=== PATIENT | female | born 1955 | race Caucasian/White ===

== ENCOUNTER → 2017-03-13 | Outpatient (CLI) | payer MEDICARE ==
[2017-03-13 12:06] LABS: ALT 47 U/L (9-52); AST 37 U/L (14-36); Alkaline Phosphatase 69 U/L (38-126); Anion Gap 12 mmol/L; Blood Urea Nitrogen 12 mg/dL (7-17); Calcium 9.8 mg/dL (8.4-10.2); Carbon Dioxide 25 mmol/L (22-30); Chloride 100 mmol/L (98-107); Cholesterol 243 mg/dL (<200); Glucose 223 mg/dL (74-99); HDL Cholesterol 49 mg/dL (40-60); Non-African American GFR(MDRD) >60 (>60 ml/min/1.73 sqM); Potassium 4.8 mmol/L (3.5-5.1); Sodium 137 mmol/L (137-145); Total Bilirubin 0.7 mg/dL (0.2-1.3); Total Protein 7.5 g/dL (6.3-8.2); Triglycerides 460 mg/dL (<150)
== END ==
LOC: LABWHC1 11:27
PROVIDERS: ATTEND Internal Medicine Interventional Cardiology
DX: E78.2 Mixed hyperlipidemia (principal)
CPT/HCPCS: 36415; 80053; 80061

== ENCOUNTER 2022-10-20 05:01 | Emergency (ER) | payer MEDICARE ==
[2022-10-20 05:06] VITALS: RESP 16
[2022-10-20] MEDS ORDERED: ASPIRIN 81 MG PO STA (05:21)
--- NOTE | 2022-10-20 05:25 | ED ---
Chest Pain HPI - General Chief Complaint: Chest Pain Stated Complaint: Chest Pain Time Seen by Provider: 10/20/22 05:11 Source: patient, family Mode of arrival: wheelchair - History of Present Illness Initial Comments: This patient is a 67-year-old woman who presents evaluation for chest pressure that developed a little over 2 hours ago while she was in bed trying to sleep. Patient has been states she has been stressed about her cat that is denying. She noticed she was having pressure in the chest that radiated to her neck and to her right upper extremity. No associated symptoms. The pain did not resolve she came here to have further evaluation. MD Complaint: chest pain -: hour(s) Onset: during rest Pain Location: substernal Pain Radiation: RUE, jaw/teeth Severity: mild Quality: heaviness Consistency: constant Improves With: nothing Worsens With: nothing Treatments Prior to Arrival: none - Related Data Home Medications Medication Instructions Recorded Confirmed Aspirin EC [Ecotrin] 325 mg PO DAILY 09/19/17 09/19/17 Atorvastatin [Lipitor] 40 mg PO HS 09/19/17 09/19/17 Citalopram Hydrobromide [CeleXA] 40 mg PO DAILY 09/19/17 09/19/17 Clopidogrel Bisulfate [Plavix] 75 mg PO DAILY 09/19/17 09/19/17 Dulaglutide [Trulicity] 1.5 mg SQ FR 09/19/17 09/19/17 Empagliflozin [Jardiance] 10 mg PO DAILY 09/19/17 09/19/17 Insulin Detemir [Levemir Flextouch 30 unit SQ QAM 09/19/17 09/19/17 Pen] Insulin Detemir [Levemir Flextouch 40 units SQ HS 09/19/17 09/19/17 Pen] Meclizine HCl 25 mg PO Q8H PRN 09/19/17 09/19/17 Metoprolol Tartrate [Lopressor] 12.5 mg PO BID 09/19/17 09/19/17 Omeprazole 20 mg PO DAILY PRN 09/19/17 09/19/17 guaiFENesin [Mucinex] 600 mg PO DAILY PRN 09/19/17 09/19/17 metFORMIN HCL [Glucophage] 1,000 mg PO BID 09/19/17 09/19/17 Previous Rx's Medication Instructions Recorded Isosorbide Mononitrate ER [Imdur] 30 mg PO DAILY #30 tab.er.24h 09/20/17 Nitroglycerin Sl Tabs [Nitrostat] 0.4 mg SUBLINGUAL Q5M PRN #25 tab 09/20/17 Allergies Allergy/AdvReac Type Severity Reaction Status Date / Time No Known Allergies Allergy Verified 10/20/22 05:06 Review of Systems ROS Statement: Those systems with pertinent positive or pertinent negative responses have been documented in the HPI. ROS Other: All systems not noted in ROS Statement are negative. Constitutional: Denies: fever, chills, weakness Respiratory: Denies: cough, dyspnea Cardiovascular: Reports: chest pain. Denies: palpitations, orthopnea, edema, syncope Gastrointestinal: Denies: abdominal pain, nausea, vomiting Genitourinary: Denies: dysuria, hematuria Musculoskeletal: Denies: back pain Skin: Denies: rash Neurological: Denies: headache, weakness, numbness EKG Findings - EKG Results: EKG: interpreted by GINA MEDINA, sinus rhythm (Rate 68 bpm), normal axis, normal QRS, normal ST/T, no acute changes Past Medical History Past Medical History: Chest Pain / Angina, CVA/TIA, Diabetes Mellitus, Hyperlipidemia, Hypertension, Myocardial Infarction ([place]), Sleep Apnea/CPAP/BIPAP Last Myocardial Infarction Date:: 2006 History of Any Multi-Drug Resistant Organisms: None Reported Past Surgical History: Section, Cholecystectomy, Heart Catheterization With Stent Additional Past Surgical History / Comment(s): 2012 dr wilson repaired/replace a stent Past Anesthesia/Blood Transfusion Reactions: No Reported Reaction Date of Last Stent Placement:: 2012 Past Psychological History: No Psychological Hx Reported Past Alcohol Use History: None Reported Past Drug Use History: None Reported - Past Family History Mother Additional Family Medical History / Comment(s): passed from liver failure. No history of coronary artery disease. Father Additional Family Medical History / Comment(s): passed from kidney failure. No history of coronary artery disease. Sister(s) Family Medical History: No Reported History Brother(s) Family Medical History: No Reported History Daughter(s) Family Medical History: No Reported History Son(s) Additional Family Medical History / Comment(s): both sons have addiction problems, depression and anxiety General Exam General appearance: alert, in no apparent distress Head exam: Present: atraumatic, normocephalic Eye exam: Present: normal appearance. Absent: scleral icterus, conjunctival injection Neck exam: Present: normal inspection Respiratory exam: Present: normal lung sounds bilaterally. Absent: respiratory distress, wheezes, rales, rhonchi, stridor Cardiovascular Exam: Present: regular rate, normal rhythm, normal heart sounds. Absent: systolic murmur, diastolic murmur, rubs, gallop GI/Abdominal exam: Present: soft. Absent: distended, tenderness, guarding, rebound, rigid, mass Extremities exam: Present: normal inspection, normal capillary refill. Absent: pedal edema, calf tenderness Back exam: Present: normal inspection. Absent: CVA tenderness (R), CVA tenderness (L) Neurological exam: Present: alert Skin exam: Present: warm, dry, intact, normal color. Absent: rash Course Vital Signs 10/20/22 10/20/22 10/20/22 05:04 05:06 06:06 Temperature 97.6 F Pulse Rate 74 68 Respiratory 16 16 16 Rate Blood Pressure 157/74 135/74 O2 Sat by Pulse 99 98 Oximetry 10/20/22 06:24 Temperature 98.8 F Pulse Rate 70 Respiratory 16 Rate Blood Pressure 130/74 O2 Sat by Pulse 98 Oximetry Disposition Clinical Impression: Chest pain Disposition: HOME SELF-CARE Condition: Good Instructions (If sedation given, give patient instructions): Chest Pain (ED) Is patient prescribed a controlled substance at d/c from ED?: No Referrals: Varun Hartley MD [Primary Care Provider] - 1-2 days
[2022-10-20 05:36] LABS: Basophils # (A) 0.1 k/uL (0-0.2); Basophils % (A) 1 %; Eosinophils # (A) 0.2 k/uL (0-0.7); Eosinophils % (A) 4 %; HCT 34.8 % (34.0-46.0); HGB 12.3 gm/dL (11.4-16.0); Hypochromasia Slight; Lymphocytes # (A) 2.4 k/uL (1.0-4.8); Lymphocytes % (A) 36 %; MCH 30.7 pg (25.0-35.0); MCHC 35.2 g/dL (31.0-37.0); MCV 87.3 fL (80.0-100.0); Mean Platelet Volume 7.7; Monocytes # (A) 0.3 k/uL (0-1.0); Monocytes % (A) 5 %; Neutrophils # (A) 3.4 k/uL (1.3-7.7); Neutrophils % (A) 51 %; Platelet Count 286 k/uL (150-450); RBC 3.99 m/uL (3.80-5.40); WBC 6.7 k/uL (3.8-10.6)
--- NOTE | 2022-10-20 05:36 | XR ---
EXAMINATION TYPE: XR chest 2V DATE OF EXAM: 10/20/2022 COMPARISON: 09/19/2017 HISTORY: Chest pain TECHNIQUE: 2 views FINDINGS: Heart is normal. Lungs are clear. Diaphragm is normal. Bony thorax is intact. IMPRESSION: No active cardiopulmonary disease. Inspiration decreased compared to the old exam.
[2022-10-20 05:58] LABS: INR 0.9 (<1.2); Partial Thromboplastin Time 22.6 sec (22.0-30.0); Prothrombin Time 9.8 sec (9.0-12.0)
[2022-10-20 06:04] LABS: ALT 16 U/L (4-34); AST 20 U/L (14-36); African American GFR (CKD) >90 (>60 ml/min/1.73 sqM); Alkaline Phosphatase 67 U/L (38-126); Anion Gap 8 mmol/L; Blood Urea Nitrogen 14 mg/dL (7-17); Calcium 8.8 mg/dL (8.4-10.2); Carbon Dioxide 27 mmol/L (22-30); Chloride 99 mmol/L (98-107); Glucose 297 mg/dL (74-99); Magnesium 1.7 mg/dL (1.6-2.3); Non-African American GFR(CKD) >90 (>60 ml/min/1.73 sqM); Sodium 134 mmol/L (137-145); Total Bilirubin 0.4 mg/dL (0.2-1.3); Total Protein 6.5 g/dL (6.3-8.2)
[2022-10-20 06:25] VITALS: BP 130/74; PULSE 70; TEMP 98.8
== END 2022-10-20 06:26 | disposition home or self-care (01) ==
LOC: EC 05:01
DX: R07.89 Other chest pain (principal); E11.9 Type 2 diabetes mellitus without complications; I10 Essential (primary) hypertension; E78.5 Hyperlipidemia, unspecified; I25.2 Old myocardial infarction; G47.30 Sleep apnea, unspecified; Z79.82 Long term (current) use of aspirin; Z79.84 Long term (current) use of oral hypoglycemic drugs; Z79.899 Other long term (current) drug therapy; I63.9 Cerebral infarction, unspecified
CPT/HCPCS: 36415; 71046; 80053; 83735; 84484; 85025; 85610; 85730; 93005; 99285

== ENCOUNTER 2022-11-06 12:52 | Inpatient (IN) | payer MEDICARE ==
[2022-11-06 13:08] LABS: Glucose,Whole Blood 82 mg/dL (70-110)
--- NOTE | 2022-11-06 13:22 | ED ---
Neuro HPI - General Chief Complaint: Neuro Symptoms/Deficit Stated Complaint: unable to speak, SOB Time Seen by Provider: 11/06/22 13:11 Source: patient, family Mode of arrival: wheelchair - History of Present Illness Is the patient presenting with stroke symptoms?: Yes Initial Comments: This 59-year-old female presents with complaint of possible stroke. The patient apparently developed some expressive aphasia and slurred speech 45 minutes prior to arrival. Her last known well then would be approximately 12:15 PM today. She states that she has dyspnea as well. Her presents with her and states that he was present when this occurred. She seemed to have difficulty in her speech, both slurred, and not getting the correct words out. He also states that she had problems with her vision with difficulties in seeing him almost like, vision or double vision. He also relates that she had a similar episode 3 weeks ago where she had a facial droop anything she might of had a TIA at that time. She does have a significant cardiac history with history of previous cardiopulmonary arrest and cardiac stenting. She apparently is scheduled for cardiac stent this next week by Dr. Wilson. She denies any other complaints or modifying factors. There is no chest pain, abdominal pain, or leg swelling. She denies any weakness of upper or lower extremities. She denies any current visual deficits. There is no problems with coordination. She states that she feels slightly confused. The patient is on Plavix as well as aspirin but denies being on any other blood thinners. On recheck, she does complain of a headache diffusely. - Related Data Home Medications: Home Medications Medication Instructions Recorded Confirmed Atorvastatin [Lipitor] 40 mg PO DAILY 09/19/17 11/06/22 Citalopram Hydrobromide [CeleXA] 40 mg PO HS 09/19/17 11/06/22 Clopidogrel Bisulfate [Plavix] 75 mg PO HS 09/19/17 11/06/22 Meclizine HCl 25 mg PO DAILY 09/19/17 11/06/22 Metoprolol Tartrate [Lopressor] 25 mg PO HS 09/19/17 11/06/22 metFORMIN HCL [Glucophage] 1,000 mg PO BID 09/19/17 11/06/22 Aspirin EC [Ecotrin Low Dose] 81 mg PO DAILY 11/06/22 11/06/22 Dulaglutide [Trulicity] 3 mg SQ BARNARD 11/06/22 11/06/22 Insulin Degludec [Tresiba 30 units SQ HS 11/06/22 11/06/22 Flextouch U-200 Pen] Pantoprazole [Protonix] 40 mg PO DAILY 11/06/22 11/06/22 Pioglitazone [Actos] 30 mg PO HS 11/06/22 11/06/22 Allergies/Adverse Reactions: Allergies Allergy/AdvReac Type Severity Reaction Status Date / Time No Known Allergies Allergy Verified 11/06/22 14:01 Review of Systems ROS Statement: Those systems with pertinent positive or pertinent negative responses have been documented in the HPI. ROS Other: All systems not noted in ROS Statement are negative. General Exam - General Exam Comments Initial Comments: GENERAL: The patient is well nourished and well hydrated. VITAL SIGNS: Heart rate, blood pressure, respiratory rate reviewed as recorded in nurse's notes. EYES: Pupils are round and reactive. Extraocular movements are intact. No conjunctival / lid redness or swelling. ENT: No external evidence of injury, swelling, or ecchymosis. Airway is patent. Throat is clear. NECK: Nontender. No swelling or evidence of injury. No subcutaneous emphysema. Trachea is midline. No thyroid mass. HEART: Regular rate and rhythm. Good peripheral pulses. LUNGS/CHEST: Breath sounds clear and equal bilaterally. No rales, rhonchi, or wheezes. No ecchymosis, subcutaneous emphysema, or tenderness. ABDOMEN: Abdomen soft without tenderness. No palpable masses or organomegaly. No peritoneal signs. No abdominal wall swelling or ecchymosis. EXTREMITIES: No extremity tenderness. Normal muscle tone and function. No thoracolumbar tenderness. NEUROLOGIC: Sensation is grossly intact. Cranial nerve exam reveals face is symmetrical, tongue is midline, speech may be slightly slurred. There may be some minimal expressive aphasia. SKIN: No abrasions or ecchymosis is noted. No induration or masses noted. PSYCHIATRIC: Alert and oriented. Appropriate behavior and judgment. Stroke MDM - Lab Data Result diagrams: 11/06/22 13:00 11/06/22 13:00 Lab Results 11/06/22 11/06/22 11/06/22 Range/Units 13:00 13:00 13:00 WBC 7.9 (3.8-10.6) k/uL RBC 4.39 (3.80-5.40) m/uL Hgb 12.0 (11.4-16.0) gm/dL Hct 36.8 (34.0-46.0) % MCV 83.9 (80.0-100.0) fL MCH 27.3 (25.0-35.0) pg MCHC 32.6 (31.0-37.0) g/dL RDW 13.7 (11.5-15.5) % Plt Count 319 (150-450) k/uL MPV 7.1 Neutrophils % 52 % Lymphocytes % 38 % Monocytes % 4 % Eosinophils % 2 % Basophils % 1 % Neutrophils # 4.1 (1.3-7.7) k/uL Lymphocytes # 3.0 (1.0-4.8) k/uL Monocytes # 0.3 (0-1.0) k/uL Eosinophils # 0.1 (0-0.7) k/uL Basophils # 0.1 (0-0.2) k/uL Poikilocytosis Slight PT 10.3 (9.0-12.0) sec INR 1.0 (<1.2) APTT 21.8 L (22.0-30.0) sec Sodium 133 L (137-145) mmol/L Potassium 5.2 H (3.5-5.1) mmol/L Chloride 98 (98-107) mmol/L Carbon Dioxide 24 (22-30) mmol/L Anion Gap 11 mmol/L BUN 14 (7-17) mg/dL Creatinine 0.58 (0.52-1.04) mg/dL Est GFR (CKD-EPI)AfAm >90 (>60 ml/min/1.73 sqM) Est GFR (CKD-EPI)NonAf >90 (>60 ml/min/1.73 sqM) Glucose 73 L (74-99) mg/dL POC Glucose (mg/dL) (70-110) mg/dL POC Glu Molasses And Caramel Operator ID Calcium 9.5 (8.4-10.2) mg/dL Total Bilirubin 0.6 (0.2-1.3) mg/dL AST 32 (14-36) U/L ALT 20 (4-34) U/L Alkaline Phosphatase 48 (38-126) U/L Troponin I (0.000-0.034) ng/mL Total Protein 7.2 (6.3-8.2) g/dL Albumin 4.5 (3.5-5.0) g/dL Urine Color Urine Appearance (Clear) Urine pH (5.0-8.0) Ur Specific [place] (1.001-1.035) Urine Protein (Negative) Urine Glucose (UA) (Negative) Urine Ketones (Negative) Urine Blood (Negative) Urine Nitrite (Negative) Urine Bilirubin (Negative) Urine Urobilinogen (<2.0) mg/dL Ur Leukocyte Esterase (Negative) Urine RBC (0-5) /hpf Urine WBC (0-5) /hpf Ur Squamous Epith Cells (0-4) /hpf Urine Mucus (None) /hpf 11/06/22 11/06/22 11/06/22 Range/Units 13:00 13:06 15:12 WBC (3.8-10.6) k/uL RBC (3.80-5.40) m/uL Hgb (11.4-16.0) gm/dL Hct (34.0-46.0) % MCV (80.0-100.0) fL MCH (25.0-35.0) pg MCHC (31.0-37.0) g/dL RDW (11.5-15.5) % Plt Count (150-450) k/uL MPV Neutrophils % % Lymphocytes % % Monocytes % % Eosinophils % % Basophils % % Neutrophils # (1.3-7.7) k/uL Lymphocytes # (1.0-4.8) k/uL Monocytes # (0-1.0) k/uL Eosinophils # (0-0.7) k/uL Basophils # (0-0.2) k/uL Poikilocytosis PT (9.0-12.0) sec INR (<1.2) APTT (22.0-30.0) sec Sodium (137-145) mmol/L Potassium (3.5-5.1) mmol/L Chloride (98-107) mmol/L Carbon Dioxide (22-30) mmol/L Anion Gap mmol/L BUN (7-17) mg/dL Creatinine (0.52-1.04) mg/dL Est GFR (CKD-EPI)AfAm (>60 ml/min/1.73 sqM) Est GFR (CKD-EPI)NonAf (>60 ml/min/1.73 sqM) Glucose (74-99) mg/dL POC Glucose (mg/dL) 82 (70-110) mg/dL POC Glu Molasses And Caramel Operator [place] Calcium (8.4-10.2) mg/dL Total Bilirubin (0.2-1.3) mg/dL AST (14-36) U/L ALT (4-34) U/L Alkaline Phosphatase (38-126) U/L Troponin I <0.012 (0.000-0.034) ng/mL Total Protein (6.3-8.2) g/dL Albumin (3.5-5.0) g/dL Urine Color Light Yellow Urine Appearance Clear (Clear) Urine pH 5.5 (5.0-8.0) Ur Specific [place] 1.042 H (1.001-1.035) Urine Protein Negative (Negative) Urine Glucose (UA) Negative (Negative) Urine Ketones Negative (Negative) Urine Blood Negative (Negative) Urine Nitrite Negative (Negative) Urine Bilirubin Negative (Negative) Urine Urobilinogen <2.0 (<2.0) mg/dL Ur Leukocyte Esterase Moderate H (Negative) Urine RBC <1 (0-5) /hpf Urine WBC 7 H (0-5) /hpf Ur Squamous Epith Cells <1 (0-4) /hpf Urine Mucus Rare H (None) /hpf - NIH Stroke Scale 1a. Level of Consciousness: (0) alert 1b. LOC Questions: (0) answers correctly 1c. LOC Commands: (0) performs tasks correctly 2. Best Gaze: (0) normal 3. Visual: (0) no visual loss 4. Facial Palsy: (0) normal symmetrical movement 5a. Motor Arm Left: (0) no drift 5b. Motor Arm Right: (0) no drift 6a. Motor Leg Left: (0) no drift 6b. Motor Leg Right: (0) no drift 7. Limb Ataxia: (0) absent 8. Sensory: (0) normal 9. Best Language: (1) mild/moderate aphasia 10. Dysarthria: (1) mild/moderate dysarthria 11. Extinction/Inattention: (0) no abnormality - Medical Decision Making The patient was seen immediately upon arrival. The patient was brought to trauma bay 1 his code stroke. Code alteplase is called overhead. She is placed on a writer technical publications no ectopy is identified. IV is established. The patient also had a EKG done which shows a normal sinus rhythm at a rate of 67. There is no acute ST-T wave changes identified. The HI interval is 160, QRS duration is 93, and the QTc interval is 415. The patient had a computed tomography scan of the brain without contrast and this does not show any acute process. Upon reevaluation, the patient's blood pressure is elevated and she receives labetal ol 20 mg IV. She also was complaining of a headache and receives 2 mg of morphine. The accurate medication list is obtained and she is on aspirin as well as Plavix among other medications but no other blood thinners. The patient states that her speech including aphasia answered speech has improved since being in the emergency department. It is not felt as though she will would be a candidate for TPA due to improvement of her symptomatology and mild symptomatology. Her NIH stroke scale is rated at 2. A call is placed to interventional neurology at 1:40 PM. The case is discussed with Dr. Sifuentes, our neurologist, and 1:50 PM. He is informed of the cases well and also does not feel as though patient likely will be a TPA candidate as her NIH stroke scale now is 0. He, however, will defer to the interventional neurologist for their recommendations. The interventional neurologist was finally contacted on fourth attempt case is discussed with Dr. Heller. He recommends continuing the aspirin, changing the Plavix to Brelenta, obtaining an MRI of the brain. He'll be happy to follow-up with patient on an outpatient basis. He does not recommend TPA at this time. Case is discussed with Dr. Dubois and he is agreeable with admission. Approximately 40 minutes critical care time was utilized and the treatment of the patient. The cardiac profile labs are all essentially within normal limits. Patient and were updated on multiple occasions. Of note, the CT angiogram of the head and neck doesn't show severe right carotid stenosis. Was pt. sent in by a medical professional or institution (, PA, MINING CONSULTANT, urgent care, hospital, or usp...) When possible be specific @ -[No] Did you speak to anyone other than the patient for history (EMS, parent, family, police, friend...)? What history was obtained from this source @ -I did speak with the gives additional history in regards to acute event. Did you review nursing and triage notes (agree or disagree)? Why? @ -[I reviewed and agree with nursing and triage notes] Were old charts reviewed (outside hosp., previous admission, EMS record, old EKG, old radiological studies, urgent care reports/EKG's, usp records)? Report findings @ -All available records were reviewed. Differential Diagnosis (chest pain, altered mental status, abdominal pain women, abdominal pain men, vaginal bleeding, weakness, fever, dyspnea, syncope, headache, dizziness, GI bleed, back pain, seizure, CVA, palpatations, mental health)? @ -Acute CVA, carotid stenosis, expressive aphasia, dysarthria, hypertension EKG interpreted by me (3pts min.). @ -As above X-rays interpreted by me (1pt min.). @ -[None done] CT interpreted by me (1pt min.). @ -CT is interpreted by radiologist as above U/S interpreted by me (1pt. min.). @ -[None done] What testing was considered but not performed or refused? (CT, X-rays, U/S, labs)? Why? @ -[None] What meds were considered but not given or refused? Why? @ -TPA was considered but not given as patient's symptoms significantly improved and it was not recommended by interventional neurologist. Did you discuss the management of the patient with other professionals (professionals i.e. , PA, MINING CONSULTANT, lab, RT, psych nurse, social work associate, marketing clerk, teacher, first aid officer, welfare case worker)? Give summary @ -I did discuss the case with the interventional neurologist, in-house neurologist, and internal medicine physician. Was smoking cessation discussed for >3mins.? @ -[No] Was critical care preformed (if so, how long)? @ -40 minutes of critical care time was utilized and the treatment of the patient. Were there social determinants of health that impacted care today? How? (Homelessness, low income, unemployed, alcoholism, drug addiction, transportation, low edu. Level, literacy, decrease access to med. care, longterm, rehab)? @ -[No] Was there de-escalation of care discussed even if they declined (Discuss DNR or withdrawal of care, Hospice)? DNR status @ -[No] What co-morbidities impacted this encounter? (DM, HTN, Smoking, COPD, CAD, Cancer, CVA, ARF, Chemo, Hep., AIDS, mental health diagnosis, sleep apnea, morbid obesity)? @ -[None] Was patient admitted / discharged? Hospital course, mention meds given and route, prescriptions, significant lab abnormalities, going to OR and other pertinent info. @ -The patient was seen and examined immediately after arrival. Code alteplase was called and the patient had immediate computed tomography scan as above. The patient does relate that her symptoms improved throughout her hospital ER course. TPA is not administered. Case was discussed with multiple consultants. The CT of the neck does show some carotid stenosis. Internal medicine does recommend evaluation by vascular surgery for the carotid stenosis. She is agreeable with admission and is doing well on recheck. Her blood pressure was elevated and did come down nicely with labetalol. Aspirin is given. Undiagnosed new problem with uncertain prognosis? @ -Yes, undiagnosed problem Drug Therapy requiring intensive monitoring for toxicity (Heparin, Nitro, Insulin, Cardizem)? @ -[No] Were any procedures done? @ -[No] Diagnosis/symptom? @ -Acute CVA, carotid stenosis, hypertension Acute, or Chronic, or Acute on Chronic? @ -Acute Uncomplicated (without systemic symptoms) or Complicated (systemic symptoms)? @ -Uncomplicated Side effects of treatment? @ -[No] Exacerbation, Progression, or Severe Exacerbation? @ -Severe exacerbation Poses a threat to life or bodily function? How? (Chest pain, [place], OR, pneumonia, PE, COPD, DKA, ARF, appy, cholecystitis, CVA, Diverticulitis, Homicidal, Suicidal, threat to staff... and all critical care pts) @ -Yes Past Medical History Past Medical History: Chest Pain / Angina, CVA/TIA, Diabetes Mellitus, Hyperlipidemia, Hypertension, Myocardial Infarction ([place]), Sleep Apnea/CPAP/BIPAP Last Myocardial Infarction Date:: 2006 History of Any Multi-Drug Resistant Organisms: None Reported Past Surgical History: Section, Cholecystectomy, Heart Catheterization With Stent Additional Past Surgical History / Comment(s): 2012 dr wilson repaired/replace a stent Past Anesthesia/Blood Transfusion Reactions: No Reported Reaction Date of Last Stent Placement:: 2012 Past Psychological History: No Psychological Hx Reported Smoking Status: Never smoker Past Alcohol Use History: None Reported Past Drug Use History: None Reported - Past Family History Mother Additional Family Medical History / Comment(s): passed from liver failure. No history of coronary artery disease. Father Additional Family Medical History / Comment(s): passed from kidney failure. No history of coronary artery disease. Sister(s) Family Medical History: No Reported History Brother(s) Family Medical History: No Reported History Daughter(s) Family Medical History: No Reported History Son(s) Additional Family Medical History / Comment(s): both sons have addiction problems, depression and anxiety Course Vital Signs 11/06/22 11/06/22 11/06/22 12:56 13:30 14:00 Temperature 97 F L Pulse Rate 62 70 Respiratory 18 19 18 Rate Blood Pressure 187/103 207/108 192/93 O2 Sat by Pulse 100 98 Oximetry 11/06/22 11/06/22 11/06/22 14:30 15:16 16:36 Temperature Pulse Rate 70 67 82 Respiratory 17 17 18 Rate Blood Pressure 158/77 161/71 153/61 O2 Sat by Pulse 96 97 97 Oximetry 11/06/22 11/06/22 11/06/22 17:02 17:40 18:04 Temperature 98.0 F 98.1 F Pulse Rate 69 68 75 Respiratory 18 17 17 Rate Blood Pressure 124/74 149/74 161/78 O2 Sat by Pulse 99 98 98 Oximetry Disposition Clinical Impression: Cerebrovascular accident (CVA), Dyspnea, Hypertension, Carotid stenosis Disposition: ADMITTED IP TO THIS [facility] Condition: Fair Is patient prescribed a controlled substance at d/c from ED?: No Time of Disposition: 14:59 Decision Date: 11/06/22 Decision Time: 14:59
--- NOTE | 2022-11-06 13:36 | CT ---
EXAMINATION TYPE: CT brain wo con for TPA DATE OF EXAM: 11/06/2022 COMPARISON: 09/25/2013 INDICATION: aphasia and right side weakness DLP: 1118.6 mGycm, Automated exposure control for dose reduction was used. CONTRAST: None CT of the brain is performed utilizing 3 mm thick sections through the posterior fossa and 3 mm thick sections through the remaining calvarium. Study is performed within 24 hours of arrival to the hosp ital. No abnormal hyperdensity is present to suggest an acute intracranial hemorrhage. No mass lesion is evident. No acute infarcts are evident. Some mild periventricular white matter hypodensity is present, likely on the basis of chronic white matter ischemic changes. Some mild hypodensity may be within the mid br ainstem on one image. Series 201 image 11. Correlate with the patient's symptoms. This could be artif act Ventricles and sulci are mildly prominent for the patient age. Paranasal sinuses and mastoid air cells within the [id number] are clear. IMPRESSIONS: 1. White matter changes which is nonspecific. Follow-up MRI can be performed as clinically indicate d.
[2022-11-06] MEDS ORDERED: LABETALOL 5 MG/ML VIAL MDV IVP STA (13:41)
[2022-11-06] MEDS ORDERED: MORPHINE SULFATE 2 MG/ML SYRINGE IVP STA (13:43)
[2022-11-06 14:06] LABS: Basophils # (A) 0.1 k/uL (0-0.2); Basophils % (A) 1 %; Eosinophils # (A) 0.1 k/uL (0-0.7); Eosinophils % (A) 2 %; HCT 36.8 % (34.0-46.0); Lymphocytes % (A) 38 %; MCH 27.3 pg (25.0-35.0); MCHC 32.6 g/dL (31.0-37.0); MCV 83.9 fL (80.0-100.0); Mean Platelet Volume 7.1; Monocytes # (A) 0.3 k/uL (0-1.0); Monocytes % (A) 4 %; Neutrophils # (A) 4.1 k/uL (1.3-7.7); Neutrophils % (A) 52 %; Platelet Count 319 k/uL (150-450); Poikilocytosis Slight; RBC 4.39 m/uL (3.80-5.40); RDW 13.7 % (11.5-15.5); WBC 7.9 k/uL (3.8-10.6)
[2022-11-06 14:19] LABS: Partial Thromboplastin Time 21.8 sec (22.0-30.0); Prothrombin Time 10.3 sec (9.0-12.0)
[2022-11-06 14:25] LABS: ALT 20 U/L (4-34); AST 32 U/L (14-36); African American GFR (CKD) >90 (>60 ml/min/1.73 sqM); Albumin 4.5 g/dL (3.5-5.0); Alkaline Phosphatase 48 U/L (38-126); Anion Gap 11 mmol/L; Blood Urea Nitrogen 14 mg/dL (7-17); Calcium 9.5 mg/dL (8.4-10.2); Carbon Dioxide 24 mmol/L (22-30); Chloride 98 mmol/L (98-107); Glucose 73 mg/dL (74-99); Non-African American GFR(CKD) >90 (>60 ml/min/1.73 sqM); Sodium 133 mmol/L (137-145); Total Bilirubin 0.6 mg/dL (0.2-1.3); Total Protein 7.2 g/dL (6.3-8.2)
--- NOTE | 2022-11-06 14:27 | XR ---
EXAMINATION TYPE: XR chest 2V DATE OF EXAM: 11/06/2022 COMPARISON: NONE TECHNIQUE: PA and lateral views submitted. HISTORY: Shortness of breath FINDINGS: The lungs are clear and there is no pneumothorax, pleural effusion, or focal pneumonia. Heart size, and no overt failure. Osseous structures demonstrate hypertrophic and degenerative changes of the sp ine. Previous coronary stenting noted. Appropriate alignment. IMPRESSION: 1. No acute process.
--- NOTE | 2022-11-06 14:31 | CT ---
EXAMINATION TYPE: CT angio head neck DATE OF EXAM: 11/06/2022 HISTORY: COMPARISON: None CT DLP: 550 mGycm. Automated Exposure Control for Dose Reduction was Utilized. TECHNIQUE: CTA scan of the neck is performed with IV Contrast, patient injected with 65 mL of Isovue 370, axial images are obtained, coronal and sagittal reformatted images are reviewed. Three-D recons tructed images are created on an independent workstation and reviewed. Source images are reviewed. FINDINGS: Carotid/Vascular Structures: There may be common origin of the innominate and left common carotid art [place]. Plaquing is present at the left carotid bifurcation. This is estimated at 72% narrowing based on NASCET criteria. Significant flow-limiting stenosis within the right carotid bifurcation is not evid ent. Vertebral arteries are codominant. Cervical of [place]: Vertebral basilar system appears normal. Some air in the distal right vertebral a rtery may be present. Posterior cerebral vasculature is unremarkable. Internal carotid arteries bifur pravin normally into A1 and M1 segments. A2 segments are normal. The anterior communicating artery is p atent. Communicating arteries are absent. IMPRESSION: 1. Severe stenosis greater than 72% within the right internal carotid artery origin. 2. No acute abnormality [place] of [place]. NASCET criteria was used in interpretation of this exam?
[2022-11-06 14:43] LABS: Potassium 5.2 mmol/L (3.5-5.1)
[2022-11-06 15:27] LABS: Appearance,Urine Clear (Clear); Bilirubin,Urine Negative (Negative); Blood,Urine Negative (Negative); Color,Urine Light Yellow; Glucose,Urine (UA) Negative (Negative); Ketones,Urine Negative (Negative); Leukocyte Esterase,Urine Moderate (Negative); Mucus,Urine Rare /hpf; Nitrite,Urine Negative (Negative); PH, Urine 5.5 (5.0-8.0); Protein,Urine Negative (Negative); RBC,Urine <1 /hpf (0-5); Specific Gravity,Urine 1.042 (1.001-1.035); Squamous Epithelial Cell,Urine <1 /hpf (0-4); Urobilinogen,Urine <2.0 mg/dL (<2.0); WBC,Urine 7 /hpf (0-5)
[2022-11-06] MEDS ORDERED: TICAGRELOR 90 MG TAB PO STA (15:38)
[2022-11-06] MEDS: ASPIRIN 81 MG PO STA ×2 (15:44→15:47)
[2022-11-06] MEDS: ENOXAPARIN 40 MG/0.4 ML SYRINGE SQ SCH (15:51)
--- NOTE | 2022-11-06 16:10 | P.HPIM ---
History of Present Illness Patient is an 67-year-old female came in with the complaints of progressive aphasia and speech abnormality 5 minutes before arriving via. symptoms resolved shortly after that. Patient had a recent as such event which the weak ness in the right side of the face and patient was started on aspirin and Plavix. Patient had a CT angios the head and neck which showed around 75-80% stenosis on the right internal carotid. Patient denied any other weakness. CT of the head showed some nonspecific white matter changes. Neurology was consulted light panel is being obtained. REVIEW OF SYSTEMS: CONSTITUTIONAL: No fever, no malaise, no fatigue. HEENT: No recent visual problems or hearing problems. Denied any sore throat. CARDIOVASCULAR: No chest pain, orthopnea, PND, no palpitations, no syncope. PULMONARY: No shortness of breath, no cough, no hemoptysis. GASTROINTESTINAL: No diarrhea, no nausea, no vomiting, no abdominal pain. NEUROLOGICAL: No headaches, no weakness, no numbness. HEMATOLOGICAL: Denies any bleeding or petechiae. GENITOURINARY: Denies any burning micturition, frequency, or urgency. MUSCULOSKELETAL/RHEUMATOLOGICAL: Denies any joint pain, swelling, or any muscle pain. ENDOCRINE: Denies any polyuria or polydipsia. The rest of the 14-point review of systems is negative. PHYSICAL EXAMINATION: GENERAL: The patient is alert and oriented x3, not in any acute distress. Well developed, well nourished. HEENT: Pupils are round and equally reacting to light. EOMI. No scleral icterus. No conjunctival pallor. Normocephalic, atraumatic. No pharyngeal erythema. No thyromegaly. CARDIOVASCULAR: S1 and S2 present. No murmurs, rubs, or gallops. PULMONARY: Chest is clear to auscultation, no wheezing or crackles. ABDOMEN: Soft, nontender, nondistended, normoactive bowel sounds. No palpable o rganomegaly. MUSCULOSKELETAL: No joint swelling or deformity. EXTREMITIES: No cyanosis, clubbing, or pedal edema. NEUROLOGICAL: Gross neurological examination did not reveal any focal deficits. SKIN: No rashes. Assessment and plan -Possible TIA: Neurology evaluation possible MRI, patient was started on Brillinta and aspirin. Vascular surgery will be canceled it because of carotid occlusion and TIA. -Coronary artery disease patient is scheduled to undergo cardiac catheterization, patient had a stent in the past -Diabetes mellitus -Hyperlipidemia -Hypertension -Sleep apnea -Mild hypovolemic hyponatremia DVT prophylaxis: Early ambulation Past Medical History Past Medical History: Chest Pain / Angina, CVA/TIA, Diabetes Mellitus, Hyperlipidemia, Hypertension, Myocardial Infarction ([place]), Sleep Apnea/CPAP/BIPAP Last Myocardial Infarction Date:: 2006 History of Any Multi-Drug Resistant Organisms: None Reported Past Surgical History: Section, Cholecystectomy, Heart Catheterization With Stent Additional Past Surgical History / Comment(s): 2012 dr wilson repaired/replace a stent Past Anesthesia/Blood Transfusion Reactions: No Reported Reaction Date of Last Stent Placement:: 2012 Past Psychological History: No Psychological Hx Reported Smoking Status: Never smoker Past Alcohol Use History: None Reported Past Drug Use History: None Reported - Past Family History Mother Additional Family Medical History / Comment(s): passed from liver failure. No history of coronary artery disease. Father Additional Family Medical History / Comment(s): passed from kidney failure. No history of coronary artery disease. Sister(s) Family Medical History: No Reported History Brother(s) Family Medical History: No Reported History Daughter(s) Family Medical History: No Reported History Son(s) Additional Family Medical History / Comment(s): both sons have addiction problems, depression and anxiety Medications and Allergies Home Medications Medication Instructions Recorded Confirmed Type Atorvastatin [Lipitor] 40 mg PO DAILY 09/19/17 11/06/22 History Citalopram Hydrobromide [CeleXA] 40 mg PO HS 09/19/17 11/06/22 History Clopidogrel Bisulfate [Plavix] 75 mg PO HS 09/19/17 11/06/22 History Meclizine HCl 25 mg PO DAILY 09/19/17 11/06/22 History Metoprolol Tartrate [Lopressor] 25 mg PO HS 09/19/17 11/06/22 History metFORMIN HCL [Glucophage] 1,000 mg PO BID 09/19/17 11/06/22 History Aspirin EC [Ecotrin Low Dose] 81 mg PO DAILY 11/06/22 11/06/22 History Dulaglutide [Trulicity] 3 mg SQ BARNARD 11/06/22 11/06/22 History Insulin Degludec [Tresiba 30 units SQ HS 11/06/22 11/06/22 History Flextouch U-200 Pen] Pantoprazole [Protonix] 40 mg PO DAILY 11/06/22 11/06/22 History Pioglitazone [Actos] 30 mg PO HS 11/06/22 11/06/22 History Allergies Allergy/AdvReac Type Severity Reaction Status Date / Time No Known Allergies Allergy Verified 11/06/22 14:01 Physical Exam Vitals: Vital Signs Temp Pulse Resp BP Pulse Ox 11/06/22 15:16 67 17 161/71 97 11/06/22 14:30 70 17 158/77 96 11/06/22 14:00 70 18 192/93 98 11/06/22 13:30 19 207/108 11/06/22 12:56 97 F L 62 18 187/103 100 Intake and Output 11/06/22 11/06/22 11/06/22 06:59 14:59 22:59 Other: Weight 80.467 kg Results CBC & Chem 7: 11/06/22 13:00 11/06/22 13:00 Labs: Abnormal Lab Results - Last 24 Hours (Table) 11/06/22 11/06/22 11/06/22 Range/Units 13:00 13:00 15:12 APTT 21.8 L (22.0-30.0) sec Sodium 133 L (137-145) mmol/L Potassium 5.2 H (3.5-5.1) mmol/L Glucose 73 L (74-99) mg/dL Ur Specific [place] 1.042 H (1.001-1.035) Ur Leukocyte Esterase Moderate H (Negative) Urine WBC 7 H (0-5) /hpf Urine Mucus Rare H (None) /hpf
[2022-11-06] MEDS: metFORMIN 500 MG TAB PO SCH (16:34)
[2022-11-06] MEDS ORDERED: ACETAMINOPHEN TAB 325 MG TAB PO PRN (16:41)
[2022-11-06 16:55] LABS: Magnesium 1.4 mg/dL (1.6-2.3); Phosphorus 5.1 mg/dL (2.5-4.5)
[2022-11-06 19:46] LABS: Glucose,Whole Blood 72 mg/dL (70-110)
[2022-11-06] MEDS: INSULIN DETEMIR (LEVEMIR) 100 UNIT/ML SYR SQ SCH (20:30)
[2022-11-06] MEDS: PIOGLITAZONE 30 MG TAB PO SCH (20:30)
[2022-11-06] MEDS: ATORVASTATIN 80 MG TAB PO SCH (20:34)
[2022-11-06] MEDS: CITALOPRAM HYDROBROMIDE 20 MG TAB PO SCH (20:34)
[2022-11-06] MEDS ORDERED: METOPROLOL TARTRATE 25 MG TAB PO SCH (21:00)
[2022-11-07 06:07] LABS: Glucose,Whole Blood 95 mg/dL (70-110)
[2022-11-07] MEDS: metFORMIN 500 MG TAB PO SCH ×2 (06:27→17:00)
[2022-11-07] MEDS: PANTOPRAZOLE 40 MG TABLET PO SCH (06:27)
--- NOTE | 2022-11-07 08:11 | US ---
EXAMINATION TYPE: US carotid duplex BILAT DATE OF EXAM: 11/07/2022 COMPARISON: CTA head and neck 11/06/2022 CLINICAL HISTORY: possible TIA, right ICA stenosis. Pt states slurred speech, H/O TIA TECHNIQUE: Carotid duplex ultrasound examination. Indirect Doppler criteria was utilized. 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 No significant velocity elevations IMPRESSION: Mild right and moderate left atherosclerotic calcification of the carotid bulbs with less than 50% st enosis of the bilateral internal carotid arteries. Criteria for Assigning % of Stenosis / Diameter reduction (Estimation based on the indirect measurements of the internal carotid artery velocities (ICA PSV). 1. Normal (no stenosis)=ICA PSV < 125 cm/s: ratio < 2.0: ICA EDV<40 cm/s. 2. Less than 50% stenosis=ICA PSV < 125 cm/s: ratio < 2.0: ICA EDV<40 cm/s. 3. 50 to 69% stenosis=ICA PSV of 125 to 230 cm/s: ration 2.0 ? 4.0: ICA EDV 40-100 cm/s. 4. Greater than 70% stenosis to near occlusion= ICA PSV > 230 cm/s: ratio > 4.0: ICA EDV > 100 cm/s. 5. Near occlusion= ICA PSV velocities may be low or undetectable: variable ratio and ICA EDV. 6. Total occlusion=unable to detect flow.
[2022-11-07 08:42] LABS: African American GFR (CKD) >90 (>60 ml/min/1.73 sqM); Anion Gap 5 mmol/L; Blood Urea Nitrogen 12 mg/dL (7-17); Calcium 9.1 mg/dL (8.4-10.2); Carbon Dioxide 31 mmol/L (22-30); Chloride 99 mmol/L (98-107); Glucose 82 mg/dL (74-99); Magnesium 1.6 mg/dL (1.6-2.3); Non-African American GFR(CKD) >90 (>60 ml/min/1.73 sqM); Phosphorus 4.7 mg/dL (2.5-4.5); Potassium 3.9 mmol/L (3.5-5.1); Sodium 135 mmol/L (137-145)
[2022-11-07] MEDS: ASPIRIN 81 MG PO SCH (09:17)
[2022-11-07] MEDS: ENOXAPARIN 40 MG/0.4 ML SYRINGE SQ SCH (09:17)
[2022-11-07] MEDS: TICAGRELOR 90 MG TAB PO SCH (09:18)
[2022-11-07] MEDS: MECLIZINE 25 MG TAB PO SCH (09:18)
--- NOTE | 2022-11-07 10:27 | P.GSCN ---
History of Present Illness Consult date: 11/07/22 Reason for Consult: Carotid stenosis Requesting physician: Joao Evangelista History of present illness: This is a pleasant 67-year-old female with a past medical history including diabetes mellitus, coronary artery disease, with cardiac stents, and previous cardiac arrest, TIA approximately 3 years ago was currently on Plavix and aspirin and came in for concerns for difficulty with her words and visual changes. States yesterday she was trying to talk to her and she could not get words out right, had slight slurring of the words as well as states that she had double vision. She states both eyes were affected. She states her whole body felt weird but no weakness in her upper or lower extremities. She states the symptoms lasted 15-30 minutes. She denies any chest pain, shortness of breath, abdominal pain, nausea or vomiting. She denies any focal deficits at this time. She sitting up and eating her breakfast. She did have a CT angiogram of the head and neck that reported a greater than 70% stenosis in the right ICA. No acute abnormalities [place] of [place]. Brain CT reported white matter changes that are nonspecific. Patient scheduled for MRI and echocardiogram today. Patient does follow with Dr. Wilson cardiology. She states she is scheduled to undergo angioplasty 11/16/2022. Review of Systems A 14 point review systems was completed all pertinent positives and negatives as stated in the HPI. Past Medical History Past Medical History: Chest Pain / Angina, CVA/TIA, Diabetes Mellitus, Hyperlipidemia, Hypertension, Myocardial Infarction ([place]), Sleep Apnea/CPAP/BIPAP Last Myocardial Infarction Date:: 2006 History of Any Multi-Drug Resistant Organisms: None Reported Past Surgical History: Section, Cholecystectomy, Heart Catheterization With Stent Additional Past Surgical History / Comment(s): 2012 dr wilson repaired/replace a stent Past Anesthesia/Blood Transfusion Reactions: No Reported Reaction Date of Last Stent Placement:: 2012 Past Psychological History: No Psychological Hx Reported Smoking Status: Never smoker Past Alcohol Use History: None Reported Past Drug Use History: None Reported - Past Family History Mother Additional Family Medical History / Comment(s): passed from liver failure. No history of coronary artery disease. Father Additional Family Medical History / Comment(s): passed from kidney failure. No history of coronary artery disease. Sister(s) Family Medical History: No Reported History Brother(s) Family Medical History: No Reported History Daughter(s) Family Medical History: No Reported History Son(s) Additional Family Medical History / Comment(s): both sons have addiction p roblems, depression and anxiety Medications and Allergies Home Medications Medication Instructions Recorded Confirmed Type Citalopram Hydrobromide [CeleXA] 40 mg PO HS 09/19/17 11/06/22 History Meclizine HCl 25 mg PO DAILY 09/19/17 11/06/22 History Metoprolol Tartrate [Lopressor] 25 mg PO HS 09/19/17 11/06/22 History metFORMIN HCL [Glucophage] 1,000 mg PO BID 09/19/17 11/06/22 History Aspirin EC [Ecotrin Low Dose] 81 mg PO DAILY 11/06/22 11/06/22 History Dulaglutide [Trulicity] 3 mg SQ BARNARD 11/06/22 11/06/22 History Insulin Degludec [Tresiba 30 units SQ HS 11/06/22 11/06/22 History Flextouch U-200 Pen] Pantoprazole [Protonix] 40 mg PO DAILY 11/06/22 11/06/22 History Pioglitazone [Actos] 30 mg PO HS 11/06/22 11/06/22 History Acetaminophen Tab [Tylenol] 650 mg PO Q6HR PRN tab 11/07/22 Rx Atorvastatin [Lipitor] 80 mg PO HS 30 Days #30 tab 11/07/22 Rx Ticagrelor [Brilinta] 90 mg PO DAILY 30 Days #30 tab 11/07/22 Rx amLODIPine [Norvasc] 5 mg PO DAILY 30 Days #30 tab 11/07/22 Rx Allergies Allergy/AdvReac Type Severity Reaction Status Date / Time No Known Allergies Allergy Verified 11/06/22 14:01 Surgical - Exam Vital Signs Temp Pulse Resp BP Pulse Ox 97 F L 62 18 187/103 100 11/06/22 12:56 11/06/22 12:56 11/06/22 12:56 11/06/22 12:56 11/06/22 12:56 General appearance: The patient is alert, oriented, appears in no acute distress. HET: Head is normocephalic and atraumatic. Pupils are equal and reactive. Neck: Supple without lymphadenopathy. Trachea midline. No audible carotid bruit. Heart: Regular. Lungs: Equal expansion, normal respiratory effort. Abdomen: Soft, nontender, nondistended. Extremities: Normal skin color and turgor. No cyanosis, rash, ulceration, clubbing, or edema. Radial pulses 2+ bilaterally. Neurological: No focal deficits. Speech is fluent, she is able to follow c ommands appropriately. Strength and sensation are grossly intact. Results - Labs 11/06/22 13:00 11/07/22 06:51 Abnormal Lab Results - Last 24 Hours (Table) 11/06/22 11/06/22 11/06/22 Range/Units 13:00 13:00 15:12 APTT 21.8 L (22.0-30.0) sec Sodium 133 L (137-145) mmol/L Potassium 5.2 H (3.5-5.1) mmol/L Carbon Dioxide (22-30) mmol/L Glucose 73 L (74-99) mg/dL Phosphorus (2.5-4.5) mg/dL Magnesium (1.6-2.3) mg/dL Ur Specific [place] 1.042 H (1.001-1.035) Ur Leukocyte Esterase Moderate H (Negative) Urine WBC 7 H (0-5) /hpf Urine Mucus Rare H (None) /hpf 11/06/22 11/07/22 Range/Units 15:48 06:51 APTT (22.0-30.0) sec Sodium 135 L (137-145) mmol/L Potassium (3.5-5.1) mmol/L Carbon Dioxide 31 H (22-30) mmol/L Glucose (74-99) mg/dL Phosphorus 5.1 H 4.7 H (2.5-4.5) mg/dL Magnesium 1.4 L (1.6-2.3) mg/dL Ur Specific [place] (1.001-1.035) Ur Leukocyte Esterase (Negative) Urine WBC (0-5) /hpf Urine Mucus (None) /hpf Diabetes panel 11/06/22 11/07/22 Range/Units 13:00 06:51 Sodium 133 L 135 L (137-145) mmol/L Potassium 5.2 H 3.9 (3.5-5.1) mmol/L Chloride 98 99 (98-107) mmol/L Carbon Dioxide 24 31 H (22-30) mmol/L BUN 14 12 (7-17) mg/dL Creatinine 0.58 0.59 (0.52-1.04) mg/dL Glucose 73 L 82 (74-99) mg/dL Calcium 9.5 9.1 (8.4-10.2) mg/dL AST 32 (14-36) U/L ALT 20 (4-34) U/L Alkaline Phosphatase 48 (38-126) U/L Total Protein 7.2 (6.3-8.2) g/dL Albumin 4.5 (3.5-5.0) g/dL Thyroid panel 11/06/22 Range/Units 15:48 TSH 2.540 (0.465-4.680) mIU/L Calcium panel 11/06/22 11/06/22 11/07/22 Range/Units 13:00 15:48 06:51 Calcium 9.5 9.1 (8.4-10.2) mg/dL Phosphorus 5.1 H 4.7 H (2.5-4.5) mg/dL Albumin 4.5 (3.5-5.0) g/dL Pituitary panel 11/06/22 11/06/22 11/07/22 Range/Units 13:00 15:48 06:51 Sodium 133 L 135 L (137-145) mmol/L Potassium 5.2 H 3.9 (3.5-5.1) mmol/L Chloride 98 99 (98-107) mmol/L Carbon Dioxide 24 31 H (22-30) mmol/L BUN 14 12 (7-17) mg/dL Creatinine 0.58 0.59 (0.52-1.04) mg/dL Glucose 73 L 82 (74-99) mg/dL Calcium 9.5 9.1 (8.4-10.2) mg/dL TSH 2.540 (0.465-4.680) mIU/L Adrenal panel 11/06/22 11/07/22 Range/Units 13:00 06:51 Sodium 133 L 135 L (137-145) mmol/L Potassium 5.2 H 3.9 (3.5-5.1) mmol/L Chloride 98 99 (98-107) mmol/L Carbon Dioxide 24 31 H (22-30) mmol/L BUN 14 12 (7-17) mg/dL Creatinine 0.58 0.59 (0.52-1.04) mg/dL Glucose 73 L 82 (74-99) mg/dL Calcium 9.5 9.1 (8.4-10.2) mg/dL Total Bilirubin 0.6 (0.2-1.3) mg/dL AST 32 (14-36) U/L ALT 20 (4-34) U/L Alkaline Phosphatase 48 (38-126) U/L Total Protein 7.2 (6.3-8.2) g/dL Albumin 4.5 (3.5-5.0) g/dL - Imaging Comments: Carotid duplex reports mild right and moderate left arthrosclerotic calcification the carotid bulbs with less than 50% stenosis of bilateral internal carotid arteries. Right ICA PSV 85.3, ICA/CCA ratio 1.7. Left ICA PSV 114.5, ICA/CCA ratio 1.9. Assessment and Plan Assessment: 1. Dysarthria, vision changes possible TIA 2. Discordant findings on carotid studies. CT angiogram head and neck reviewed by Dr. Gan, report states right, however it is left ICA stenosis approximately 70%, carotid duplex reporting less than 50% stenosis bilateral ICAs 3. Diabetes mellitus 4. History of coronary artery disease status post cardiac stents on aspirin and Plavix 5. History TIA Plan: 1. Continue symptomatic supportive care 2. Carotid duplex ordered, discordant findings from CT angiogram 3. Recommend PT/OT 4. Continue atorvastatin 80 mg at bedtime, aspirin, agree with changing patient from Plavix to Brilinta 5. Continue with recommendations from neurology 6. Recommend outpatient left ICA intervention. Will need cardiac clearance 7. Cardiology consulted Thank you for this consultation. The impression and plan of care has been dictated as directed. Dr. Gan I performed a history and examination of this patient, discussed the same with the dictator. I agree with the dictator's note ,documented as a scribe. Any additional findings or plans will be noted. Patient scheduled for cardiac cath in next couple of weeks. Would recommend carotid angiogram at that time to determine severity of stenosis on the left. CT scan does demonstrate focal calcific disease and stenosis and therefore I would recommend carotid endarterectomy within the next two weeks after cardiac clearance
[2022-11-07 11:30] LABS: Glucose,Whole Blood 120 mg/dL (70-110)
--- NOTE | 2022-11-07 11:58 | P.CNNES ---
History of Present Illness Consult date: 11/07/22 Requesting physician: Joao Evangelista Reason for Consult: cva History of Present Illness: This is an 67-year-old woman with history of TIA, diabetes mellitus, hypertension, coronary artery disease status post stent, sleep apnea who presented emergency department on 11/06/2022 because of slurred speech and some expressive aphasia 45 Mets prior to arrival to the hospital. It seems her last normal state was at 12:15 PM yesterday. Also is complaining of some vision difficulties and feels like she is having double vision. It seems that the patient had a similar episode about close to a week ago which she had facial droop at that time which resolved. Patient is on home medication of aspirin 81, Plavix 75 and Lipitor 40 mg daily. Patient denies tobacco use. Currently patients symptoms has resolved. Some of the workup during his hospital visit assisted of: Initial serum glucose 73 then the patient had a pCO2 glucose of 82. TSH is 2.540 CT of the head is reported as white matter changes which is nonspecific. Follow-up MRI can be performed as clinically indicated. CT angiography of the head and neck is reported as severe stenosis greater than 72% was within the right internal carotid artery origin. No acute abnormality of [place]. Carotid duplex is reported as mild right and moderate left of his carotid calcification of the carotid bulb with less than 50% stenosis of bilateral internal carotid arteries. EKG is reported as sinus rhythm. Normal EKG. Her initial NIH stroke scale by the ED team is a 2 and 32.4 language as well as dysarthria. Her NIH stroke scale repeated was a 0. Stroke code was activated by the ED team and no IV TPA since symptoms has resolved and the risk outweighed the benefit. ED team spoke with the stroke attending (Dr. Whitaker). He recommended switching Plavix to Brilinta and obtaining MRI Brain. Review of Systems Review of system: The 12 point system was reviewed and apparent positive and negative per HPI. Past Medical History Past Medical History: Chest Pain / Angina, CVA/TIA, Diabetes Mellitus, Hyperlipidemia, Hypertension, Myocardial Infarction (PR), Sleep Apnea/CPAP/BIPAP Last Myocardial Infarction Date:: 2006 History of Any Multi-Drug Resistant Organisms: None Reported Past Surgical History: Section, Cholecystectomy, Heart Catheterization With Stent Additional Past Surgical History / Comment(s): 2012 dr wilson repaired/replace a stent Past Anesthesia/Blood Transfusion Reactions: No Reported Reaction Date of Last Stent Placement:: 2012 Past Psychological History: No Psychological Hx Reported Smoking Status: Never smoker Past Alcohol Use History: None Reported Past Drug Use History: None Reported - Past Family History Mother Additional Family Medical History / Comment(s): passed from liver failure. No history of coronary artery disease. Father Additional Family Medical History / Comment(s): passed from kidney failure. No history of coronary artery disease. Sister(s) Family Medical History: No Reported History Brother(s) Family Medical History: No Reported History Daughter(s) Family Medical History: No Reported History Son(s) Additional Family Medical History / Comment(s): both sons have addiction problems, depression and anxiety Medications and Allergies Home Medications Medication Instructions Recorded Confirmed Type Atorvastatin [Lipitor] 40 mg PO DAILY 09/19/17 11/06/22 History Citalopram Hydrobromide [CeleXA] 40 mg PO HS 09/19/17 11/06/22 History Clopidogrel Bisulfate [Plavix] 75 mg PO HS 09/19/17 11/06/22 History Meclizine HCl 25 mg PO DAILY 09/19/17 11/06/22 History Metoprolol Tartrate [Lopressor] 25 mg PO HS 09/19/17 11/06/22 History metFORMIN HCL [Glucophage] 1,000 mg PO BID 09/19/17 11/06/22 History Aspirin EC [Ecotrin Low Dose] 81 mg PO DAILY 11/06/22 11/06/22 History Dulaglutide [Trulicity] 3 mg SQ [place] 11/06/22 11/06/22 History Insulin Degludec [Tresiba 30 units SQ HS 11/06/22 11/06/22 History Flextouch U-200 Pen] Pantoprazole [Protonix] 40 mg PO DAILY 11/06/22 11/06/22 History Pioglitazone [Actos] 30 mg PO HS 11/06/22 11/06/22 History Allergies Allergy/AdvReac Type Severity Reaction Status Date / Time No Known Allergies Allergy Verified 11/06/22 14:01 Physical Examination - Vital Signs Vital Signs: Vital Signs Temp Pulse Pulse Resp BP BP Pulse Ox 11/07/22 08:00 98.0 F 70 16 147/69 96 11/07/22 04:00 98.5 F 71 18 137/71 96 11/07/22 02:00 73 16 11/07/22 00:00 98.7 F 73 16 128/56 96 11/06/22 20:00 99.4 F 73 16 155/73 100 11/06/22 18:04 98.1 F 75 17 161/78 98 11/06/22 17:40 98.0 F 68 17 149/74 98 11/06/22 17:02 69 18 124/74 99 11/06/22 16:36 82 18 153/61 97 11/06/22 15:16 67 17 161/71 97 11/06/22 14:30 70 17 158/77 96 11/06/22 14:00 70 18 192/93 98 11/06/22 13:30 19 207/108 11/06/22 12:56 97 F L 62 18 187/103 100 Intake and Output 11/06/22 11/07/22 11/07/22 22:59 06:59 14:59 Intake Total 118 Balance 118 Intake: Oral 118 Other: Voiding Method Toilet Toilet # Voids 1 Weight 80.467 kg GENERAL: The patient is lying in bed and is not in acute distress. CHEST: The heart rate is regular rate rhythm. No murmurs to auscultation. LUNG: Clear to auscultation bilaterally no wheezing noted throughout. Not la bored breathing. ABDOMEN/GI: Bowel sounds present in all 4 quadrants. No tenderness to palpation throughout. NEUROLOGICAL: Higher mental function: The patient is awake, alert, oriented to self, place and time. Patient is following commands. No aphasia and no neglect. Cranial nerves: The pupils are round, equal and reactive to light and accommodation. Visual dooley are full to confrontation throughout. Extraocular movement is intact no nystagmus is noted. Facial sensation is normal to touch throughout. The facial strength is normal throughout. Hearing is normal bilaterally to hand rub. Tongue is midline and moved [id number] without any difficulty. No dysarthria is noted. Shoulder shrug is normal bilaterally. Motor: The strength is 5 over 5 throughout. Normal tone and bulk. Cerebellum: Normal finger to nose bilaterally. Sensation: Sensation is normal to touch throughout. Reflexes (right/left): 2+ throughout.. Plantars are mute bilaterally. Results - Laboratory Findings CBC and BMP: 11/06/22 13:00 11/07/22 06:51 Abnormal Lab Findings: Abnormal Labs 11/06/22 11/06/22 11/06/22 13:00 13:00 15:12 APTT 21.8 L Sodium 133 L Potassium 5.2 H Carbon Dioxide Glucose 73 L Phosphorus Magnesium Ur Specific [place] 1.042 H Ur Leukocyte Esterase Moderate H Urine WBC 7 H Urine Mucus Rare H 11/06/22 11/07/22 15:48 06:51 APTT Sodium 135 L Potassium Carbon Dioxide 31 H Glucose Phosphorus 5.1 H 4.7 H Magnesium 1.4 L Ur Specific [place] Ur Leukocyte Esterase Urine WBC Urine Mucus Assessment and Plan Assessment: Transient ischemic attack and patient presented with a dysarthria as well as expressive aphasia. Right ICA stenosis greater than 70% on CTA but a carotid duplex it is reported as less than 50% bilateral ICA History of TIA and had possible TIA symptoms close to a week ago Diabetes mellitus Hypertension History of coronary artery disease status post stent Sleep apnea Plan: Continue aspirin 81 mg daily. Her Plavix was stopped per stroke attending recommendation since failed medication and was started on Brilinta 90mg 1 tab bid. Continue Lipitor 80mg daily at bedtime for secondary stroke prophylaxis MRI the brain, 2-D echo, lipid panel is ordered and pending Vascular surgery team is consulted Continue neuro checks On cardiac monitoring CONSTRUCTION SCHEDULER are consulted. PT and OT is not consulted since patient does not have any focal deficits and is not needed at this time Recommend consideration of event monitor for 30 days and if not done upon discharge, can be considered as outpatient. We'll defer the rest of the medical medical the primary team Patient is on enoxaparin for DVT prophylaxis Upon discharge, recommend patient to follow-up with neurologist as outpatient within 1-2 weeks. The plan is discussed with patient and her who is at bedside. Thank you for the consultation Time with Patient: Greater than 30
--- NOTE | 2022-11-07 15:50 | CA ---
Transthoracic Echo Report Name: Roz Hameed Age: 67 Gender: F : 1955 Exam Date: 11/07/2022 10:18 Exam Location: [facility] Ht (in): 65 Wt (lb): 177 Ordering Physician: Joao Evangelista DO Attending/Referring Phys: MKBeverley, Jean Carlos [employer] Floor Manager Tyra Silva, CHERY Procedure CPT: Indications: Thrombus Cardiac Hx: Technical Quality: Contrast 1: Total Dose (mL): Contrast 2: Total Dose (mL): MEASUREMENTS (Male / Female) Normal Values 2D ECHO LV Diastolic Diameter PLAX 4.4 cm 4.2 - 5.9 / 3.9 - 5.3 cm LV Systolic Diameter PLAX 3.5 cm IVS Diastolic Thickness 1.3 cm 0.6 - 1.0 / 0.6 - 0.9 cm LVPW Diastolic Thickness 1.6 cm 0.6 - 1.0 / 0.6 - 0.9 cm LV Relative Wall Thickness 0.6 RV Internal Dim ED PLAX 3.5 cm LA Systolic Diameter LX 4.0 cm 3.0 - 4.0 / 2.7 - 3.8 cm LA Volume 76.5 cm??? 18 - 58 / 22 - 52 cm??? M-MODE Aortic Root Diameter MM 3.4 cm LA Systolic Diameter MM 3.9 cm LA Ao Ratio MM 1.2 MV E Point Septal Separation 0.2 cm AV Cusp Separation MM 1.6 cm DOPPLER MV Area PHT 3.5 cm??? Mitral E Point Velocity 54.6 cm/s Mitral A Point Velocity 63.5 cm/s Mitral E to A Ratio 0.9 MV Deceleration Time 218.5 ms MV E' Velocity 5.4 cm/s Mitral E to MV E' Ratio 10.1 FINDINGS Left Ventricle Mildly increased septal wall thickness. Left ventricular ejection fraction is estimated at 55%. Left ventricular cavity size normal. Right Ventricle Normal right ventricular size and function. Right ventricular systolic pressure within normal limits. Right Atrium Normal right atrial size. Left Atrium Mildly increased left atrial diameter. Severely increased left atrial volume. Mitral Valve Structurally normal mitral valve. Mild mitral regurgitation. Aortic Valve Trileaflet aortic valve. Tricuspid Valve Structurally normal tricuspid valve. Mild tricuspid regurgitation. Pulmonic Valve Structurally normal pulmonic valve. Pericardium Normal pericardium. Aorta Normal size aortic root and proximal ascending aorta. CONCLUSIONS Normal LV systolic function Previewed by: Dr. Wali Gonzales MD (Electronically Signed) Final Date: 07 November 2022 15:49
--- NOTE | 2022-11-07 16:09 | MR ---
EXAMINATION TYPE: MR brain wo con DATE OF EXAM: 11/07/2022 4:02 PM COMPARISON: CT brain 11/06/2022, CTA head and neck 11/06/2022. CLINICAL INDICATION:Female, 67 years old with history of Neuro deficit, acute, stroke suspected; PHH, TECHNIQUE: Multi planar, multi sequence imaging was performed through the brain without the administr ation of gadolinium. FINDINGS: The gutiérrez-white junctions, ventricular system, and cisterns appear unremarkable. Patchy areas of high T2 signal intensity are seen within the periventricular white matter. Midline structures show no abn ormality. Diffusion-weighted imaging shows no evidence of restricted diffusion. The susceptibility we ighted images do not reveal any evidence for micro-hemorrhage. Mild cerebral volume loss. The bone marrow signal is within normal limits. The paranasal sinuses are unremarkable. The ocular le nses are surgically absent.. Empty sella morphology. IMPRESSION: 1. No evidence of intracranial mass or acute/subacute infarct. 2. Nonspecific white matter changes, likely secondary to small vessel ischemic disease.
[2022-11-07 16:38] LABS: Glucose,Whole Blood 104 mg/dL (70-110)
[2022-11-07] MEDS: MAGNESIUM SULFATE-D5W PMX 1 GM in DEXTROSE/WATER 1 100ML.BAG IVPB SCH ×2 (17:00→17:59)
[2022-11-07] MEDS ORDERED: hydrALAZINE HCL 20 MG/ML 1 ML VIAL IM STA (18:17)
[2022-11-07] MEDS ORDERED: hydrALAZINE HCL 20 MG/ML 1 ML VIAL IVP STA (18:18)
[2022-11-07 18:19] LABS: Chol/HDL Ratio 2.66 Ratio
[2022-11-07 20:11] LABS: Glucose,Whole Blood 165 mg/dL (70-110)
[2022-11-07] MEDS: ATORVASTATIN 80 MG TAB PO SCH (20:48)
[2022-11-07] MEDS: INSULIN DETEMIR (LEVEMIR) 100 UNIT/ML SYR SQ SCH (20:48)
[2022-11-07] MEDS: CITALOPRAM HYDROBROMIDE 20 MG TAB PO SCH (20:48)
[2022-11-07] MEDS: PIOGLITAZONE 30 MG TAB PO SCH (20:48)
[2022-11-07] MEDS ORDERED: METOPROLOL SUCCINATE (ER) 25 MG TAB.ER.24H PO SCH (21:00)
--- NOTE | 2022-11-08 04:11 | P.PN ---
Subjective Progress Note Date: 11/07/22 Patient is an 67-year-old female came in with the complaints of progressive aphasia and speech abnormality 5 minutes before arriving via. symptoms resolved shortly after that. Patient had a recent as such event which the weakness in the right side of the face and patient was started on aspirin and Plavix. Patient had a CT angios the head and neck which showed around 75-80% stenosis on the right internal carotid. Patient denied any other weakness. CT of the head showed some nonspecific white matter changes. Neurology was consulted light panel is being obtained. 11/07/2022 Patient is seen and evaluated in follow-up with neurology following. Patient did have progressive aphasia with speech difficulties that has resolved. Patient was initially on aspirin and Plavix and recommending transitioning to Brilinta. Patient is scheduled for MRI today which is currently pending an unknown of when will be performed. She denies chest pain, shortness of breath, or palpitations. Patient is afebrile. Patient denies any nausea or vomiting and tolerating diet. Patient reports she feels back to baseline with no residual speech difficulties noted. Patient also evaluated by vascular surgery for ICA requiring possible intervention which will be done outpatient. Cardiology was consulted although for cardiac clearance for this outpatient intervention. Patient does follow with Dr. Hsu and this can all be done outpatient as well. Will follow-up with MRI report once available. Blood pressures are elevated and will monitor closely and treat. Review of systems: Constitutional: No reports of fatigue, fever, or chills Cardiovascular: No reports of chest pain or palpitations Respiratory: No reports of shortness of breath or cough GI: No reports of nausea, vomiting, or diarrhea : No reports of dysuria or retention Neurovascular: No reports of weakness or numbness of the reports her speech disturbance and right-sided facial droop has resolved All medications have been reviewed Active Medications Acetaminophen (Acetaminophen Tab 325 Mg Tab) 650 mg PO Q6HR PRN PRN Reason: Fever and/ or Pain Last Admin: 11/06/22 17:16 Dose: 650 mg Amlodipine Besylate (Amlodipine 5 Mg Tab) 5 mg PO DAILY [facility] Aspirin (Aspirin 81 Mg) 81 mg PO DAILY [facility] Last Admin: 11/07/22 09:17 Dose: 81 mg Atorvastatin Calcium (Atorvastatin 80 Mg Tab) [address] [facility] Last Admin: 11/07/22 20:48 Dose: 80 mg Citalopram Hydrobromide (Citalopram Hydrobromide 20 Mg Tab) [address] [facility] Last Admin: 11/07/22 20:48 Dose: 40 mg Enoxaparin Sodium (Enoxaparin 40 Mg/0.4 Ml Syringe) 40 mg SQ DAILY [facility] Last Admin: 11/07/22 09:17 Dose: 40 mg Insulin Detemir (Insulin Detemir (Levemir) 100 Unit/Ml Syr) [address] [facility] Last Admin: 11/07/22 20:48 Dose: 30 unit Meclizine HCl (Meclizine 25 Mg Tab) 25 mg PO DAILY [facility] Last Admin: 11/07/22 09:18 Dose: 25 mg Metformin HCl (Metformin 500 Mg Tab) 1,000 mg PO BID-W/MEALS [facility] Last Admin: 11/07/22 17:00 Dose: 1,000 mg Metoprolol Succinate (Metoprolol Succinate (Er) 25 Mg Tab.Er.24h) [address] [facility] Last Admin: 11/07/22 20:48 Dose: 25 mg Non-Formulary Medication (Dulaglutide [Trulicity]) 3 mg SQ [facility] Pantoprazole Sodium (Pantoprazole 40 Mg Tablet) 40 mg PO AC-BRKFST [facility] Last Admin: 11/07/22 06:27 Dose: Not Given Pioglitazone HCl (Pioglitazone 30 Mg Tab) [address] [facility] Last Admin: 11/07/22 20:48 Dose: Not Given Ticagrelor (Ticagrelor 90 Mg Tab) 90 mg PO DAILY [facility] Last Admin: 11/07/22 09:18 Dose: 90 mg PHYSICAL EXAMINATION: GENERAL: The patient is alert and oriented x3, not in any acute distress. Well developed, well nourished. HEENT: Pupils are round and equally reacting to light. EOMI. No scleral icterus. No conjunctival pallor. Normocephalic, atraumatic. No pharyngeal erythema. No thyromegaly. CARDIOVASCULAR: S1 and S2 present. No murmurs, rubs, or gallops. PULMONARY: Chest is clear to auscultation, no wheezing or crackles. ABDOMEN: Soft, nontender, nondistended, normoactive bowel sounds. No palpable organomegaly. MUSCULOSKELETAL: No joint swelling or deformity. EXTREMITIES: No cyanosis, clubbing, or pedal edema. NEUROLOGICAL: Gross neurological examination did not reveal any focal deficits. Equal strength bilaterally with 5/5 SKIN: No rashes. Assessment: -Possible TIA: Neurology evaluation possible MRI, patient was started on Brillinta and aspirin. Vascular surgery will be canceled it because of carotid occlusion and TIA. -Coronary artery disease patient is scheduled to undergo cardiac catheterization, patient had a stent in the past -Left ICA stenosis, approximately 70% noted on carotid Doppler -Diabetes mellitus -Hyperlipidemia -Hypertension -Sleep apnea -Mild hypovolemic hyponatremia -DVT prophylaxis: Early ambulation Plan: Recommend continue with current medications and management with neurology following. MRI of the brain is scheduled for sometime today and pending, will await report Patient is continued on Brilinta and aspirin along with statin and will continue Blood pressure elevated will give a dose of hydralazine and add Norvasc Recommend close outpatient follow-up with neurology, vascular surgery, and [facility] provider Patient follows with Dr. Hsu and cardiology consulted for clearance for outpatient left ICA stenosis intervention although this can be done outpatient and will be arranged and nursing staff will make appointments for the patient. Awaiting MRI report and recommend monitoring closely overnight with discharge in 24 hours The impression and plan of care has been dictated by Sarah Miramontes, Nurse Practitioner as directed. Dr. Silvino MD I have performed a history and examination and MDM of this patient, discussed the same with the dictator, and agree with the dictator's assessment and plan as written ,documented as a scribe. Based on total visit time, I have performed more than 50% of the visit. Objective - Vital Signs Vital signs: Vital Signs Temp 97.9 F 11/07/22 12:00 Pulse 64 11/07/22 14:00 Resp 16 11/07/22 12:00 BP 147/76 11/07/22 12:00 Pulse Ox 99 11/07/22 12:00 FiO2 Intake & Output 11/06/22 11/07/22 11/07/22 18:59 06:59 18:59 Intake Total 236 Balance 236 Weight 80.467 kg 80.467 kg Intake: Oral 236 Other: Voiding Method Toilet Toilet # Voids 1 - Labs CBC & Chem 7: 11/06/22 13:00 11/07/22 06:51 Labs: Abnormal Lab Results - Last 24 Hours (Table) 11/06/22 11/07/22 11/07/22 Range/Units 15:48 06:51 11:29 Sodium 135 L (137-145) mmol/L Carbon Dioxide 31 H (22-30) mmol/L POC Glucose (mg/dL) 120 H (70-110) mg/dL Phosphorus 5.1 H 4.7 H (2.5-4.5) mg/dL Magnesium 1.4 L (1.6-2.3) mg/dL
[2022-11-08 06:08] LABS: Glucose,Whole Blood 141 mg/dL (70-110)
[2022-11-08] MEDS: PANTOPRAZOLE 40 MG TABLET PO SCH (06:47)
[2022-11-08] MEDS: metFORMIN 500 MG TAB PO SCH (06:47)
[2022-11-08 08:17] VITALS: BP 128/69; PULSE 64; RESP 16; TEMP 98.5
[2022-11-08] MEDS: ASPIRIN 81 MG PO SCH (08:33)
[2022-11-08] MEDS: TICAGRELOR 90 MG TAB PO SCH (08:33)
[2022-11-08] MEDS: MECLIZINE 25 MG TAB PO SCH (08:33)
[2022-11-08] MEDS: ENOXAPARIN 40 MG/0.4 ML SYRINGE SQ SCH (08:33)
[2022-11-08] MEDS ORDERED: amLODIPine 5 MG TAB PO SCH (09:00)
[2022-11-08 09:09] LABS: Magnesium 1.8 mg/dL (1.6-2.3); Phosphorus 3.7 mg/dL (2.5-4.5); Potassium 4.7 mmol/L (3.5-5.1)
--- NOTE | 2022-11-08 10:37 | P.PN ---
Subjective Progress Note Date: 11/08/22 Principal diagnosis: Carotid stenosis Patient is seen and examined today as a follow-up for carotid stenosis. Suspected TIA. She underwent MRI of the brain yesterday evening that showed no evidence of intracranial mass or acute/subacute infarct. Nonspecific white matter changes likely secondary to small vessel ischemic disease. Patient denies any new focal deficits. Objective - Vital Signs Vital signs: Vital Signs Temp 98.5 F 11/08/22 08:00 Pulse 64 11/08/22 08:00 Resp 16 11/08/22 08:00 BP 128/69 11/08/22 08:00 Pulse Ox 99 11/08/22 08:00 FiO2 Intake & Output 11/07/22 11/08/22 11/08/22 18:59 06:59 18:59 Intake Total 236 180 Balance 236 180 Intake: Oral 236 180 Other: Voiding Method Toilet Toilet Toilet # Voids 2 # Bowel Movements 1 - Exam General appearance: The patient is alert, oriented, appears in no acute distress. HET: Head is normocephalic and atraumatic. Pupils are equal and reactive. Neck: Supple without lymphadenopathy. Trachea midline. No audible carotid bruit. Heart: Regular. Lungs: Equal expansion, normal respiratory effort. Abdomen: Soft, nontender, nondistended. Extremities: Normal skin color and turgor. No cyanosis, rash, ulceration, clubbing, or edema. Radial pulses 2+ bilaterally. Neurological: No focal deficits. Speech is fluent, she is able to follow commands appropriately. Strength and sensation are grossly intact. - Labs CBC & Chem 7: 11/06/22 13:00 11/08/22 08:34 Labs: Abnormal Lab Results - Last 24 Hours (Table) 11/07/22 11/07/22 11/08/22 Range/Units 11:29 20:09 06:05 POC Glucose (mg/dL) 120 H 165 H 141 H (70-110) mg/dL Assessment and Plan Assessment: 1. Dysarthria, vision changes possible TIA 2. Left ICA stenosis, approximately 70%. 3. Diabetes mellitus 4. History of coronary artery disease status post cardiac stents on aspirin and Plavix 5. History TIA Plan: 1. Continue symptomatic supportive care 2. Continue atorvastatin 80 mg at bedtime, aspirin, agree with changing patient from Plavix to Brilinta 3. Continue with recommendations from neurology 4. Recommend outpatient left ICA intervention. Will need cardiac clearance 5. Cardiology consulted, await recommendations Thank you for this consultation. Patient is cleared from vascular surgery for discharge. Follow-up with Dr. Gan next week. The impression and plan of care has been dictated as directed. I performed a history and examination of this patient, discussed the same with the dictator. I agree with the dictator's note ,documented as a scribe. Any additional findings or plans will be noted.
--- NOTE | 2022-11-08 13:22 | P.PN ---
Subjective Progress Note Date: 11/08/22 I am following-up seeing the patient and she stated she is doing well and no new neurological deficit and feels at baseline. Objective - Vital Signs Vital signs: Vital Signs Temp 98.5 F 11/08/22 08:00 Pulse 64 11/08/22 08:00 Resp 16 11/08/22 08:00 BP 128/69 11/08/22 08:00 Pulse Ox 99 11/08/22 08:00 FiO2 Intake & Output 11/07/22 11/08/22 11/08/22 18:59 06:59 18:59 Intake Total 236 180 Balance 236 180 Intake: Oral 236 180 Other: Voiding Method Toilet Toilet Toilet # Voids 2 # Bowel Movements 1 - Exam GENERAL: The patient is lying in bed and is not in acute distress. NEUROLOGICAL: Higher mental function: The patient is awake, alert, oriented to self, place and time. Patient is following commands. No aphasia and no neglect. Cranial nerves: The pupils are round, equal and reactive to light and accommodation. Visual dooley are full to confrontation throughout. Extraocular movement is intact no nystagmus is noted. Facial sensation is normal to touch throughout. The facial strength is normal throughout. Hearing is normal bilaterally to hand rub. Tongue is midline and moved [id number] without any difficulty. No dysarthria is noted. Shoulder shrug is normal bilaterally. Motor: The strength is 5 over 5 throughout. Normal tone and bulk. Cerebellum: Normal finger to nose bilaterally. Sensation: Sensation is normal to touch throughout. Reflexes (right/left): 2+ throughout.. Plantars are mute bilaterally. Some of the workup during his hospital visit assisted of: TSH is 2.540 Lipid panel is trying to start 131, cholesterol is 127, LDL is [address] of the head is reported as white matter changes which is nonspecific. Follow-up MRI can be performed as clinically indicated. CT angiography of the head and neck is reported as severe stenosis greater than 72% was within the right internal carotid artery origin. No acute abnormality of [place]. Carotid duplex is reported as mild right and moderate left of his carotid calcification of the carotid bulb with less than 50% stenosis of bilateral internal carotid arteries. EKG is reported as sinus rhythm. Normal EKG. 2-D echo was reported as normal left ventricle systolic function. Left atrium is reported as mildly increased left atrial diameter. Severely increased left atrial volume. MRI of the brain is reported as no evidence of intracranial mass or acute/subacute infarct. Nonspecific white matter changes, likely secondary due to small vessel ischemic disease. I personally reviewed the MRI and agree with report. - Labs CBC & Chem 7: 11/06/22 13:00 11/08/22 08:34 Labs: Abnormal Lab Results - Last 24 Hours (Table) 11/07/22 11/08/22 Range/Units 20:09 06:05 POC Glucose (mg/dL) 165 H 141 H (70-110) mg/dL Assessment and Plan Assessment: Transient ischemic attack and patient presented with a dysarthria as well as expressive aphasia. Right ICA stenosis greater than 70% on CTA but a carotid duplex it is reported as less than 50% bilateral ICA but according to vascular surgery they felt was an anterior and a felt was mostly left ICA stenosis of approximately 70% History of TIA and had possible TIA symptoms close to a week ago Diabetes mellitus Hypertension History of coronary artery disease status post stent Sleep apnea Plan: Continue aspirin 81 mg daily. Her Plavix was stopped per stroke attending recommendation since failed medication and was started on Brilinta 90mg 1 tab bid. Continue Lipitor 80mg daily at bedtime for secondary stroke prophylaxis and helps stabilize carotid plaque. MRI of the brain is reported as no acute or subacute ischemic stroke or mass. I personally reviewed the MRI and I agree with report. Vascular surgery team is consulted. They will have patient follow-up for left ICA stenosis about 70% as outpatient for consideration of intervention as outpatient. Continue neuro checks On cardiac monitoring [facility] are consulted. PT and OT is not consulted since patient does not have any focal deficits and is not needed at this time Recommend consideration of event monitor for 30 days and if not done upon galo dickerson, can be considered as outpatient. We'll defer the rest of the medical medical the primary team Patient is on enoxaparin for DVT prophylaxis Upon discharge, recommend patient to follow-up with neurologist as outpatient within 1-2 weeks. The plan is discussed with patient and her nurse. No additional neurological work-up. Patient is clear for discharge from neurological perspective. Time with Patient: Less than 30
--- NOTE | 2022-11-08 14:48 | P.CRDCN ---
History of Present Illness Consult date: 11/08/22 Reason for Consult (text): CAD, cardiac clearance for left ICA endarterectomy/stent History of present illness: History of present illness: This is a 67-year-old female with past medical history significant for CAD with stenting to proximal OMx2 and most recently in [address] Wilson. She also has diabetes mellitus, hyperlipidemia, hypertension and sleep apnea. We have been asked to see in consultation for preop clearance for possible carotid endarterectomy due to left-sided stenosis and multiple TIAs. Patient states she presented to the hospital due to dizziness confusion and couldn't talk. She states she recently saw Dr. Wilson in the office for Status post abnormal Lexiscan stress test with plan for cardiac catheterization on November 16. Vascular surgery is planning for carotid surgery including possible carotid endarterectomy and would like further evaluation prior to 11/16. Patient is scheduled for discharge home today. EKG reveals sinus mechanism and no acute ST or T-wave abnormalities. Chest x- ray negative for acute cardiopulmonary process. Cardiac enzymes negative 3. BUN and 17 creatinine 0.8. LDL 11, HDL 36, triglycerides 311, total cholesterol 109. Cardiac catheterization 08/2017 revealed stable coronary artery disease with 40% proximal LAD lesion. Both stents in the LAD and circumflex are patent. Moderate disease in the mid LAD that involves the small diagonal branch. Diffuse plaque in the RCA Lexiscan Cardiolite stress test 10/09/2022 revealed stress-induced ischemia in the LAD territory Echocardiogram 11/13/2019 revealed normal EFCurrent cardiac medications includeLopressor 12.5 mg twice a day, Plavix 75 mg daily, Lipitor 40 mg daily and aspirin 325 mg daily. She states she is compliant with her medications. Review Of Systems: At the time of my evaluation: Constitutional: No fever, no chills. No weakness, fatigue or lethargy. EENT: No headache. No dizziness. Lungs: No shortness of breath, cough, no sputum production. No wheezing. Cardiovascular: No chest pain, no lower extremity edema. No palpitations. No paroxysmal nocturnal dyspnea. No orthopnea. No lightheadedness or dizziness. No syncopal episodes. Abdominal: No abdominal pain. No nausea, vomiting. No diarrhea. No constipation. No bloody or tarry stools. Genitourinary: No dysuria.. No urinary retention. Musculoskeletal: No myalgias. No muscle weakness, no frequent falls. No back pain. No neck pain. Integumentary: No wounds. No rash. No unusual bruising. Neurologic: No aphasia. No facial droop. No change in mentation. No head injury. No headache. Psychiatric: No depression. No anxiety. Endocrine: No abnormal blood sugars. Physical examination: Gen: This is a 67-year-old female. She is resting in bed appears to be comfortable and in no acute distress VS: reviewed HEENT: Head is atraumatic, normocephalic. Pupils equal, round. Sclerae is anicteric. NECK: Supple. No JVD. LUNGS: Clear to auscultation. No wheezes or rhonchi. No intercostal retractions. HEART: Regular rate and rhythm. No murmur. ABDOMEN: Soft. No tenderness. EXTREMITIES: No pedal edema. NEUROLOGICAL: Patient is awake, alert and oriented x3. Assessment: Multiple TIAs Coronary artery disease Recent abnormal stress test with plan for cardiac catheterization 11/16 Hyperlipidemia Hypertension Diabetes mellitus Plan: Patient has been discharged home with plan to follow up with Dr. Wilson in the office Thank you kindly for this consultation. Nurse practitioner note has been reviewed, I agree with documented findings and plan of care. Patient was seen and examined. Past Medical History Past Medical History: Chest Pain / Angina, CVA/TIA, Diabetes Mellitus, Hyperlipidemia, Hypertension, Myocardial Infarction (AR), Sleep Apnea/CPAP/BIPAP Last Myocardial Infarction Date:: 2006 History of Any Multi-Drug Resistant Organisms: None Reported Past Surgical History: Section, Cholecystectomy, Heart Catheterization With Stent Additional Past Surgical History / Comment(s): 2012 dr wilson repaired/replace a stent Past Anesthesia/Blood Transfusion Reactions: No Reported Reaction Date of Last Stent Placement:: 2012 Past Psychological History: No Psychological Hx Reported Smoking Status: Never smoker Past Alcohol Use History: None Reported Past Drug Use History: None Reported - Past Family History Mother Additional Family Medical History / Comment(s): passed from liver failure. No history of coronary artery disease. Father Additional Family Medical History / Comment(s): passed from kidney failure. No history of coronary artery disease. Sister(s) Family Medical History: No Reported History Brother(s) Family Medical History: No Reported History Daughter(s) Family Medical History: No Reported History Son(s) Additional Family Medical History / Comment(s): both sons have addiction problems, depression and anxiety Medications and Allergies Home Medications Medication Instructions Recorded Confirmed Type Citalopram Hydrobromide [CeleXA] 40 mg PO HS 09/19/17 11/06/22 History Meclizine HCl 25 mg PO DAILY 09/19/17 11/06/22 History Metoprolol Tartrate [Lopressor] 25 mg PO HS 09/19/17 11/06/22 History metFORMIN HCL [Glucophage] 1,000 mg PO BID 09/19/17 11/06/22 History Aspirin EC [Ecotrin Low Dose] 81 mg PO DAILY 11/06/22 11/06/22 History Dulaglutide [Trulicity] 3 mg SQ BARNARD 11/06/22 11/06/22 History Insulin Degludec [Tresiba 30 units SQ HS 11/06/22 11/06/22 History Flextouch U-200 Pen] Pantoprazole [Protonix] 40 mg PO DAILY 11/06/22 11/06/22 History Pioglitazone [Actos] 30 mg PO HS 11/06/22 11/06/22 History Acetaminophen Tab [Tylenol] 650 mg PO Q6HR PRN tab 11/07/22 Rx Atorvastatin [Lipitor] 80 mg PO HS 30 Days #30 tab 11/07/22 Rx Ticagrelor [Brilinta] 90 mg PO DAILY 30 Days #30 tab 11/07/22 Rx amLODIPine [Norvasc] 5 mg PO DAILY 30 Days #30 tab 11/07/22 Rx Allergies Allergy/AdvReac Type Severity Reaction Status Date / Time No Known Allergies Allergy Verified 11/06/22 14:01 Physical Exam Vitals: Vital Signs Temp Pulse Resp BP Pulse Ox 11/08/22 04:00 98.2 F 67 18 151/70 96 11/08/22 01:54 72 16 11/08/22 00:00 97.8 F 72 16 149/66 98 11/07/22 20:00 97.6 F 69 18 161/73 100 11/07/22 18:03 177/82 11/07/22 17:36 185/79 11/07/22 16:00 97.5 F L 68 16 99 11/07/22 14:00 64 11/07/22 12:00 97.9 F 64 16 147/76 99 11/07/22 08:00 98.0 F 70 16 147/69 96 Intake and Output 11/07/22 11/08/22 11/08/22 22:59 06:59 14:59 Other: Voiding Method Toilet Toilet # Voids 2 # Bowel Movements 1 Results 11/06/22 13:00 11/08/22 08:34 Lipids 11/07/22 Range/Units 06:51 Triglycerides 131.00 (0.00-149.00) mg/dL Cholesterol 127.00 (0.00-200.00) mg/dL HDL Cholesterol 47.80 (40.00-60.00) mg/dL Cholesterol/HDL Ratio 2.66 Ratio Comprehensive Metabolic Panel 11/07/22 Range/Units 06:51 Sodium 135 L (137-145) mmol/L Potassium 3.9 (3.5-5.1) mmol/L Chloride 99 (98-107) mmol/L Carbon Dioxide 31 H (22-30) mmol/L BUN 12 (7-17) mg/dL Creatinine 0.59 (0.52-1.04) mg/dL Glucose 82 (74-99) mg/dL Calcium 9.1 (8.4-10.2) mg/dL Current Medications Generic Name Dose Route Start Last Admin Trade Name Freq PRN Reason Stop Dose Admin Acetaminophen 650 mg 11/06/22 16:41 11/06/22 17:16 Acetaminophen Tab 325 Mg Tab PO 650 mg Q6HR PRN Administration Fever and/ or Pain Amlodipine Besylate 5 mg 11/08/22 09:00 Amlodipine 5 Mg Tab PO DAILY [facility] Aspirin 81 mg 11/07/22 09:00 11/07/22 09:17 Aspirin 81 Mg PO 81 mg DAILY AISLINN Administration Atorvastatin Calcium 80 mg 11/06/22 21:00 11/07/22 20:48 Atorvastatin 80 Mg Tab PO 80 mg HS AISLINN Administration Citalopram Hydrobromide 40 mg 11/06/22 21:00 11/07/22 20:48 Citalopram Hydrobromide 20 Mg Tab PO 40 mg HS AISLINN Administration Enoxaparin Sodium 40 mg 11/06/22 15:45 11/07/22 09:17 Enoxaparin 40 Mg/0.4 Ml Syringe SQ 40 mg DAILY AISLINN Administration Insulin Detemir 30 unit 11/06/22 21:00 11/07/22 20:48 Insulin Detemir (Levemir) 100 Unit/Ml Syr SQ 30 unit HS AISLINN Administration Meclizine HCl 25 mg 11/07/22 09:00 11/07/22 09:18 Meclizine 25 Mg Tab PO 25 mg DAILY AISLINN Administration Metformin HCl 1,000 mg 11/06/22 17:30 11/08/22 06:47 Metformin 500 Mg Tab PO 1,000 mg BID-W/MEALS AISLINN Administration Metoprolol Succinate 25 mg 11/07/22 21:00 11/07/22 20:48 Metoprolol Succinate (Er) 25 Mg Tab.Er.24h PO 25 mg HS AISLINN Administration Non-Formulary Medication 3 mg 11/12/22 09:00 Dulaglutide [Trulicity] SQ BARNARD AISLINN Pantoprazole Sodium 40 mg 11/07/22 07:30 11/08/22 06:47 Pantoprazole 40 Mg Tablet PO 40 mg [id number]-[id number] AISLINN Administration Pioglitazone HCl 30 mg 11/06/22 21:00 11/07/22 20:48 Pioglitazone 30 Mg Tab PO Not Given HS AISLINN Ticagrelor 90 mg 11/07/22 09:00 11/07/22 09:18 Ticagrelor 90 Mg Tab PO 90 mg DAILY AISLINN Administration Intake and Output 11/07/22 11/08/22 11/08/22 22:59 06:59 14:59 Other: Voiding Method Toilet Toilet # Voids 2 # Bowel Movements 1 11/06/22 13:00 11/07/22 06:51
--- NOTE | 2022-11-10 08:44 | CDI ---
Documentation Clarification Form Date: 11/10/22 From: Roxanne Torres Admit Date: 11/06/2022 3:31:00 PM Patient Name: Roz Hameed Visit Number: [id number] Discharge Date: 11/08/2022 11:23:00 AM ATTENTION: The Clinical Documentation Specialists (CDI) and [facility] Coding Staff appreciate your assistance in clarifying documentation. Please respond to the clarification below the line at the bottom and electronically sign. The CDI & [facility] Coding staff will review the response and follow-up if needed. Please note: Queries are made part of the Legal Health Record. If you have any questions, please contact the author of this message via ITS. Dr. David Dubois. TIA is documented in the H&P, consults and progress notes. Additional clarification regarding the etiology of the TIA is requested. Patient history/risk factors: Hx of TIA, CAD, DM, HLD, HTN, sleep apnea Clinical indicators: Presents with progressive aphasia, dysarthria and diplopia. 11/07 CT head: No evidence ofintracranialmassor acute/subacuteinfarct. Nonspecific white matter changes, likely secondary to small vesselischemic disease. 11/07 AGHEADNECK: Severestenosisgreater than 72% within the right internal carotid artery origin. No acuteabnormalitycircle of [place]. 11/07 Carotid US: Mild right and moderate leftatheroscleroticcalcificationof the carotid bulbs with less than 50%stenosisof the bilateral internal carotid arteries. 11/07 Echo: Normal LV systolic function Treatment: Neuro checks, continue Atorvastatin 80 mg at bedtime, aspirin, change Plavix to Brilinta. Recommend OP left ICA intervention. Neuro Consult: Transient ischemic attackand patient presented with adysarthriaas well as expressiveaphasia. Right ICAstenosisgreater than 70% onCTAbut a carotid duplex it is reported as less than 50% bilateral ICA but according to vascular surgery they felt was an anterior and a felt was mostly left ICAstenosisof approximately 70%. Transient ischemic attackand patient presented with adysarthriaas well as expressiveaphasia. Right ICAstenosisgreater than 70% onCTAbut a carotid duplex it is reported as less than 50% bilateral ICA but according to vascular surgery they felt was n anterior and a felt was mostly left ICAstenosisof approximately 70% Please clarify the etiology of the TIA, if known: [ ] Carotid Sinus Syncope [ ] Bilateral Carotid Stenosis [ ] Other (please specify): [ x] Etiology unknown or Unable to determine MTDD
--- NOTE | 2022-11-10 20:46 | P.DS ---
Providers Date of admission: 11/06/22 15:31 Expected date of discharge: 11/08/22 Attending physician: David Dubois Consults: 11/06/22 15:32 Consult Physician Routine Consulting Provider: Rich Sifuentes Consult Reason/Comments: cva Do you want consulting provider notified?: Yes 11/06/22 15:33 Consult Physician Routine Consulting Provider: Rachna Yip Consult Reason/Comments: carotid stenosis Do you want consulting provider notified?: Yes 11/07/22 12:25 Consult Physician Routine Consulting Provider: Danisha Hsu Consult Reason/Comments: CAD, cardiac clearance for left ICA endarterectomy/stent Do you want consulting provider notified?: Yes Primary care physician: [facility] Course: Final diagnosis -Aphasia with right facial droop, Possible TIA -Coronary artery disease, stent in the past -Left ICA stenosis, approximately 70% noted on carotid Doppler -Diabetes mellitus -Hyperlipidemia -Hypertension -Sleep apnea -Mild hypovolemic hyponatremia -DVT prophylaxis Discharge disposition Patient is being discharged in a stable condition with guarded prognosis to home. Patient will follow-up with Dr. Hartley in the outpatient setting upon discharge. Patient is to follow-up with neurology along with vascular surgery and cardiology as scheduled. Patient to follow-up for possible left ICA stenosis intervention with vascular surgery after obtaining cardiac clearance with Dr. Hsu. Patient will continue on dual Brilinta and aspirin on discharge. Total time taken is greater than 35 minutes. Hospital course This is a 67-year-old female who was recently admitted with aphasia and right- sided facial droop with concerns of TIA. Patient has had TIA versus CVA in the past and was continued on aspirin and Plavix. Per at the bedside patient did have a similar episode approximately 3 weeks ago although never came to the hospital or followed up with as the symptoms resolved. Patient is a diabetic along with hypertension and found to have significant left ICA stenosis with vascular surgery on consult recommending outpatient follow-up for possible ICA intervention after cardiac clearance. Patient follows with Dr. Hsu and will follow-up this week. MRI was negative for any acute process and patient has been cleared by neurology for close outpatient follow-up with neurology. Currently no reports of chest pain, shortness of breath, or palpitations. Patient is afebrile. No reports of nausea or vomiting and patient is tolerating diet. Patient will be discharged home today. Guarded prognosis Physical exam: Gen: This is a 67-year-old female who is awake, alert and oriented 3, well- developed, well-nourished HEENT: Head is atraumatic, normocephalic. Pupils equal, round. Sclerae is anicteric. NECK: Supple. No JVD. No lymphadenopathy. No thyromegaly. LUNGS: Clear to auscultation. No wheezes or rhonchi. No intercostal retractions. HEART: Regular rate and rhythm. No murmur. ABDOMEN: Soft. Bowel sounds are present. No masses. No tenderness. EXTREMITIES: No pedal edema. No calf tenderness. NEUROLOGICAL: Patient is awake, alert and oriented x3. Cranial nerves 2 through 12 are grossly intact. Please refer to medication reconciliation sheet for a list of medications. The impression and plan of care has been dictated by Sarah Miramontes, Nurse Practitioner as directed. Dr. Silvino MD I have performed a history and examination and MDM of this patient, discussed the same with the dictator, and agree with the dictator's assessment and plan as written ,documented as a scribe. Based on total visit time, I have performed more than 50% of the visit. Patient Condition at Discharge: Fair Plan - Discharge Summary Discharge Rx Participant: Yes New Discharge Prescriptions: New Ticagrelor [Brilinta] 90 mg PO DAILY 30 Days #30 tab Atorvastatin [Lipitor] 80 mg PO HS 30 Days #30 tab Acetaminophen Tab [Tylenol] 650 mg PO Q6HR PRN tab PRN Reason: Fever And/ Or Pain amLODIPine [Norvasc] 5 mg PO DAILY 30 Days #30 tab Continue metFORMIN HCL [Glucophage] 1,000 mg PO BID Metoprolol Tartrate [Lopressor] 25 mg PO HS Citalopram Hydrobromide [CeleXA] 40 mg PO HS Meclizine HCl 25 mg PO DAILY Pantoprazole [Protonix] 40 mg PO DAILY Pioglitazone [Actos] 30 mg PO HS Dulaglutide [Trulicity] 3 mg SQ BARNARD Insulin Degludec [Tresiba Flextouch U-200 Pen] 30 units SQ HS Aspirin EC [Ecotrin Low Dose] 81 mg PO DAILY Discontinued Clopidogrel Bisulfate [Plavix] 75 mg PO HS Atorvastatin [Lipitor] 40 mg PO DAILY Discharge Medication List Citalopram Hydrobromide [CeleXA] 40 mg PO HS 09/19/17 [History] Meclizine HCl 25 mg PO DAILY 09/19/17 [History] Metoprolol Tartrate [Lopressor] 25 mg PO HS 09/19/17 [History] metFORMIN HCL [Glucophage] 1,000 mg PO BID 09/19/17 [History] Aspirin EC [Ecotrin Low Dose] 81 mg PO DAILY 11/06/22 [History] Dulaglutide [Trulicity] 3 mg SQ BARNARD 11/06/22 [History] Insulin Degludec [Tresiba Flextouch U-200 Pen] 30 units SQ HS 11/06/22 [History] Pantoprazole [Protonix] 40 mg PO DAILY 11/06/22 [History] Pioglitazone [Actos] 30 mg PO HS 11/06/22 [History] Acetaminophen Tab [Tylenol] 650 mg PO Q6HR PRN tab 11/07/22 [Rx] Atorvastatin [Lipitor] 80 mg PO HS 30 Days #30 tab 11/07/22 [Rx] Ticagrelor [Brilinta] 90 mg PO DAILY 30 Days #30 tab 11/07/22 [Rx] amLODIPine [Norvasc] 5 mg PO DAILY 30 Days #30 tab 11/07/22 [Rx] Follow up Appointment(s)/Referral(s): Danisha Hsu MD [STAFF PHYSICIAN] - 11/14/22 4:15 pm Diomedes Gan DO [STAFF PHYSICIAN] - 11/14/22 3:00 pm Varun Hartley MD [Primary Care Provider] - 11/14/22 1:00 pm Micah Flowers MD [Medical Doctor] - 1 Week (Office will call you with appointment date and time) Ambulatory/Diagnostic Orders: Basic Metabolic Panel [LAB.AMB] Time Frame: 3 Days, Location: None Selected Activity/Diet/Wound Care/Special Instructions: Activity Limited until follow-up Follow-up primary care provider on discharge Follow-up vascular surgery outpatient Follow-up neurology outpatient Continue taking medications as prescribed Continue heart healthy diabetic diet Continue to monitor Accu-Cheks before meals and at bedtime and keep a diary of all readings for follow-up Repeat BMP and magnesium level in the next 2-3 days Starting blood pressure medication and recommend monitoring blood pressure and keeping a diary of daily readings for primary follow-up Discharge Disposition: HOME SELF-CARE
[2022-11-12] MEDS ORDERED: NON FORMULARY DRUG (Dulaglutide [Trulicity] 3 MG/0.5 ML Each) SQ SCH (09:00)
== END 2022-11-08 11:23 | disposition home or self-care (01) | DRG 69 ==
LOC: EC 12:52 → 3SCARD 15:31
PROVIDERS: ADMIT Internal Medicine; ATTEND Internal Medicine
DX: G45.9 Transient cerebral ischemic attack, unspecified (principal); E87.1 Hypo-osmolality and hyponatremia; R47.01 Aphasia; I65.23 Occlusion and stenosis of bilateral carotid arteries; E86.1 Hypovolemia; Z86.74 Personal history of sudden cardiac arrest; E11.9 Type 2 diabetes mellitus without complications; Z79.4 Long term (current) use of insulin; Z28.310 Unvaccinated for COVID-19; I10 Essential (primary) hypertension; I25.2 Old myocardial infarction; E78.5 Hyperlipidemia, unspecified; I25.10 Atherosclerotic heart disease of native coronary artery without angina pectoris; G47.30 Sleep apnea, unspecified; Z79.82 Long term (current) use of aspirin; Z79.02 Long term (current) use of antithrombotics/antiplatelets; Z79.84 Long term (current) use of oral hypoglycemic drugs; Z79.85 Long-term (current) use of injectable non-insulin antidiabetic drugs; Z79.899 Other long term (current) drug therapy; Z86.73 Personal history of transient ischemic attack (TIA), and cerebral infarction without residual deficits; Z95.5 Presence of coronary angioplasty implant and graft
CPT/HCPCS: 36415; 70450; 70496; 70498; 70551; 71046; 80048; 80053; 80061; 81001; 83036; 83735; 84100; 84132; 84443; 84484; 85025; 85610; 85730; 93005; 93306; 93880; 96372; 96374; 96375; 99291

== ENCOUNTER → 2022-11-13 | Outpatient (CLI) | payer MEDICARE ==
[2022-11-13 14:48] LABS: ALT 19 U/L (8-44); AST 18 U/L (13-35); Albumin 4.8 g/dL (3.8-4.9); Albumin/Globulin Ratio 1.84 (1.60-3.17); Alkaline Phosphatase 54 U/L (41-126); BUN/Creat Ratio 14.77 Ratio (12.00-20.00); Blood Urea Nitrogen 10.1 mg/dL (9.0-27.0); Calcium 10.4 mg/dL (8.7-10.3); Carbon Dioxide 27.2 mmol/L (20.0-27.5); Chloride 96 mmol/L (96-109); Chol/HDL Ratio 2.42 Ratio; Globulin 2.6 g/dL (1.6-3.3); Glucose 150 mg/dL (70-110); LDL Cholesterol,Calculated 46.6 mg/dL (0.0-131.0); Non-African American GFR(CKD) 89.7 (60.0-200.0); Sodium 134 mmol/L (135-145); Total Protein 7.4 g/dL (6.2-8.2)
== END | disposition home or self-care (01) ==
LOC: LABWHC1 08:55
PROVIDERS: ATTEND Internal Medicine Interventional Cardiology
DX: I10 Essential (primary) hypertension (principal); E11.65 Type 2 diabetes mellitus with hyperglycemia; E78.2 Mixed hyperlipidemia; E83.42 Hypomagnesemia; E87.5 Hyperkalemia
CPT/HCPCS: 36415; 80053; 80061; 83036

== ENCOUNTER → 2022-11-16 | Day surgery (SDC) | payer MEDICARE ==
[2022-11-13 14:39] VITALS: BMI 27.8
[~2022-11-16] MED LIST: ALPRAZolam 0.25 MG TAB PO PRN; ALPRAZolam 0.5 MG TAB PO PRN; ASPIRIN 325 MG TAB PO STA; ASPIRIN 81 MG PO SCH; ATORVASTATIN 80 MG TAB PO SCH; ATORVASTATIN 80 MG TAB PO STA; ATROPINE SULFATE 0.1 MG/ML 10ML SYRINGE IV PRN; HEPARIN SODIUM 1,000 UN/ML (10ML VL) IV ONE; HEPARIN SODIUM 1,000 UN/ML (10ML VL) ONE; HEPARIN SODIUM,PORCINE 10,000 UNIT in SODIUM CHLORIDE 0.9% 1,000 ML IRRIGATION PRN; HEPARIN SODIUM,PORCINE 2,500 UNIT in SODIUM CHLORIDE 0.9% 250 ML IRRIGATION PRN; INSULIN ASPART (NovoLOG) 100 UNIT/ML VIAL SQ ONE; IOPAMIDOL-300 50ML BTL INJ ONE; IOPAMIDOL-370 100ML BTL INJ ONE; IOPAMIDOL-370 125ML BTL INTRATHECA ONE; LIDOCAINE 1% INJ 10MG/ML (5 ML VIAL-PF) SQ ONE; MAG HYDROX/AL HYDROX/SIMETH 30 ML CUP PO PRN; METOPROLOL TARTRATE 25 MG TAB PO SCH; NITROGLYCERIN SL TABS 0.4 MG TAB SUBLINGUAL PRN; NON FORMULARY DRUG (Citalopram Hydrobromide [Celexa] 40 MG Tablet) PO SCH; NON FORMULARY DRUG (Dulaglutide [Trulicity] 3 MG/0.5 ML Each) SQ SCH; PANTOPRAZOLE 40 MG TABLET PO SCH; PIOGLITAZONE 30 MG TAB PO SCH; RX INFO: IV CONTRAST WAS GIVEN 1 EACH MISC MISCELLANE PRN; SODIUM CHLORIDE 0.9% 1,000 ML in EMPTY BAG 1 BAG IV SCH; TICAGRELOR 90 MG TAB ONE; TICAGRELOR 90 MG TAB PO ONE; TICAGRELOR 90 MG TAB PO SCH; VERAPAMIL 2.5 MG/ML 2 ML AMP ONE; VERAPAMIL SYRINGE (5 MG/10 ML) INTRAARTER ONE; ZOLPIDEM 5 MG TAB PO PRN; amLODIPine 5 MG TAB PO SCH; fentaNYL (PF) 50 MCG/ML 2 ML AMP IV ONE; fentaNYL (PF) 50 MCG/ML 2 ML AMP ONE
[2022-11-16] MEDS: SODIUM CHLORIDE 0.9% 1,000 ML in EMPTY BAG 1 BAG IV SCH ×2 (08:15→08:30)
[2022-11-16 08:37] LABS: Glucose,Whole Blood 202 mg/dL (70-110)
[2022-11-16 08:59] VITALS: RESP 16; TEMP 98
[2022-11-16] MEDS: NITROGLYCERIN 1000MCG/10ML SYRINGE INTRACORON ONE ×2 (09:50→10:02)
--- NOTE | 2022-11-16 10:31 | P.CARDCATH ---
Date of Procedure: 11/16/22 Description of Procedure: Cardiac Catheterization: The patient is a 67-year-old female with a known history of CAD, post stenting of the LAD and circumflex who has been complaining of exertional chest discomfort and had an abnormal MPI. Recommendations were made regarding cardiac catheterization, the risks and the complications were discussed with the patient who is in full understanding and agreement. 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 Using Xylocaine Anesthesia and Seldinger technique, a 6-Ugandan sheath was introduced in the right radial artery . Subsequently, selective coronary angiography was performed using a 5-Ugandan 3.5 bend Jennifer catheter. Multiple views of the coronary artery including hemiaxial views were obtained. The 5-Ugandan Pigtail catheter was used to cross the aortic valve and LVEDP was calculated. After removing the catheters a 6-Ugandan EBU 3.75 guiding catheter was introduced and this system and after cannulating the left main a 0.014 BMW J-wire was positioned in the distal LAD subsequently a 2.5 x 12 mm Treck balloon was advanced into inflation at 8 natalio were done, after removing the balloon a 2.75 x 23 mm Xience bill point stent was deployed at 14 natalio, after removing the balloon a 2.5 x 15 mm Xience bill point was deployed distal to the first one at 14 natalio, the balloon was drawn in the overlap segment and one inflation at 16 natalio was done. After removing the wire images were obtained and revealed stable successful stenting. Following that, catheter was removed. Images of her carotid arteries were obtained by Dr. Murillo . There was no immediate complication. Patient was returned to room in stable condition. Of note, the patient received a total of 6000 units of intravenous heparin as well as intra- arterial verapamil. She was continued on Brilinta, her ACT was followed. She had chest discomfort and mild EKG changes that resolved at the end of the procedure. Findings: Left main: This is a large-size vessel, bifurcating into LAD and left circumflex, left main has no high-grade stenosis. LAD: This is a large-size vessel, reaching to the apex, the stented segment proximally is patent with mild intimal disease in the midsegment there is an eccentric 99% stenosis, the rest of the vessel has no high-grade stenosis. Left circumflex: This is a codominant vessel evening rise to a large obtuse marginal branch, the proximal segment of the obtuse marginal branch is stented and has 10-20% plaque. There is a 50-60% stenosis in the AV groove left circumflex at the bifurcation OM. RCA: This is a codominant vessel, moderate in caliber, approximately has a 50- 60% plaque the rest of the vessel has no high-grade stenosis Left Ventriculogram: Not performed Hemodynamics: There was no gradient across the aortic valve, LVEDP was 14-16 mmHg Conclusion: 1. Critical stenosis in the mid LAD 2. Patent stent in the proximal LAD and OM1 3. Mild to moderate disease in the mid RCA 4. Successful stenting of the mid LAD with reduction of stenosis from 99% to 0% Recommendations: The patient will continue on aspirin and Brilinta for 6 months without any instruction in addition to aggressive coronary risk modification. The findings and the recommendations were discussed with the patient and the family and they were in full understanding and agreement. Duration of sedation is 47 minutes.
--- NOTE | 2022-11-16 11:08 | IR ---
EXAMINATION TYPE: IR angio carotid cerv BILAT DATE OF EXAM: 11/16/2022 CLINICAL HISTORY: TIA TECHNIQUE: Fluoroscopy. COMPARISON: None. FINDINGS: Fluoroscopic guidance was provided during procedure performed by the referring physician. A total of 20.7 minutes of fluoroscopic time was utilized during the procedure. Please see separate r eport for procedural details. IMPRESSION: As Above.
[2022-11-16 17:15] VITALS: BP 155/71; PULSE 70
--- NOTE | 2022-11-16 21:11 | P.PCN ---
Description of Procedure: PROCEDURES PERFORMED: Bilateral selective carotid angiography INDICATION: Carotid artery stenosis HISTORY: Patient is a pleasant 67 year old female with history of recent stroke, TIA with discrepancy between carotid ultrasound and CTA carotid. Patient being evaluated for CAD and planned for left heart catheterization by Dr. Hsu with additional carotid angiogram by myself to further assess carotid stenosis. CONSENT:I have discussed the risks, benefits and alternative therapies for the above-mentioned procedure and for both sedation/analgesia as well as necessary blood product administration, if indicated, as they pertain to this patient. The patient has indicated understanding and acceptance of the risks and procedu res discussed. PROCEDURE: After the risks, benefits and alternatives of the above mentioned procedure explained in detail with the patient, informed consent was obtained. Patient had already been taken to the catheterization lab and prepped and draped in usual fashion. A 6-Maltese sheath had already been placed in the right radial artery. Left heart cath and stenting had already been performed. Left carotid angiogram was performed with a 6Fr VTK catheter in numerous views. Next right carotid angiogram was performed with a 6FR FR5 in various views. The catheters were removed. A TR band was applied, the sheath removed and hemostasis achieved. The patient tolerated the procedure well. Patient was transported back to the post catheterization holding area in stable condition. Conscious Sedation: Patient was monitored under the direct supervision of vision of myself for conscious sedation using Versed and fentanyl for a total duration of 18 minutes ASCENDING AORTA: There is no significant aneurysm or stenosis. Right common carotid: No significant stenosis Right internal carotid artery: No significant stenosis Left common carotid: no significant stenosis Left internal carotid artery: 30% left internal carotid artery stenosis FINAL IMPRESSION: 1. No significant stenosis of the TOM and 30% left internal carotid artery stenosis PLAN: 1. Aggressive risk factor modification per most recent ACC/AHA guidelines.
== END | disposition home or self-care (01) ==
LOC: CATHCVL 07:58
PROVIDERS: ATTEND Internal Medicine Interventional Cardiology
DX: I25.118 Atherosclerotic heart disease of native coronary artery with other forms of angina pectoris (principal); Z79.82 Long term (current) use of aspirin; Z79.01 Long term (current) use of anticoagulants; E78.2 Mixed hyperlipidemia; I10 Essential (primary) hypertension; E11.9 Type 2 diabetes mellitus without complications; Z87.891 Personal history of nicotine dependence; I65.29 Occlusion and stenosis of unspecified carotid artery
CPT/HCPCS: 93458; 36222; C9600; C1769 ×3; C1887; C1894; C1725; C1874 ×2; J2001; J3010; J1644; Q9967 ×3

== ENCOUNTER → 2023-01-03 | Outpatient (CLI) | payer MEDICARE ==
[2023-01-03 16:40] LABS: ALT 18 U/L (8-44); AST 24 U/L (13-35); African American GFR (CKD) 90.8 (60.0-200.0); Albumin 4.1 g/dL (3.8-4.9); Albumin/Globulin Ratio 1.73 (1.60-3.17); Alkaline Phosphatase 58 U/L (41-126); BUN/Creat Ratio 14.91 Ratio (12.00-20.00); Blood Urea Nitrogen 11.6 mg/dL (9.0-27.0); Calcium 9.1 mg/dL (8.7-10.3); Carbon Dioxide 28.4 mmol/L (20.0-27.5); Chloride 96 mmol/L (96-109); Chol/HDL Ratio 2.15 Ratio; Globulin 2.4 g/dL (1.6-3.3); Glucose 139 mg/dL (70-110); LDL Cholesterol,Calculated 21.5 mg/dL (0.0-131.0); Non-African American GFR(CKD) 78.4 (60.0-200.0); Potassium 4.7 mmol/L (3.5-5.5); Sodium 135 mmol/L (135-145); Total Protein 6.4 g/dL (6.2-8.2)
== END | disposition home or self-care (01) ==
LOC: LABWHC1 08:41
PROVIDERS: ATTEND Internal Medicine Interventional Cardiology
DX: E78.2 Mixed hyperlipidemia (principal)
CPT/HCPCS: 36415; 80053; 80061

== ENCOUNTER → 2023-03-10 | Outpatient (CLI) | payer MEDICARE ==
[2023-03-10 13:34] LABS: ALT 12 U/L (8-44); AST 14 U/L (13-35); African American GFR (CKD) 87.8 (60.0-200.0); Albumin 4.1 g/dL (3.8-4.9); Albumin/Globulin Ratio 1.86 (1.60-3.17); Alkaline Phosphatase 63 U/L (41-126); BUN/Creat Ratio 20.13 Ratio (12.00-20.00); Blood Urea Nitrogen 16.1 mg/dL (9.0-27.0); Calcium 10.3 mg/dL (8.7-10.3); Carbon Dioxide 27.1 mmol/L (20.0-27.5); Chloride 102 mmol/L (96-109); Chol/HDL Ratio 2.68 Ratio; Globulin 2.2 g/dL (1.6-3.3); Glucose 186 mg/dL (70-110); LDL Cholesterol,Calculated 55.2 mg/dL (0.0-131.0); Non-African American GFR(CKD) 75.8 (60.0-200.0); Potassium 4.6 mmol/L (3.5-5.5); Sodium 139 mmol/L (135-145); Total Protein 6.3 g/dL (6.2-8.2)
== END | disposition home or self-care (01) ==
LOC: LABWHC1 08:56
PROVIDERS: ATTEND Internal Medicine Interventional Cardiology
DX: E78.2 Mixed hyperlipidemia (principal)
CPT/HCPCS: 36415; 80053; 80061

== ENCOUNTER → 2023-06-01 | Outpatient (CLI) | payer MEDICARE ==
--- NOTE | 2023-06-03 15:13 | MR ---
EXAMINATION TYPE: MR lumbar spine wo con DATE OF EXAM: 06/01/2023 7:43 AM COMPARISON: None. 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 IV Contrast: cc . None. FINDINGS: Alignment: The lumbar vertebral bodies have preserved heights with grade 1 anterolisthesis of L4 on L 5. Cord: The conus medullaris and the distal spinal cord appear unremarkable with regards to their signa l intensity and morphology. Bones/Discs: Multilevel degeneration changes with facet joint arthropathy, osteophytes, disc space na rrowing and Schmorl's nodes. No abnormal bony edema on inversion recovery sequences. Multilevel disc desiccation is present. T12-L1: No evidence of significant spinal canal stenosis or neural foraminal stenosis. L1-L2: Central disc extrusion with 4 mm inferior migration. No significant small canal or neural fora jonatan stenosis. L2-L3: Central disc extrusion with 7 mm of superior migration. No significant spinal canal stenosis. No significant neural foraminal stenosis. L3-L4: No evidence of significant spinal canal stenosis. Facet joint arthropathy mild bilateral neura l foraminal stenosis. L4-L5: Disc uncovering from grade 1 anterolisthesis and facet joint arthropathy with mild spinal son l stenosis and mild to moderate bilateral neural foraminal stenosis. L5-S1: The disc is rounded posterior morphology without significant spinal canal stenosis. Facet join t arthropathy with mild to moderate bilateral neural foraminal stenosis. T11-T12: central disc extrusion with 7 mm inferior migration. No significant spinal canal stenosis or neural foraminal stenosis. This is in the [id number] on sagittal imaging only. T10-T11 facet join t arthropathy with mild left neural foraminal stenosis partially visualized. Other findings: None. IMPRESSION: 1. L2-L3 central disc extrusion with 7 mm superior migration. No significant spinal canal neural for aminal stenosis. 2. L1-L2 central disc extrusion with 4 mm inferior migration. No significant spinal canal neural for aminal stenosis. 3. T11-T12 central disc extrusion with 7 mm inferior migration. No significant spinal canal or neura l foraminal stenosis. 4. No evidence for significant neural foraminal or spinal canal stenosis. 5. Grade 1 anterolisthesis of L4 on L5.
== END | disposition home or self-care (01) ==
LOC: RADMRIMAIN 06:59
PROVIDERS: ATTEND Physical Medicine & Rehabilitation
DX: M47.817 Spondylosis without myelopathy or radiculopathy, lumbosacral region (principal); M51.36 Other intervertebral disc degeneration, lumbar region; M43.16 Spondylolisthesis, lumbar region
CPT/HCPCS: 72148

== ENCOUNTER 2024-01-12 20:45 | Inpatient (IN) | payer MEDICARE ==
[2024-01-12 21:37] LABS: Basophils # (A) 0.1 k/uL (0-0.2); Basophils % (A) 1 %; Eosinophils # (A) 0.2 k/uL (0-0.7); Eosinophils % (A) 1 %; HCT 38.9 % (34.0-46.0); HGB 12.4 gm/dL (11.4-16.0); Hypochromasia Slight; Lymphocytes # (A) 3.9 k/uL (1.0-4.8); Lymphocytes % (A) 36 %; MCHC 31.8 g/dL (31.0-37.0); Mean Platelet Volume 7.7; Monocytes # (A) 0.5 k/uL (0-1.0); Monocytes % (A) 5 %; Neutrophils # (A) 5.6 k/uL (1.3-7.7); Neutrophils % (A) 53 %; Platelet Count 328 k/uL (150-450); RBC 4.57 m/uL (3.80-5.40); RDW 15.3 % (11.5-15.5); WBC 10.7 k/uL (3.8-10.6)
--- NOTE | 2024-01-12 21:44 | CT ---
EXAMINATION TYPE: CODE STROKE: CT brain wo contr CT DLP: 1176.6 mGycm, Automated exposure control for dose reduction was used. DATE OF EXAM: 01/12/2024 9:29 PM COMPARISON: CT head 11/06/2022. CLINICAL INDICATION:Female, 68 years old with history of Neuro deficit, acute, stroke suspected, Neur o deficit, acute, stroke suspected TECHNIQUE: Brain: Axial CT images of the brain were obtained with coronal and sagittal reformats created and rev iewed. Contrast used: None. Oral contrast used: None. FINDINGS: Brain: Extra-axial spaces: No abnormal extra-axial fluid collections. Ventricular system: Within normal limits Cerebral parenchyma: No acute intraparenchymal hemorrhage or mass effect. The gutiérrez-white junction is well differentiated. Scattered hypoattenuating areas are seen within the white matter. Cerebellum: Unremarkable. Mass effect: No evidence of midline shift. Intracranial vasculature: Atherosclerotic calcifications of the intracranial vessels. Soft tissues: Normal. Calvarium/osseous structures: No depressed skull fracture. Paranasal sinuses and mastoid air cells: Mild scattered paranasal sinus disease. Visualized orbits: Bilateral aphakia IMPRESSION: Stable exam without acute intracranial process.
[2024-01-12 21:45] LABS: ALT 17 U/L (4-34); AST 29 U/L (14-36); African American GFR (CKD) >90 (>60 ml/min/1.73 sqM); Alkaline Phosphatase 70 U/L (38-126); Anion Gap 11 mmol/L; Blood Urea Nitrogen 16 mg/dL (7-17); Carbon Dioxide 23 mmol/L (22-30); Chloride 96 mmol/L (98-107); Creatine Kinase 105 U/L (30-135); Glucose 119 mg/dL (74-99); Non-African American GFR(CKD) >90 (>60 ml/min/1.73 sqM); Potassium 4.3 mmol/L (3.5-5.1); Sodium 130 mmol/L (137-145); Total Bilirubin 0.6 mg/dL (0.2-1.3); Total Protein 7.8 g/dL (6.3-8.2)
[2024-01-12 21:53] LABS: Partial Thromboplastin Time 23.9 sec (22.0-30.0); Prothrombin Time 10.8 sec (10.0-12.5)
--- NOTE | 2024-01-12 22:09 | XR ---
EXAMINATION TYPE: XR chest 2V DATE OF EXAM: 01/12/2024 COMPARISON: Prior chest x-ray November 06, 2022 HISTORY: Code stroke. Altered mental status. TECHNIQUE: Frontal and lateral views of the chest are obtained. FINDINGS: There is no suspicious new focal air space opacity, pleural effusion, or pneumothorax seen . The cardiac silhouette size is stable and within normal limits. The osseous structures are intac t. IMPRESSION: No acute cardiopulmonary process. No significant change from prior.
--- NOTE | 2024-01-12 22:12 | CT ---
EXAMINATION TYPE: CT angio head neck CT DLP: mGycm, Automated exposure control for dose reduction was used. DATE OF EXAM: 01/12/2024 10:01 PM COMPARISON: CTA 11/06/2022. CLINICAL INDICATION:Female, 68 years old with history of Neuro deficit, acute, stroke suspected; [facility], TECHNIQUE: Axially acquired helical CT angiogram of the head and neck was obtained with contrast. Axi al images are supplemented with 3D reconstructions which [facility] NASCET criteria used. Contrast used: 100 mL of Isovue 370 , Oral contrast used: None. FINDINGS: CTA HEAD: The visualized portions of the internal carotid arteries, middle cerebral arteries, anterior cerebral arteries, and posterior cerebral arteries are patent. Atherosclerotic disease of the bilateral carot id siphons crating moderate stenosis. The basilar and vertebral arteries are patent. CTA NECK: Right Carotid System: The common carotid artery and external carotid artery are patent. The carotid bifurcation demonstrate s no evidence of hemodynamically significant stenosis. Atherosclerotic disease of the proximal compliance intern al carotid artery creates stable 70% stenosis. Left Carotid System: The common carotid artery and external carotid artery are patent. The carotid bifurcation demonstrate s no evidence of hemodynamically significant stenosis. The remaining portions of the internal carotid artery demonstrate normal size without significant narrowing. Vertebral arteries are patent without evidence hemodynamically significant stenosis. There is a two-vessel aortic arch. The origins of the great vessels are patent. No evidence of hemody namically significant stenosis. Upper thorax: Unremarkable IMPRESSION: 1. No evidence of significant intracranial arterial vascular stenosis or occlusion. 2. Stable exam demonstrating scattered at the carotid disease with up to 70% stenosis of the proximal left internal carotid artery.
--- NOTE | 2024-01-12 23:13 | ED ---
Neuro HPI - General Source: patient, family Mode of arrival: wheelchair Limitations: no limitations - History of Present Illness Is the patient presenting with stroke symptoms?: Yes Last Known Well Date: 01/12/24 Last Known Well Time: 20:10 -: minutes(s) Location: speech, right face, right arm History of same: Yes Place: home Severity: mild Quality: numb, improving Improves With: time Worsens With: none On Anticoagulants: Yes (Plavix) Context: sudden onset Associated Symptoms: headaches Treatments Prior to Arrival: none <Diomedes Granados - Last Filed: 01/12/24 23:14> - General Source: RN notes reviewed, old records reviewed Mode of arrival: wheelchair Limitations: no limitations <Loki Salvador - Last Filed: 01/22/24 22:25> - General Chief Complaint: Neuro Symptoms/Deficit Stated Complaint: possible stroke- slurred speech hx of strokes Time Seen by Provider: 01/12/24 21:07 - History of Present Illness Initial Comments: This is a 68-year-old female to the ER for evaluation, patient recently had CVA symptoms, current had CVA symptoms here in the emergency department including slurred speech weakness and right arm weakness patient has history of high blood pressure cholesterol and diabetes (Loki Salvador) - Related Data Home Medications: Home Medications Medication Instructions Recorded Confirmed Citalopram Hydrobromide [CeleXA] 40 mg PO HS 09/19/17 01/13/24 Meclizine HCl 25 mg PO DAILY 09/19/17 01/13/24 Metoprolol Tartrate [Lopressor] 25 mg PO BID 09/19/17 01/14/24 metFORMIN HCL [Glucophage] 1,000 mg PO BID 09/19/17 01/13/24 Pantoprazole [Protonix] 40 mg PO BID 11/06/22 01/13/24 Acetaminophen-Codeine 300-30mg 1 tab PO Q6H PRN 01/13/24 01/13/24 [Tylenol w/codeine #3] Clopidogrel [Plavix] 75 mg PO HS 01/13/24 01/13/24 Cyanocobalamin (Vitamin B-12) 1,000 mcg PO DAILY 01/13/24 01/13/24 [Vitamin B-12] Ferrous Sulfate [Iron (65 MG 325 mg PO DAILY 01/13/24 01/13/24 Elemental)] Magnesium 250 mg PO DAILY 01/13/24 01/13/24 Insulin Degludec [Tresiba 25 - 30 units SQ HS 01/14/24 01/14/24 Flextouch U-200 Pen] Previous Rx's Medication Instructions Recorded Aspirin 81 mg PO DAILY tab 01/15/24 Atorvastatin [Lipitor] 80 mg PO DAILY #90 tab 01/15/24 Docusate [Colace] 100 mg PO Q8HR cap 01/15/24 Dulaglutide [Trulicity] 3 mg SQ BARNARD 01/15/24 Pioglitazone [Actos] 30 mg PO HS #60 tab 01/15/24 amLODIPine [Norvasc] 5 mg PO DAILY #60 tab 01/15/24 Allergies/Adverse Reactions: Allergies Allergy/AdvReac Type Severity Reaction Status Date / Time No Known Allergies Allergy Verified 01/12/24 21:42 Review of Systems ROS Other: All systems not noted in ROS Statement are negative. Constitutional: Denies: fever, chills, weakness Eyes: Denies: vision change Respiratory: Denies: cough, dyspnea Cardiovascular: Denies: chest pain, palpitations, edema Gastrointestinal: Denies: abdominal pain, nausea, vomiting, diarrhea Genitourinary: Denies: dysuria, hematuria Musculoskeletal: Denies: back pain Skin: Denies: rash Neurological: Reports: as per HPI, headache, weakness, numbness Hematological/Lymphatic: Denies: easy bleeding <Diomedes Granados - Last Filed: 01/12/24 23:14> ROS Other: All systems not noted in ROS Statement are negative. <Loki Salvador - Last Filed: 01/22/24 22:25> ROS Statement: Those systems with pertinent positive or pertinent negative responses have been documented in the HPI. General Exam Limitations: no limitations General appearance: alert, in no apparent distress Head exam: Present: atraumatic, normocephalic Eye exam: Present: normal appearance, PERRL, EOMI. Absent: scleral icterus, conjunctival injection, nystagmus ENT exam: Present: normal oropharynx Neck exam: Present: normal inspection, full ROM. Absent: meningismus Respiratory exam: Present: normal lung sounds bilaterally. Absent: respiratory distress, wheezes, rales, rhonchi, stridor, accessory muscle use Cardiovascular Exam: Present: regular rate, normal rhythm, normal heart sounds. Absent: systolic murmur, diastolic murmur, rubs, gallop GI/Abdominal exam: Present: soft. Absent: distended, tenderness, guarding, rebound, rigid, mass Extremities exam: Present: normal inspection, normal capillary refill. Absent: pedal edema, calf tenderness Back exam: Present: normal inspection. Absent: CVA tenderness (R), CVA tenderness (L) Neurological exam: Present: alert, oriented X3, CN II-XII intact, motor sensory deficit Expanded Neurological exam: Present: protecting the airway Patient oriented to: Present: person, place, time Speech: Present: fluid speech Cranial nerves: EOM's Intact: Normal, Tongue Deviation: Normal, Facial Sensation: Normal, Facial Palsy with Forehead Movement: Normal Cerebellar function: Finger to Nose: Normal Sensory exam: Upper Extremity Light Touch: Abnormal Right, Lower Extremity Light Touch: Normal Motor strength exam: RUE: 5, LUE: 5, RLE: 5, LLE: 5 Eye Response: (4) open spontaneously Motor Response: (6) obeys commands Verbal Response: (5) oriented Corina Total: 15 Skin exam: Present: warm, dry, intact, normal color. Absent: rash <Diomedes Granados - Last Filed: 01/12/24 23:14> General appearance: alert, in no apparent distress Head exam: Present: atraumatic, normocephalic, normal inspection Eye exam: Present: normal appearance, PERRL, EOMI. Absent: scleral icterus, con junctival injection, periorbital swelling ENT exam: Present: normal exam, mucous membranes moist Neck exam: Present: normal inspection. Absent: tenderness, meningismus, lymphadenopathy Respiratory exam: Present: normal lung sounds bilaterally. Absent: respiratory distress, wheezes, rales, rhonchi, stridor Cardiovascular Exam: Present: regular rate, normal rhythm, normal heart sounds. Absent: systolic murmur, diastolic murmur, rubs, gallop, clicks GI/Abdominal exam: Present: soft, normal bowel sounds. Absent: distended, tenderness, guarding, rebound, rigid Extremities exam: Present: normal inspection, full ROM, normal capillary refill. Absent: tenderness, pedal edema, joint swelling, calf tenderness Back exam: Present: normal inspection Neurological exam: Present: alert, oriented X3, CN II-XII intact Psychiatric exam: Present: normal affect, normal mood Skin exam: Present: warm, dry, intact, normal color. Absent: rash <Loki Salvador - Last Filed: 01/22/24 22:25> Stroke MDM - Lab Data Result diagrams: 01/12/24 21:24 01/12/24 21:24 - EKG Data -: EKG Interpreted by [facility] EKG shows normal: sinus rhythm, axis (Normal), QRS complexes (Low voltage QRS complex) Rate: normal (Rate 82 bpm) <DarwinDiomedes - Last Filed: 01/12/24 23:14> - Lab Data Result diagrams: 01/12/24 21:24 01/12/24 21:24 - NIH Stroke Scale 1a. Level of Consciousness: (0) alert 1b. LOC Questions: (0) answers correctly 1c. LOC Commands: (0) performs tasks correctly 2. Best Gaze: (0) normal 3. Visual: (0) no visual loss 4. Facial Palsy: (0) normal symmetrical movement 5a. Motor Arm Left: (0) no drift 5b. Motor Arm Right: (1) drift 6a. Motor Leg Left: (0) no drift 6b. Motor Leg Right: (1) drift 7. Limb Ataxia: (1) present 1 limb 8. Sensory: (0) normal 9. Best Language: (1) mild/moderate aphasia 10. Dysarthria: (1) mild/moderate dysarthria 11. Extinction/Inattention: (0) no abnormality - Thrombolytic Inclusion/Exclusion Thrombolytic Exclusion Criteria: Symptom Onset > 4.5 Hours Thrombolytic Inclusion Criteria: Symptom Onset < 4.5 h - Radiology Data Radiology results: report reviewed (CT brain is negative for acute disease CTA does show stenosis 70%), image reviewed - EKG Data -: EKG Interpreted by [facility] <Loki Salvador - Last Filed: 01/22/24 22:25> - Lab Data Lab Results 01/12/24 01/12/24 01/12/24 Range/Units 21:24 21:24 21:24 WBC 10.7 H (3.8-10.6) k/uL RBC 4.57 (3.80-5.40) m/uL Hgb 12.4 (11.4-16.0) gm/dL Hct 38.9 (34.0-46.0) % MCV 85.0 (80.0-100.0) fL MCH 27.0 (25.0-35.0) pg MCHC 31.8 (31.0-37.0) g/dL RDW 15.3 (11.5-15.5) % Plt Count 328 (150-450) k/uL MPV 7.7 Neutrophils % 53 % Lymphocytes % 36 % Monocytes % 5 % Eosinophils % 1 % Basophils % 1 % Neutrophils # 5.6 (1.3-7.7) k/uL Lymphocytes # 3.9 (1.0-4.8) k/uL Monocytes # 0.5 (0-1.0) k/uL Eosinophils # 0.2 (0-0.7) k/uL Basophils # 0.1 (0-0.2) k/uL Hypochromasia Slight PT 10.8 (10.0-12.5) sec INR 1.0 (<1.2) APTT 23.9 (22.0-30.0) sec Sodium 130 L (137-145) mmol/L Potassium 4.3 (3.5-5.1) mmol/L Chloride 96 L (98-107) mmol/L Carbon Dioxide 23 (22-30) mmol/L Anion Gap 11 mmol/L BUN 16 (7-17) mg/dL Creatinine 0.58 (0.52-1.04) mg/dL Est GFR (CKD-EPI)AfAm >90 (>60 ml/min/1.73 sqM) Est GFR (CKD-EPI)NonAf >90 (>60 ml/min/1.73 sqM) Glucose 119 H (74-99) mg/dL Calcium 10.0 (8.4-10.2) mg/dL Total Bilirubin 0.6 (0.2-1.3) mg/dL AST 29 (14-36) U/L ALT 17 (4-34) U/L Alkaline Phosphatase 70 (38-126) U/L Creatine Kinase 105 (30-135) U/L Troponin I (0.000-0.034) ng/mL Total Protein 7.8 (6.3-8.2) g/dL Albumin 5.0 (3.5-5.0) g/dL 01/12/24 Range/Units 21:24 WBC (3.8-10.6) k/uL RBC (3.80-5.40) m/uL Hgb (11.4-16.0) gm/dL Hct (34.0-46.0) % MCV (80.0-100.0) fL MCH (25.0-35.0) pg MCHC (31.0-37.0) g/dL RDW (11.5-15.5) % Plt Count (150-450) k/uL MPV Neutrophils % % Lymphocytes % % Monocytes % % Eosinophils % % Basophils % % Neutrophils # (1.3-7.7) k/uL Lymphocytes # (1.0-4.8) k/uL Monocytes # (0-1.0) k/uL Eosinophils # (0-0.7) k/uL Basophils # (0-0.2) k/uL Hypochromasia PT (10.0-12.5) sec INR (<1.2) APTT (22.0-30.0) sec Sodium (137-145) mmol/L Potassium (3.5-5.1) mmol/L Chloride (98-107) mmol/L Carbon Dioxide (22-30) mmol/L Anion Gap mmol/L BUN (7-17) mg/dL Creatinine (0.52-1.04) mg/dL Est GFR (CKD-EPI)AfAm (>60 ml/min/1.73 sqM) Est GFR (CKD-EPI)NonAf (>60 ml/min/1.73 sqM) Glucose (74-99) mg/dL Calcium (8.4-10.2) mg/dL Total Bilirubin (0.2-1.3) mg/dL AST (14-36) U/L ALT (4-34) U/L Alkaline Phosphatase (38-126) U/L Creatine Kinase (30-135) U/L Troponin I <0.012 (0.000-0.034) ng/mL Total Protein (6.3-8.2) g/dL Albumin (3.5-5.0) g/dL - Medical Decision Making 68 female to ER for evaluation, acute CVA. Patient will be admitted for neurology evaluation and management (Loki Salvador) Past Medical History Past Medical History: Chest Pain / Angina, CVA/TIA, Diabetes Mellitus, Hyperlipidemia, Hypertension, Myocardial Infarction ([place]), Sleep Apnea/CPAP/BIPAP Last Myocardial Infarction Date:: 2006 History of Any Multi-Drug Resistant Organisms: None Reported Past Surgical History: Section, Cholecystectomy, Heart Catheterization With Stent Additional Past Surgical History / Comment(s): 2012 dr wilson repaired/replace a stent Past Anesthesia/Blood Transfusion Reactions: No Reported Reaction Date of Last Stent Placement:: 2012 Past Psychological History: No Psychological Hx Reported Smoking Status: Never smoker Past Alcohol Use History: None Reported Past Drug Use History: None Reported - Past Family History Mother Additional Family Medical History / Comment(s): passed from liver failure. No history of coronary artery disease. Father Additional Family Medical History / Comment(s): passed from kidney failure. No history of coronary artery disease. Sister(s) Family Medical History: No Reported History Brother(s) Family Medical History: No Reported History Daughter(s) Family Medical History: No Reported History Son(s) Additional Family Medical History / Comment(s): both sons have addiction problems, depression and anxiety <Diomedes Granados - Last Filed: 01/12/24 23:14> Course <Loki Salvador - Last Filed: 01/22/24 22:25> Vital Signs 01/12/24 01/12/24 01/12/24 20:52 21:30 21:45 Temperature 97.6 F Pulse Rate 83 95 85 Respiratory 18 23 17 Rate Blood Pressure 155/78 146/79 131/68 O2 Sat by Pulse 99 97 99 Oximetry 01/12/24 01/12/24 01/12/24 22:00 22:15 22:30 Temperature Pulse Rate 86 84 84 Respiratory 21 18 14 Rate Blood Pressure 125/68 129/69 156/80 O2 Sat by Pulse 95 99 98 Oximetry 01/12/24 01/12/24 01/12/24 22:45 22:54 23:15 Temperature Pulse Rate 84 81 78 Respiratory 14 16 19 Rate Blood Pressure 140/70 148/82 144/77 O2 Sat by Pulse 98 97 97 Oximetry 01/12/24 01/13/24 01/13/24 23:45 00:15 00:45 Temperature Pulse Rate 85 81 82 Respiratory 18 14 14 Rate Blood Pressure 140/70 138/66 135/69 O2 Sat by Pulse 95 96 96 Oximetry 01/13/24 01/13/24 01/13/24 01:15 01:45 02:15 Temperature Pulse Rate 72 80 77 Respiratory 15 18 18 Rate Blood Pressure 140/69 137/78 127/81 O2 Sat by Pulse 97 96 98 Oximetry 01/13/24 01/13/24 01/13/24 02:45 03:15 04:45 Temperature Pulse Rate 74 69 69 Respiratory 14 12 14 Rate Blood Pressure 130/55 130/55 131/61 O2 Sat by Pulse 96 97 97 Oximetry 01/13/24 01/13/24 01/13/24 05:15 09:25 14:42 Temperature 97.0 F L Pulse Rate 70 64 101 H Respiratory 13 16 18 Rate Blood Pressure 131/47 150/70 125/69 O2 Sat by Pulse 96 96 100 Oximetry - Reevaluation(s) Reevaluation #1: 01/12/24 Medical records reviewed (Loki Salvador) Reevaluation #2: 01/12/24 Patient symptoms unchanged (Loki Salvador) Reevaluation #3: 01/12/24 Patient informed of results and questions answered (Loki Salvador) Reevaluation #4: Was pt. sent in by a medical professional or institution (, PA, [facility], urgent care, hospital, or snf...) When possible be specific @ -no Did you speak to anyone other than the patient for history (EMS, parent, family, police, friend...)? What history was obtained from this source @ -no Did you review nursing and triage notes (agree or disagree)? Why? @ -agree Are old charts reviewed (outside hosp., previous admission, EMS record, old EKG, old radiological studies, urgent care reports/EKG's, snf records)? Report findings @ -yes Differential Diagnosis (chest pain, altered mental status, abdominal pain women, abdominal pain men, vaginal bleeding, weakness, fever, dyspnea, syncope, headache, dizziness, GI bleed, back pain, seizure, CVA, palpatations, mental health, musculoskeletal)? @ -prior EKG interpreted by me (3pts min.). @ -yes X-rays interpreted by me (1pt min.). @ -no CT interpreted by me (1pt min.). @ -Yes negative for acute disease U/S interpreted by me (1pt. min.). @ -no What testing was considered but not performed or refused? (CT, X-rays, U/S, labs)? Why? @ -none What meds were considered but not given or refused? Why? @ -none Did you discuss the management of the patient with other professionals (professionals i.e. , PA, [facility], lab, RT, psych nurse, social worker clinical, spreader operator, teacher, military source operations officer, manager case)? Give summary @ -no Was smoking cessation discussed for >3mins.? @ -no Was critical care preformed (if so, how long)? @ -yes31 Were there social determinants of health that impacted care today? How? (Homelessness, low income, unemployed, alcoholism, drug addiction, transportation, low edu. Level, literacy, decrease access to med. care, retirement, rehab)? @ -none Was there de-escalation of care discussed even if they declined (Discuss DNR or withdrawal of care, Hospice)? DNR status @ -no What co-morbidities impacted this encounter? (DM, HTN, Smoking, COPD, CAD, Cancer, CVA, ARF, Chemo, Hep., AIDS, mental health diagnosis, sleep apnea, morbid obesity)? @ -none Was patient admitted / discharged? Hospital course, mention meds given and route, prescriptions, significant lab abnormalities, going to OR and other pertinent info. @ - 68 female to ER for evaluation, acute CVA. Patient will be admitted for neurology evaluation and management Admitted Undiagnosed new problem with uncertain prognosis? @ -no Drug Therapy requiring intensive monitoring for toxicity (Heparin, Nitro, Insulin, Cardizem)? @ -no Were any procedures done? @ -no Diagnosis/symptom? @ -CVA Acute, or Chronic, or Acute on Chronic? @ -Acute Uncomplicated (without systemic symptoms) or Complicated (systemic symptoms)? @ -Complicated Side effects of treatment? @ -no Exacerbation, Progression, or Severe Exacerbation? @ -exacerbation Poses a threat to life or bodily function? How? (Chest pain, [place], [place], pneumonia, PE, COPD, DKA, ARF, appy, cholecystitis, CVA, Diverticulitis, Homicidal, Suicidal, threat to staff... and all critical care pts) @ -yes] with acute CVA (Loki Salvador) Reevaluation #5: Differential CVA Ischemic stroke, hemorrhagic stroke, brain tumor, atypical migraine, Wernicke's encephalopathy, seizure, multiple sclerosis, meningitis, encephalitis, hypoglycemia, Guillain-Camacho, electrolytes disturbance, myasthenia gravis.... This is not meant to be an all-inclusive list (Loki Salvador) - Consultations Consultation #1: Spoke with admitting physicians who agreed to admit the patient (Loki Salvador) Critical Care Time Critical Care Time: Yes Total Critical Care Time: 31 <Loki Salvador - Last Filed: 01/22/24 22:25> Disposition <Diomedes Granados - Last Filed: 01/12/24 23:14> Is patient prescribed a controlled substance at d/c from ED?: No <Loki Salvador - Last Filed: 01/22/24 22:25> Clinical Impression: Cerebrovascular accident (CVA) Disposition: ADMITTED IP TO THIS HOSP Condition: Serious
[2024-01-12] MEDS ORDERED: ACETAMINOPHEN TAB 325 MG TAB PO PRN (23:41)
[2024-01-13] MEDS: IBUPROFEN 600 MG TAB PO STA (00:29)
[2024-01-13] MEDS: ASPIRIN 325 MG TAB PO STA (00:29)
[2024-01-13] MEDS: ACETAMINOPHEN TAB 500 MG TAB PO STA (00:30)
[2024-01-13] MEDS: SODIUM CHLORIDE 0.9% 1,000 ML IV SCH (00:33)
[2024-01-13] MEDS: DOCUSATE 100 MG CAP PO SCH (01:26)
[2024-01-13] MEDS ORDERED: ACETAMINOPHEN TAB 325 MG TAB PO PRN (07:45)
[2024-01-13] MEDS ORDERED: TICAGRELOR 90 MG TAB PO SCH (09:00)
[2024-01-13] MEDS: FAMOTIDINE 20 MG TAB PO SCH (09:32)
[2024-01-13] MEDS: ASPIRIN 81 MG PO SCH (09:33)
[2024-01-13] MEDS: PANTOPRAZOLE 40 MG TABLET PO SCH (09:33)
[2024-01-13] MEDS: MECLIZINE 25 MG TAB PO SCH (09:33)
[2024-01-13] MEDS: amLODIPine 5 MG TAB PO SCH (09:33)
[2024-01-13] MEDS: CLOPIDOGREL 75 MG TAB PO SCH (09:33)
[2024-01-13] MEDS: ASPIRIN 325 MG TAB PO SCH (09:33)
[2024-01-13] MEDS: ATORVASTATIN 80 MG TAB PO SCH (09:33)
[2024-01-13] MEDS: Dulaglutide [Trulicity] 3 MG/0.5 ML Each SQ SCH (09:34)
[2024-01-13 10:12] LABS: Chol/HDL Ratio 2.49 Ratio
[2024-01-13] MEDS: TICAGRELOR 90 MG TAB PO SCH (10:27)
--- NOTE | 2024-01-13 10:27 | P.HPIM ---
History of Present Illness H&P Date: 01/13/24 Chief Complaint: TIA/CVA, severe stenosis of the left carotid, atherosclerotic heart disease HISTORY OF PRESENT ILLNESS: 68-year-old woman my office patient with multimedical problems known to have history of atherosclerotic heart disease, type 2 diabetes, previous history of TIA/CVA, history of hypertension hyperlipidemia hospitalized last for CVA about a year ago, she was in [place] 2 weeks ago developed to have severe pain behind her left eye along with dysphagia and slight weakness and numbness in the right side of her body she ended up being hospitalized for 3 days had carotid ultrasound, echocardiogram, MRI of the brain and seen neuro along with hospitalist service and testing were completed as a finding of TIA versus she was placed on Plavix and told to follow with her primary care. Last night patient was at home with her when developed to have slightly droopy face to the right side developed to have severe pressure and pain behind the left eye and developed to have severe expressive aphasia could not express herself for over an hour was associated with slight numbness and weakness in the right side of her body. She brought by her to the emergency department late in the evening. Ended up going for CAT scan of the brain did not show any major abnormality, CTA showed over 70% blockage of the right internal carotid with consistent with the same finding from a year ago. Her laboratory value did not show any major abnormality blood sugar has been better controlled. EKG did not show any sign of arrhythmia or A-fib. Patient be admitted to the hospital will consult neurology along with cardiology for possible transesophageal echocardiogram also try to get copy of the report from [place] from 2 weeks ago. REVIEW OF SYSTEMS: CONSTITUTIONAL: Well-developed no acute respiratory distress. EYES: No icterus sclerae, no conjunctivitis. EARS, NOSE, MOUTH, THROAT, and FACE: No sore throat, lymphadenopathy, carotid bruits or deformity. RESPIRATORY: No SOB cough or wheezes. CARDIOVASCULAR: No CP, Palpitation, PND, Orthopnea, or angina. GASTROINTESTINAL: No Abd pain, Nausea or vomiting, no Diarrhea or constipation, No GI Bleed, no distention or masses. GENITOURINARY: Negative for Hematuria or UTI, no kidney stones. INTEGUMENT/BREAST: Negative for any muscular injury with mild osteoarthritis.. HEMATOLOGIC/LYMPHATIC: Negative for bleed or purpura. MUSCULOSKELTAL: Negative for Myalgia or arthralgia. NEURLOGICAL: No LOC, Sz or syncope, blurred vision dizziness or abnormality.. BEHAVIORAL/PSYCH: Negative. ENDOCRINE: Negative. PHYSICAL EXAMINATION: General Appearance: Alert, cooperative, no distress, appears stated age. Neck HEENT: Supple, no lymphadenopathy, no thyroid enlargement, no carotid bruits. Lungs: Clear to auscultation without crackles or wheezes no rhonchi, no deformity. Chest Wall: Chest wall normal expansion with deep inspiration no tenderness and no deformity was found on exam, no costochondral pain or discomfort. Heart: Regular rate and rhythm, S1, S2 normal, no murmur, rub or gallop. Back: Symmetric, no curvature, ROM normal, no CVA tenderness. Abdomen: Soft, non-tender, bowel sounds active all four quadrants, no masses, no organomegaly. Extremities: Extremities normal, atraumatic, no cyanosis or edema. Pulses: 2+ and symmetric. Skin: Skin color, texture, tugor normal, no rashes or lesions. Neurologic: Alert oriented x3 cranial nerves II through XII intact, no motor deficit, no abnormal balance or gait. No drift or any weakness in 1 side of her body compared to the other and her speech is very normal at this point. ASSESSMENT AND PLAN: _CVA/TIA: Her symptoms are reversed consistent with TIA mostly since this is happened 2 weeks ago in [place] had the same repeat event last night not clear if this can be some sort of ocular migraine but if that is the case should not be associated with droopy face. Will consult neurology, consult cardiology for transesophageal echocardiogram, continue to watch patient on heart monitor to make sure there is no atrial fibrillation can explain thrombus might have caused a TIA at this time. Patient will remain on antiplatelet agent with her Plavix along with baby aspirin and continue aggressive management for cholesterol and blood pressure. _PAD and severe stenosis of the right internal carotid artery: Will consult vascular for possible need for surgery. _Advanced atherosclerotic heart disease with cardiomyopathy: Has been seen c ardiology on more regular basis remain on atorvastatin, aspirin, Brilinta, metoprolol and should be on ARB. _Type 2 diabetes: Remain on Trulicity, Actos, metformin and Tresiba 30 unit daily continue Accu-Chek with sliding scale coverage and resume medication. _Iron deficiency anemia: Her test from 2 weeks ago was consistent with mild anemia, patient gastroenterology testing are up-to-date last colonoscopy from 3 years ago with polyp she was supposed to have it in 2 more years. CBC today does not show any sign of anemia. _Hypertension: Has been well-controlled on metoprolol the patient was previously on a small low-dose of ARB which is losartan or valsartan. _Hyperlipidemia: Remain on atorvastatin 80 mg daily try to keep her LDL below 70. _Severe GERD: Remain on pantoprazole 40 mg a day resume medication. _Mild peripheral neuropathy mostly diabetic patient refused being on medication at this point still have mild symptoms. _Mild IBS: Most likely the effect of metformin and pioglitazone patient still using antidiarrhea medication every so often. _Anticoagulation treatment and management: Remain on Brilinta for now whether need to be switched to Plavix or not to be determined. _GI prophylaxis: Still on pantoprazole. _DVT prophylaxis: Early mobilization and knee-high SCOTTY hose. _CODE STATUS: Full code. Admit patient to the inpatient service for more than 2 night stay. Past Medical History Past Medical History: Chest Pain / Angina, CVA/TIA, Diabetes Mellitus, Hyperlipidemia, Hypertension, Myocardial Infarction ([place]), Sleep Apnea/CPAP/BIPAP Last Myocardial Infarction Date:: 2006 History of Any Multi-Drug Resistant Organisms: None Reported Past Surgical History: Section, Cholecystectomy, Heart Catheterization With Stent Additional Past Surgical History / Comment(s): 2012 dr wilson repaired/replace a stent Past Anesthesia/Blood Transfusion Reactions: No Reported Reaction Date of Last Stent Placement:: 2012 Past Psychological History: No Psychological Hx Reported Smoking Status: Never smoker Past Alcohol Use History: None Reported Past Drug Use History: None Reported - Past Family History Mother Additional Family Medical History / Comment(s): passed from liver failure. No history of coronary artery disease. Father Additional Family Medical History / Comment(s): passed from kidney failure. No history of coronary artery disease. Sister(s) Family Medical History: No Reported History Brother(s) Family Medical History: No Reported History Daughter(s) Family Medical History: No Reported History Son(s) Additional Family Medical History / Comment(s): both sons have addiction problems, depression and anxiety Medications and Allergies Home Medications Medication Instructions Recorded Confirmed Type Citalopram Hydrobromide [CeleXA] 40 mg PO HS 09/19/17 01/13/24 History Meclizine HCl 25 mg PO DAILY 09/19/17 01/13/24 History Metoprolol Tartrate [Lopressor] 25 mg PO DIRECTED 09/19/17 01/13/24 History metFORMIN HCL [Glucophage] 1,000 mg PO BID 09/19/17 01/13/24 History Pantoprazole [Protonix] 40 mg PO BID 11/06/22 01/13/24 History Acetaminophen-Codeine 300-30mg 1 tab PO Q6H PRN 01/13/24 01/13/24 History [Tylenol w/codeine #3] Atorvastatin [Lipitor] 40 mg PO HS 01/13/24 01/13/24 History Clopidogrel [Plavix] 75 mg PO HS 01/13/24 01/13/24 History Cyanocobalamin (Vitamin B-12) 1,000 mcg PO DAILY 01/13/24 01/13/24 History [Vitamin B-12] Ferrous Sulfate [Feosol] 325 mg PO DAILY 01/13/24 01/13/24 History Magnesium 250 mg PO DAILY 01/13/24 01/13/24 History Pioglitazone [Actos] 15 mg PO HS 01/13/24 01/13/24 History Tresiba (Unknown Strength) 25 - 30 units SQ DIRECTED 01/13/24 01/13/24 History Allergies Allergy/AdvReac Type Severity Reaction Status Date / Time No Known Allergies Allergy Verified 01/12/24 21:42 Physical Exam Vitals: Vital Signs Temp Pulse Resp BP Pulse Ox 01/13/24 05:15 70 13 131/47 96 01/13/24 04:45 69 14 131/61 97 01/13/24 03:15 69 12 130/55 97 01/13/24 02:45 74 14 130/55 96 01/13/24 02:15 77 18 127/81 98 01/13/24 01:45 80 18 137/78 96 01/13/24 01:15 72 15 140/69 97 01/13/24 00:45 82 14 135/69 96 01/13/24 00:15 81 14 138/66 96 01/12/24 23:45 85 18 140/70 95 01/12/24 23:15 78 19 144/77 97 01/12/24 22:54 81 16 148/82 97 01/12/24 22:45 84 14 140/70 98 01/12/24 22:30 84 14 156/80 98 01/12/24 22:15 84 18 129/69 99 01/12/24 22:00 86 21 125/68 95 01/12/24 21:45 85 17 131/68 99 01/12/24 21:30 95 23 146/79 97 01/12/24 20:52 97.6 F 83 18 155/78 99 Intake and Output 01/12/24 01/13/24 01/13/24 22:59 06:59 14:59 Other: Weight 77.111 kg Results CBC & Chem 7: 01/12/24 21:24 01/12/24 21:24 Labs: Abnormal Lab Results - Last 24 Hours (Table) 01/12/24 01/12/24 Range/Units 21:24 21:24 WBC 10.7 H (3.8-10.6) k/uL Sodium 130 L (137-145) mmol/L Chloride 96 L (98-107) mmol/L Glucose 119 H (74-99) mg/dL
[2024-01-13 15:02] LABS: Glucose,Whole Blood 153 mg/dL (70-110)
[2024-01-13 16:18] LABS: Glucose,Whole Blood 226 mg/dL (70-110)
[2024-01-13 20:29] LABS: Glucose,Whole Blood 262 mg/dL (70-110)
[2024-01-13] MEDS: INSULIN DETEMIR (LEVEMIR) 100 UNIT/ML SYR SQ SCH (21:51)
[2024-01-13] MEDS: CITALOPRAM HYDROBROMIDE 20 MG TAB PO SCH (21:51)
[2024-01-13] MEDS: PIOGLITAZONE 30 MG TAB PO SCH (21:51)
[2024-01-13] MEDS: METOPROLOL TARTRATE 25 MG TAB PO SCH (21:52)
--- NOTE | 2024-01-14 01:33 | P.CNNES ---
History of Present Illness Consult date: 01/13/24 Requesting physician: Diomedes Granados Reason for Consult: TIA History of Present Illness: Patient is a 68-year-old right-handed female with history of diabetes, hypertension, CAD, came to the hospital yesterday at 8:45 PM with another episode of possible TIA. Patient says that she had 5 such episodes in the last 4-1/2 years. One of them occurred 2 weeks ago, and one before was last year. Same thing happened last night when she developed pain in right eye, loses her speech but not too long, not very severe. She can see good. She can speak but not making sense. She also notices some tingling in the right wrist hand and the foot. It lasted for about less than 90 minutes. All similar spells in the past have lasted for the same period of time as well. Vital signs on arrival blood pressure 155/78, pulse 83 temperature 97.6. Blood test shows normal CBC, PT/PTT, sodium 130 potassium 4.3, normal renal, hepatic panel. Normal troponin. CT head showed no acute process. I personally reviewed 68, the findings. CTA of head and neck revealed no evidence of significant intracranial arterial vascular stenosis or occlusion. Stable exam demonstrating scattered at the carotid disease with up to 70% stenosis of the proximal right ICA. Patient states that her sister had history of stroke 4 years ago. Patient denies any tobacco or alcohol use. Patient has history of diabetes for 20 years, hypertension, CAD with 6 cardiac stents. Patient has been on Plavix versus 10 years. Patient does not take any aspirin with it. Patient says that she leaves with her . She does not use any assistive device for ambulation. Patient had previously been diagnosed with right ICA stenosis 70%. Patient seemed was seen by vascular surgery. Patient underwent cerebral angiogram, by Dr. Murillo, and no significant stenosis was made. Medical management was recommended. Review of Systems Review of systems all negative except as mentioned in HPI. Past Medical History Past Medical History: Chest Pain / Angina, CVA/TIA, Diabetes Mellitus, Hyperlipidemia, Hypertension, Myocardial Infarction ([place]), Sleep Apnea/CPAP/BIPAP Last Myocardial Infarction Date:: 2006 History of Any Multi-Drug Resistant Organisms: None Reported Past Surgical History: Section, Cholecystectomy, Heart Catheterization With Stent Additional Past Surgical History / Comment(s): 2012 dr wilson repaired/replace a stent Past Anesthesia/Blood Transfusion Reactions: No Reported Reaction Date of Last Stent Placement:: 2012 Past Psychological History: No Psychological Hx Reported Smoking Status: Never smoker Past Alcohol Use History: None Reported Past Drug Use History: None Reported - Past Family History Mother Additional Family Medical History / Comment(s): passed from liver failure. No history of coronary artery disease. Father Additional Family Medical History / Comment(s): passed from kidney failure. No history of coronary artery disease. Sister(s) Family Medical History: No Reported History Brother(s) Family Medical History: No Reported History Daughter(s) Family Medical History: No Reported History Son(s) Additional Family Medical History / Comment(s): both sons have addiction p roblems, depression and anxiety Medications and Allergies Home Medications Medication Instructions Recorded Confirmed Type Citalopram Hydrobromide [CeleXA] 40 mg PO HS 09/19/17 01/13/24 History Meclizine HCl 25 mg PO DAILY 09/19/17 01/13/24 History Metoprolol Tartrate [Lopressor] 25 mg PO DIRECTED 09/19/17 01/13/24 History metFORMIN HCL [Glucophage] 1,000 mg PO BID 09/19/17 01/13/24 History Pantoprazole [Protonix] 40 mg PO BID 11/06/22 01/13/24 History Acetaminophen-Codeine 300-30mg 1 tab PO Q6H PRN 01/13/24 01/13/24 History [Tylenol w/codeine #3] Atorvastatin [Lipitor] 40 mg PO HS 01/13/24 01/13/24 History Clopidogrel [Plavix] 75 mg PO HS 01/13/24 01/13/24 History Cyanocobalamin (Vitamin B-12) 1,000 mcg PO DAILY 01/13/24 01/13/24 History [Vitamin B-12] Ferrous Sulfate [Feosol] 325 mg PO DAILY 01/13/24 01/13/24 History Magnesium 250 mg PO DAILY 01/13/24 01/13/24 History Pioglitazone [Actos] 15 mg PO HS 01/13/24 01/13/24 History Tresiba (Unknown Strength) 25 - 30 units SQ DIRECTED 01/13/24 01/13/24 History Allergies Allergy/AdvReac Type Severity Reaction Status Date / Time No Known Allergies Allergy Verified 01/12/24 21:42 Physical Examination - Vital Signs Vital Signs: Vital Signs Temp Pulse Pulse Resp BP BP Pulse Ox 01/13/24 15:50 97.9 F 78 16 131/76 100 01/13/24 14:42 97.0 F L 101 H 18 125/69 100 01/13/24 09:25 64 16 150/70 96 01/13/24 05:15 70 13 131/47 96 01/13/24 04:45 69 14 131/61 97 01/13/24 03:15 69 12 130/55 97 01/13/24 02:45 74 14 130/55 96 01/13/24 02:15 77 18 127/81 98 01/13/24 01:45 80 18 137/78 96 01/13/24 01:15 72 15 140/69 97 01/13/24 00:45 82 14 135/69 96 01/13/24 00:15 81 14 138/66 96 01/12/24 23:45 85 18 140/70 95 01/12/24 23:15 78 19 144/77 97 01/12/24 22:54 81 16 148/82 97 01/12/24 22:45 84 14 140/70 98 01/12/24 22:30 84 14 156/80 98 01/12/24 22:15 84 18 129/69 99 01/12/24 22:00 86 21 125/68 95 01/12/24 21:45 85 17 131/68 99 01/12/24 21:30 95 23 146/79 97 01/12/24 20:52 97.6 F 83 18 155/78 99 Intake and Output 01/13/24 01/13/24 01/13/24 06:59 14:59 22:59 Intake Total 240 Balance 240 Intake: Oral 240 Other: Weight 77.111 kg Patient is an elderly female, very pleasant, in no acute distress. Patient is alert awake oriented to time place and person. Speech and language functions are normal. Patient can name and repeat very well. No aphasia or dysarthria. Attention, concentration and fund of knowledge is adequate. On cranial nerve examination, pupils are equal, round and reacting to light, visual dooley are full on confrontation, with no neglect on double simultaneous stimulation. Extraocular muscles are intact with no nystagmus. Face is symmetric, tongue protrudes to the midline. Palatal elevation and sensation normal, hearing and shoulder shrug normal, facial sensation normal. On muscle strength testing, there is no pronator drift and the strength is normal in arms and legs distally and proximally. Deep tendon reflexes are symmetric diminished in the arms and legs and plantars downgoing. Sensory to touch is equal with no neglect on double simultaneous stimulation. Cerebellar function showed no ataxia for [id number] testing. No dysdiadochokinesia. No ataxia for [id number] testing on either side. Tone a nd bulk of muscles normal. Gait deferred.. On general examination, there is no carotid bruit or murmur, S1-S2 audible. Chest is clear on consultation. Abdomen is soft nontender. No organomegaly, bowel sounds present. Peripheral pulses are present. No peripheral edema. Results - Laboratory Findings CBC and BMP: 01/12/24 21:24 01/12/24 21:24 Abnormal Lab Findings: Abnormal Labs 01/12/24 01/12/24 01/13/24 21:24 21:24 15:00 WBC 10.7 H Sodium 130 L Chloride 96 L Glucose 119 H POC Glucose (mg/dL) 153 H 01/13/24 16:16 WBC Sodium Chloride Glucose POC Glucose (mg/dL) 226 H Assessment and Plan Assessment: * Possible transient cerebral ischemia manifesting with pain and blurred vision in the right eye, difficulty speaking with expressive aphasia, lasting for less than 90 minutes. She had 5 such spells in the last 4-1/2 years. * Right ICA stenosis greater than 70% noted on CTA, however cerebral angiography performed * Diabetes * Hypertension * Coronary artery disease with history of cardiac stents * Sleep apnea Plan: * Patient has recurrent episodes of possible TIA. Patient is taking Plavix 75 mg daily. Recommend add aspirin 81 mg daily. Continue dual antiplatelet medications long-term because of recurrent TIA type symptoms. * Patient CTA of head and neck revealed up to 70% stenosis of the proximal right ICA. Patient had a cerebral angiogram performed by Dr. Murillo 11/16/2022 revealing no significant stenosis on the right side. Only 30% left ICA stenosis. Medical management was recommended. * Agree with vascular surgery, just for a follow-up. * Patient also to see cardiology for possible JACKELYN. * Lipid panel with cholesterol 102, LDL 32, HDL 41, triglycerides 145. Continue Lipitor 80 mg daily. * Agree with checking hemoglobin A1c. * Dr. Rich Sifuentes to resume neurology service the morning. Thank you for the consult.
[2024-01-14 06:21] LABS: Glucose,Whole Blood 148 mg/dL (70-110)
--- NOTE | 2024-01-14 10:41 | P.GSCN ---
History of Present Illness Consult date: 01/14/24 Reason for Consult: Carotid stenosis Requesting physician: Varun Hartley History of present illness: This is a pleasant 68-year-old female with a past medical history including diabetes mellitus, coronary artery disease with cardiac stents and previous cardiac arrest, TIA currently on Plavix and aspirin. She had presented to the emergency department Saturday night with complaints of neuro deficits. She reported difficulty with her words, left eye pain and some right facial drooping that lasted about 1 hour and pretty much was resolved before she came to the emergency department. Vascular surgery is familiar with patient as she was here in October 2022 for similar episode where she had undergone a carotid duplex which had reported mild right and moderate left arthrosclerotic calcification of carotid bulbs with less than 50% stenosis of bilateral internal carotid arteries. She also underwent carotid angiography on 11/16/[address] Murillo that reported no evidence of right ICA stenosis and 30% left internal carotid artery stenosis. She had followed up with Dr. Gan in the office however no further intervention was recommended. At the time she was recommended to go on to Brilinta however due to cost she was unable to maintain on Brilinta and went back to her Plavix and Dr. Morrison recommended adding 81 mg aspirin and continue with statin at that time. As part of her workup here she had a CT of the brain which reported stable exam without acute intracranial process. CT angiogram head and neck reported no evidence of significant intracranial arterial vascular stenosis or occlusion. With reported arthrosclerotic disease of proximal internal carotid artery creates stable 70% stenosis. Vascular surgery was consulted for carotid stenosis. Patient currently denies any further focal deficits, no shortness of breath, chest pain, abdominal pain, nausea or vomiting. Review of Systems A 14 point review systems was completed all pertinent positives and negatives as stated in the HPI. Past Medical History Past Medical History: Chest Pain / Angina, CVA/TIA, Diabetes Mellitus, Hyperlipidemia, Hypertension, Myocardial Infarction (ND), Sleep Apnea/CPAP/BIPAP Last Myocardial Infarction Date:: 2006 History of Any Multi-Drug Resistant Organisms: None Reported Past Surgical History: Section, Cholecystectomy, Heart Catheterization With Stent Additional Past Surgical History / Comment(s): 2012 dr wilson repaired/replace a stent Past Anesthesia/Blood Transfusion Reactions: No Reported Reaction Date of Last Stent Placement:: 2012 Past Psychological History: No Psychological Hx Reported Smoking Status: Never smoker Past Alcohol Use History: None Reported Past Drug Use History: None Reported - Past Family History Mother Additional Family Medical History / Comment(s): passed from liver failure. No history of coronary artery disease. Father Additional Family Medical History / Comment(s): passed from kidney failure. No history of coronary artery disease. Sister(s) Family Medical History: No Reported History Brother(s) Family Medical History: No Reported History Daughter(s) Family Medical History: No Reported History Son(s) Additional Family Medical History / Comment(s): both sons have addiction problems, depression and anxiety Medications and Allergies Home Medications Medication Instructions Recorded Confirmed Type Citalopram Hydrobromide [CeleXA] 40 mg PO HS 09/19/17 01/13/24 History Meclizine HCl 25 mg PO DAILY 09/19/17 01/13/24 History Metoprolol Tartrate [Lopressor] 25 mg PO DIRECTED 09/19/17 01/13/24 History metFORMIN HCL [Glucophage] 1,000 mg PO BID 09/19/17 01/13/24 History Pantoprazole [Protonix] 40 mg PO BID 11/06/22 01/13/24 History Acetaminophen-Codeine 300-30mg 1 tab PO Q6H PRN 01/13/24 01/13/24 History [Tylenol w/codeine #3] Atorvastatin [Lipitor] 40 mg PO HS 01/13/24 01/13/24 History Clopidogrel [Plavix] 75 mg PO HS 01/13/24 01/13/24 History Cyanocobalamin (Vitamin B-12) 1,000 mcg PO DAILY 01/13/24 01/13/24 History [Vitamin B-12] Ferrous Sulfate [Feosol] 325 mg PO DAILY 01/13/24 01/13/24 History Magnesium 250 mg PO DAILY 01/13/24 01/13/24 History Pioglitazone [Actos] 15 mg PO HS 01/13/24 01/13/24 History Insulin Degludec [Tresiba 25 - 30 units SQ HS 01/14/24 01/14/24 History Flextouch U-200 Pen] Allergies Allergy/AdvReac Type Severity Reaction Status Date / Time No Known Allergies Allergy Verified 01/12/24 21:42 Surgical - Exam Vital Signs Temp Pulse Resp BP Pulse Ox 97.6 F 83 18 155/78 99 01/12/24 20:52 01/12/24 20:52 01/12/24 20:52 01/12/24 20:52 01/12/24 20:52 General appearance: The patient is alert, oriented, appears in no acute distress. HET: Head is normocephalic and atraumatic. Pupils are equal and reactive. Neck: Supple. No audible bruit. Heart: Regular. Lungs: Equal expansion, normal respiratory effort. Abdomen: Soft, nontender, nondistended. Extremities: Normal skin color and turgor. Palpable bilateral radial and DP pulses. Neurological: No focal deficits. Strength and sensation are grossly intact. Results - Labs 01/12/24 21:24 01/12/24 21:24 Abnormal Lab Results - Last 24 Hours (Table) 01/13/24 01/13/24 01/13/24 Range/Units 11:14 15:00 16:16 POC Glucose (mg/dL) 153 H 226 H (70-110) mg/dL Hemoglobin A1c 8.6 H (<=6.0) % 01/13/24 01/14/24 Range/Units 20:26 06:19 POC Glucose (mg/dL) 262 H 148 H (70-110) mg/dL Hemoglobin A1c (<=6.0) % Diabetes panel 01/13/24 01/13/24 Range/Units 03:39 11:14 Hemoglobin A1c 8.6 H (<=6.0) % Triglycerides 145.00 (0.00-149.00) mg/dL HDL Cholesterol 41.00 (40.00-60.00) mg/dL - Imaging Comments: CT angiogram head and neck: Impression and body of report with discrepancy. Body of report states arthrosclerotic disease of the proximal internal carotid artery creates stable 70% stenosis. Left carotid bifurcation demonstrates no evidence of hemodynamically significant stenosis. Remaining portions of the internal carotid artery demonstrate normal size without significant narrowing. Impression reports no evidence of significant intracranial arterial vascular stenosis or occlusion. Stable exam demonstrating scattered at the carotid disease with up to 70% stenosis of the proximal left internal carotid artery. Brain CT reports stable exam without acute intracranial process Assessment and Plan Assessment: 1. Possible TIA exhibited by left eye pain, right facial droop, and aphasia, now resolved. 2. CT angiogram head and neck with focal narrowing of left internal carotid artery stenosis, independently reviewed by Dr. Gan 3. Discordant findings with carotid duplex showing no hemodynamically significant stenosis bilaterally 4. History of of previous TIAs 5. Coronary artery disease previous cardiac stents 6. Type 2 diabetes mellitus 7. Hyperlipidemia 8. Hypertension Plan: 1. Carotid duplex ordered and reviewed 2. Continue with Plavix, aspirin and statin 3. Possible JACKELYN scheduled for today according to patient 4. Recommend PT, OT and speech therapy 5. Continue with recommendations from neurology 6. CT angiogram head and neck and carotid duplex independently reviewed by Dr. Gan. Believes there is focal narrowing in the left internal carotid artery. Recommends outpatient follow-up and likely will schedule angiogram at that time. Thank you for this consultation, patient is cleared from vascular surgery for discharge. The impression and plan of care has been dictated as directed. I performed a history and examination of this patient, discussed the same with the dictator. I agree with the dictator's note ,documented as a scribe. Any additional findings or plans will be noted.
--- NOTE | 2024-01-14 10:50 | US ---
EXAMINATION TYPE: US carotid duplex BILAT DATE OF EXAM: 01/14/2024 COMPARISON: 11/07/2019 CLINICAL INDICATION: Female, 68 years old with history of possible TIA; TIA TECHNIQUE: Carotid duplex ultrasound examination. Indirect Doppler criteria was utilized. FINDINGS: EXAM MEASUREMENTS: RIGHT: Peak Systolic Velocity (PSV) cm/sec ----- Right CCA: 56 ----- Right ICA: 89.9 ----- Right ECA: 121 ICA/CCA ratio: 1.6 RIGHT: End Diastole cm/sec ----- Right CCA: 12.9 ----- Right ICA: 29.9 ----- Right ECA: 14.4 LEFT: Peak Systolic Velocity (PSV) cm/sec ----- Left CCA: 8.6 ----- Left ICA: 125.8 ----- Left ECA: 100 ICA/CCA ratio: 1.6 LEFT: End Diastole cm/sec ----- Left CCA: 20.8 ----- Left ICA: 38.6 ----- Left ECA: 11.5 VERTEBRALS (direction of flow): Right Vertebral: Antegrade Left Vertebral: Antegrade Rhythm: Normal [employer] AND N[employer]ITION SUPERVISOR NOTES: Bilateral atherosclerotic changes. No significant stenosis seen IMPRESSION: Bilateral atherosclerotic changes with no significant hemodynamic stenosis. Criteria for Assigning % of Stenosis / Diameter reduction (Estimation based on the indirect measurements of the internal carotid artery velocities (ICA PSV). 1. Normal (no stenosis)=ICA PSV < 125 cm/s: ratio < 2.0: ICA EDV<40 cm/s. 2. Less than 50% stenosis=ICA PSV < 125 cm/s: ratio < 2.0: ICA EDV<40 cm/s. 3. 50 to 69% stenosis=ICA PSV of 125 to 230 cm/s: ration 2.0 ? 4.0: ICA EDV 40-100 cm/s. 4. Greater than 70% stenosis to near occlusion= ICA PSV > 230 cm/s: ratio > 4.0: ICA EDV > 100 cm/s. 5. Near occlusion= ICA PSV velocities may be low or undetectable: variable ratio and ICA EDV. 6. Total occlusion=unable to detect flow.
[2024-01-14 12:07] LABS: Glucose,Whole Blood 170 mg/dL (70-110)
[2024-01-14] MEDS: BENZOCAINE SPRAY 1 CAN TOPICAL ONE (13:07)
[2024-01-14] MEDS: fentaNYL (PF) 50 MCG/1 ML VIAL IVP ONE (13:12)
[2024-01-14] MEDS: MIDAZOLAM 2 MG/2 ML VIAL IVP ONE ×2 (13:12)
[2024-01-14] MEDS: SODIUM CHLORIDE 0.9% 500 ML 500 ML IV ONE (13:12)
--- NOTE | 2024-01-14 13:21 | P.TEE ---
Description of Procedure(s): Procedure performed: Transesophageal Echocardiogram with color flow doppler, pulsed wave doppler and continuous wave doppler, moderate conscious sedation Moderate conscious sedation: Moderate conscious sedation was supplied with direct supervision of myself using Versed and Fentanyl. Complications: none Indications: Stroke PROCEDURE: After the risks, benefits and alternatives of the above mentioned procedure was explained in detail with the patient, informed consent was obtained. Patient was brought to the lab in a fasting state. Patient was given IV Versed and Fentanyl for sedation. The throat was sprayed with Hurricane to anesthetize the throat. A lubricated Omni probe was then introduced into the esophagus and stomach and multiple views were obtained. 2D echo with color flow doppler, pulsed wave doppler and continuous wave doppler was utilized. Agitated saline bubbles were injected to assess for any intra-atrial shunt. The probe was then removed. Patient tolerated the procedure well. Patient was transferred to the post procedure area in stable and satisfactory condition. FINDINGS: 1. The aortic valve is tricuspid with normal function. There is mild aortic atherosclerosis just above the right coronary cusp. 2. The mitral valve appears be normal with mild to moderate mitral regurgitation. 3. Tricuspid valve normal with trace tricuspid regurgitation. 4. The interatrial septum is intact. No evidence of PFO. 5. Left atrial appendage is free of clot. 6. Left ventricular ejection fraction 55% 7. Mild to moderate left atrial dilation
[2024-01-14] MEDS: fentaNYL (PF) 50 MCG/ML 2 ML AMP ONE (14:48)
[2024-01-14 16:21] LABS: Glucose,Whole Blood 160 mg/dL (70-110)
[2024-01-14 20:21] LABS: Glucose,Whole Blood 294 mg/dL (70-110)
--- NOTE | 2024-01-14 23:05 | P.PN ---
Subjective Progress Note Date: 01/14/24 HISTORY OF PRESENT ILLNESS: 68-year-old woman my office patient with multimedical problems known to have history of atherosclerotic heart disease, type 2 diabetes, previous history of TIA/CVA, history of hypertension hyperlipidemia hospitalized last for CVA about a year ago, she was in [place] 2 weeks ago developed to have severe pain behind her left eye along with dysphagia and slight weakness and numbness in the right side of her body she ended up being hospitalized for 3 days had carotid ultrasound, echocardiogram, MRI of the brain and seen neuro along with hospitalist service and testing were completed as a finding of TIA versus she was placed on Plavix and told to follow with her primary care. Last night patient was at home with her when developed to have slightly droopy face to the right side developed to have severe pressure and pain behind the left eye and developed to have severe expressive aphasia could not express herself for over an hour was associated with slight numbness and weakness in the right side of her body. She brought by her to the emergency department late in the evening. Ended up going for CAT scan of the brain did not show any major abnormality, CTA showed over 70% blockage of the right internal carotid with consistent with the same finding from a year ago. Her laboratory value did not show any major abnormality blood sugar has been better controlled. EKG did not show any sign of arrhythmia or A-fib. Patient be admitted to the hospital will consult neurology along with cardiology for possible transesophageal echocardiogram also try to get copy of the report from [place] from 2 weeks ago. 01/14/2024: Patient scheduled to go for transesophageal echocardiogram today to see if there is any evidence space for thrombus can be causing her recurrent TIA and stroke. Furthermore patient might require longer-term heart monitor to clear again any evidence-based for possibility of nonsustained A-fib. Also patient will be seen by vascular which can review CTA believe there is a slight left internal carotid narrowing area recommending outpatient follow-up with vascular in the meanwhile they agree for management recommended by neurology which is the dual antiplatelet agent along with aspirin and higher dose of statin also recommending transesophageal echocardiogram and possible longer heart monitor including possibility of loop recorder monitor or 30 days monitor to exclude the possibility of nonsustained A-fib might be causing a thrombus causing her TIA. REVIEW OF SYSTEMS: CONSTITUTIONAL: Well-developed no acute respiratory distress. EYES: No icterus sclerae, no conjunctivitis. EARS, NOSE, MOUTH, THROAT, and FACE: No sore throat, lymphadenopathy, carotid bruits or deformity. RESPIRATORY: No SOB cough or wheezes. CARDIOVASCULAR: No CP, Palpitation, PND, Orthopnea, or angina. GASTROINTESTINAL: No Abd pain, Nausea or vomiting, no Diarrhea or constipation, No GI Bleed, no distention or masses. GENITOURINARY: Negative for Hematuria or UTI, no kidney stones. INTEGUMENT/BREAST: Negative for any muscular injury with mild osteoarthritis.. HEMATOLOGIC/LYMPHATIC: Negative for bleed or purpura. MUSCULOSKELTAL: Negative for Myalgia or arthralgia. NEURLOGICAL: No LOC, Sz or syncope, blurred vision dizziness or abnormality.. BEHAVIORAL/PSYCH: Negative. ENDOCRINE: Negative. PHYSICAL EXAMINATION: General Appearance: Alert, cooperative, no distress, appears stated age. Neck HEENT: Supple, no lymphadenopathy, no thyroid enlargement, no carotid bruits. Lungs: Clear to auscultation without crackles or wheezes no rhonchi, no deformity. Chest Wall: Chest wall normal expansion with deep inspiration no tenderness and no deformity was found on exam, no costochondral pain or discomfort. Heart: Regular rate and rhythm, S1, S2 normal, no murmur, rub or gallop. Back: Symmetric, no curvature, ROM normal, no CVA tenderness. Abdomen: Soft, non-tender, bowel sounds active all four quadrants, no masses, no organomegaly. Extremities: Extremities normal, atraumatic, no cyanosis or edema. Pulses: 2+ and symmetric. Skin: Skin color, texture, tugor normal, no rashes or lesions. Neurologic: Alert oriented x3 cranial nerves II through XII intact, no motor deficit, no abnormal balance or gait. No drift or any weakness in 1 side of her body compared to the other and her speech is very normal at this point. ASSESSMENT AND PLAN: _CVA/TIA: Her symptoms are reversed consistent with TIA mostly since this is happened 2 weeks ago in [place] had the same repeat event last night not clear if this can be some sort of ocular migraine but if that is the case should not be associated with droopy face. Will consult neurology, consult cardiology for transesophageal echocardiogram, continue to watch patient on heart monitor to make sure there is no atrial fibrillation can explain thrombus might have caused a TIA at this time. Patient be going for transesophageal echocardiogram also will be seen neurology and vascular will continue antiplatelet agent continue further research to make sure patient does not have any nonsustained A-fib might require loop recorder monitor longer-term heart monitor with cardiology. _PAD and severe stenosis of the right internal carotid artery: Will consult vascular for possible need for surgery. Vascular believe there is a slight narrowing of the left internal carotid as well no need for intervention yet but might require follow-up with vascular on more regular basis. _Advanced atherosclerotic heart disease with cardiomyopathy: Has been seen cardiology on more regular basis remain on atorvastatin, aspirin, Brilinta, metoprolol and should be on ARB. _Type 2 diabetes: Remain on Trulicity, Actos, metformin and Tresiba 30 unit daily continue Accu-Chek with sliding scale coverage and resume medication. _Iron deficiency anemia: Her test from 2 weeks ago was consistent with mild anemia, patient gastroenterology testing are up-to-date last colonoscopy from 3 years ago with polyp she was supposed to have it in 2 more years. CBC today does not show any sign of anemia. _Hypertension: Has been well-controlled on metoprolol the patient was previously on a small low-dose of ARB which is losartan or valsartan. _Hyperlipidemia: Remain on atorvastatin 80 mg daily try to keep her LDL below 70. _Severe GERD: Remain on pantoprazole 40 mg a day resume medication. _Mild peripheral neuropathy mostly diabetic patient refused being on medication at this point still have mild symptoms. _Mild IBS: Most likely the effect of metformin and pioglitazone patient still using antidiarrhea medication every so often. _Anticoagulation treatment and management: Remain on Brilinta for now whether need to be switched to Plavix or not to be determined. Discussion: Pending transesophageal echocardiogram and possibility of requiring need loop recorder monitor, also waiting for final recommendation with vascular will continue antiplatelet agent advancing continue PT OT the patient is doing well hopefully might be discharged tomorrow. Objective - Vital Signs Vital signs: Vital Signs Temp 98.2 F 01/13/24 20:00 Pulse 61 01/14/24 04:00 Resp 18 01/14/24 04:00 BP 124/75 01/14/24 04:00 Pulse Ox 98 01/14/24 04:00 FiO2 Intake & Output 01/13/24 01/13/24 01/14/24 06:59 18:59 06:59 Intake Total 240 Balance 240 Weight 77.111 kg 77.111 kg Intake: Oral 240 Other: Voiding Method Toilet # Voids 1 - Labs CBC & Chem 7: 01/12/24 21:24 01/12/24 21:24 Labs: Abnormal Lab Results - Last 24 Hours (Table) 01/13/24 01/13/24 01/13/24 Range/Units 11:14 15:00 16:16 POC Glucose (mg/dL) 153 H 226 H (70-110) mg/dL Hemoglobin A1c 8.6 H (<=6.0) % 01/13/24 01/14/24 Range/Units 20:26 06:19 POC Glucose (mg/dL) 262 H 148 H (70-110) mg/dL Hemoglobin A1c (<=6.0) %
--- NOTE | 2024-01-14 23:43 | CONS ---
CONSULTATION REASON FOR CONSULTATION: Consult is for transesophageal echo. HISTORY OF PRESENT ILLNESS: This is a 68-year-old lady, who sees Dr. Hartley on a regular basis. She apparently has a history of TIA, on and off multiple episodes, and 2 weeks ago, she developed severe pain behind her left eye, dysphagia, slight weakness, numbness. MRI revealed that she had a TIA, was placed on Plavix and advised to follow with her primary care physician. She was also seen by Neurology and they have requested a transesophageal echo to be performed. Carotid Doppler study from today revealed no hemodynamically significant lesions in the internal carotid arteries with vertebral flow in the antegrade direction bilaterally. She also had a CT angiogram that was performed on the , which revealed no significant intracranial disease. 70% of proximal left internal carotid artery stenosis. The brain CT that was also performed on the revealed no significant abnormalities. However, given her clinical picture, even though she is in sinus rhythm because of concern that this may be intracardiac thrombus, she was advised for transesophageal echo. I have requested Dr. Murillo to perform the procedure. I explained the risks, benefits, rationale to the patient. PHYSICAL EXAMINATION: VITAL SIGNS: Table. Her heart rate is in the 70s, sinus. Blood pressure is 118/70. NECK: No JVD. CARDIAC: S1, S2 heard normally. LUNGS: Clear. ABDOMEN: Unchanged. LOWER EXTREMITIES: Unchanged. The patient remains in sinus rhythm. Hemodynamically stable. Neurologically, her symptoms have resolved. She will have transesophageal echo today and based on findings, we will make recommendations. MMODL / IJN: [id number] /
[2024-01-15 06:24] LABS: Glucose,Whole Blood 179 mg/dL (70-110)
[2024-01-15 10:00] VITALS: RESP 18; TEMP 98
--- NOTE | 2024-01-15 11:05 | P.PN ---
Subjective Progress Note Date: 01/15/24 Principal diagnosis: Carotid stenosis Patient seen and examined today as a follow-up. She denies any focal deficits. She underwent JACKELYN yesterday which was normal. She states that Dr. Hartley would like her to get a loop recorder before she is discharged home. Objective - Vital Signs Vital signs: Vital Signs Temp 97.6 F 01/14/24 20:00 Pulse 53 L 01/15/24 04:00 Resp 16 01/15/24 04:00 BP 122/61 01/15/24 04:00 Pulse Ox 99 01/15/24 04:00 FiO2 Intake & Output 01/14/24 01/15/24 01/15/24 18:59 06:59 18:59 Intake Total 380 Balance 380 Intake: IV 200 Oral 180 Other: Voiding Method Toilet # Voids 1 2 - Exam General appearance: The patient is alert, oriented, appears in no acute distress. HET: Head is normocephalic and atraumatic. Pupils are equal and reactive. Neck: Supple. Heart: Regular. Lungs: Equal expansion, normal respiratory effort. Abdomen: Soft, nontender, nondistended. Extremities: Normal skin color and turgor. Neurological: No focal deficits. Strength and sensation are grossly intact. - Labs CBC & Chem 7: 01/12/24 21:24 01/12/24 21:24 Labs: Abnormal Lab Results - Last 24 Hours (Table) 01/14/24 01/14/24 01/14/24 Range/Units 12:00 16:19 20:18 POC Glucose (mg/dL) 170 H 160 H 294 H (70-110) mg/dL 01/15/24 Range/Units 06:10 POC Glucose (mg/dL) 179 H (70-110) mg/dL Assessment and Plan Assessment: 1. Possible TIA exhibited by left eye pain, right facial droop, and aphasia, now resolved. 2. CT angiogram head and neck with focal narrowing of left internal carotid artery stenosis, independently reviewed by Dr. Gan 3. Discordant findings with carotid duplex showing no hemodynamically significant stenosis bilaterally 4. History of of previous TIAs 5. Coronary artery disease previous cardiac stents 6. Type 2 diabetes mellitus 7. Hyperlipidemia 8. Hypertension Plan: 1. Carotid duplex ordered and reviewed 2. Continue with Plavix, aspirin and statin 3. Possible JACKELYN scheduled for today according to patient 4. Recommend PT, OT and speech therapy 5. Continue with recommendations from neurology 6. CT angiogram head and neck and carotid duplex independently reviewed by Dr. Gan. Believes there is focal narrowing in the left internal carotid artery. Recommends outpatient follow-up and likely will schedule angiogram at that time. Thank you for this consultation, patient is cleared from vascular surgery for discharge. The impression and plan of care has been dictated as directed. I performed a history and examination of this patient, discussed the same with the dictator. I agree with the dictator's note ,documented as a scribe. Any additional findings or plans will be noted.
[2024-01-15 13:05] VITALS: BP 115/66; PULSE 77
--- NOTE | 2024-01-16 06:29 | PN ---
PROGRESS NOTE Mrs. Hameed had a TIA like picture, had a transesophageal echo that was unremarkable. I discussed with Dr. Hartley. I am suggesting that we will do an event monitor for 2 weeks. If we do not find anything on event monitor, then we will do a loop recorder. I explained this to the patient. Vital signs are stable. Blood pressure control is fair. S1, S2 heard normally. Lungs are clear. Abdomen and lower extremity exam unremarkable. The patient can be discharged today. MMODL / IJN: [id number] /
--- NOTE | 2024-01-22 22:51 | P.DS ---
Providers Date of admission: 01/12/24 23:47 Attending physician: Varun Hartley Consults: 01/12/24 23:43 Consult Physician Routine Consulting Provider: Juan Jose Kirby Consult Reason/Comments: TIA Do you want consulting provider notified?: Yes 01/13/24 10:13 Consult Physician Routine Consulting Provider: Rachna Yip Consult Reason/Comments: Carotid Stenosis Do you want consulting provider notified?: Yes 01/13/24 10:16 Consult Physician Routine Consulting Provider: Danisha Hsu Consult Reason/Comments: CVA will need JACKELYN Do you want consulting provider notified?: Yes Primary care physician: Varun Naeem [facility] Course: HISTORY OF PRESENT ILLNESS: 68-year-old woman my office patient with multimedical problems known to have history of atherosclerotic heart disease, type 2 diabetes, previous history of TIA/CVA, history of hypertension hyperlipidemia hospitalized last for CVA about a year ago, she was in [place] 2 weeks ago developed to have severe pain behind her left eye along with dysphagia and slight weakness and numbness in the right side of her body she ended up being hospitalized for 3 days had carotid ultrasound, echocardiogram, MRI of the brain and seen neuro along with hospitalist service and testing were completed as a finding of TIA versus she was placed on Plavix and told to follow with her primary care. Last night patient was at home with her when developed to have slightly droopy face to the right side developed to have severe pressure and pain behind the left eye and developed to have severe expressive aphasia could not express herself for over an hour was associated with slight numbness and weakness in the right side of her body. She brought by her to the emergency department late in the evening. Ended up going for CAT scan of the brain did not show any major abnormality, CTA showed over 70% blockage of the right internal carotid with consistent with the same finding from a year ago. Her laboratory value did not show any major abnormality blood sugar has been better controlled. EKG did not show any sign of arrhythmia or A-fib. Patient be admitted to the hospital will consult neurology along with cardiology for possible transesophageal echocardiogram also try to get copy of the report from [place] from 2 weeks ago. 01/14/2024: Patient scheduled to go for transesophageal echocardiogram today to see if there is any evidence space for thrombus can be causing her recurrent TIA and stroke. Furthermore patient might require longer-term heart monitor to clear again any evidence-based for possibility of nonsustained A-fib. Also patient will be seen by vascular which can review CTA believe there is a slight left internal carotid narrowing area recommending outpatient follow-up with [facility] in the meanwhile they agree for management recommended by neurology which is the dual antiplatelet agent along with aspirin and higher dose of statin also recommending transesophageal echocardiogram and possible longer heart monitor including possibility of loop recorder monitor or 30 days monitor to exclude the possibility of nonsustained A-fib might be causing a thrombus causing her TIA. REVIEW OF SYSTEMS: CONSTITUTIONAL: Well-developed no acute respiratory distress. EYES: No icterus sclerae, no conjunctivitis. EARS, NOSE, MOUTH, THROAT, and FACE: No sore throat, lymphadenopathy, carotid bruits or deformity. RESPIRATORY: No SOB cough or wheezes. CARDIOVASCULAR: No CP, Palpitation, PND, Orthopnea, or angina. GASTROINTESTINAL: No Abd pain, Nausea or vomiting, no Diarrhea or constipation, No GI Bleed, no distention or masses. GENITOURINARY: Negative for Hematuria or UTI, no kidney stones. INTEGUMENT/BREAST: Negative for any muscular injury with mild osteoarthritis.. HEMATOLOGIC/LYMPHATIC: Negative for bleed or purpura. MUSCULOSKELTAL: Negative for Myalgia or arthralgia. NEURLOGICAL: No LOC, Sz or syncope, blurred vision dizziness or abnormality.. BEHAVIORAL/PSYCH: Negative. ENDOCRINE: Negative. PHYSICAL EXAMINATION: General Appearance: Alert, cooperative, no distress, appears stated age. Neck HEENT: Supple, no lymphadenopathy, no thyroid enlargement, no carotid bruits. Lungs: Clear to auscultation without crackles or wheezes no rhonchi, no deformity. Chest Wall: Chest wall normal expansion with deep inspiration no tenderness and no deformity was found on exam, no costochondral pain or discomfort. Heart: Regular rate and rhythm, S1, S2 normal, no murmur, rub or gallop. Back: Symmetric, no curvature, ROM normal, no CVA tenderness. Abdomen: Soft, non-tender, bowel sounds active all four quadrants, no masses, no organomegaly. Extremities: Extremities normal, atraumatic, no cyanosis or edema. Pulses: 2+ and symmetric. Skin: Skin color, texture, tugor normal, no rashes or lesions. Neurologic: Alert oriented x3 cranial nerves II through XII intact, no motor deficit, no abnormal balance or gait. No drift or any weakness in 1 side of her body compared to the other and her speech is very normal at this point. ASSESSMENT AND PLAN: _CVA/TIA: Her symptoms are reversed consistent with TIA mostly since this is happened 2 weeks ago in [place] had the same repeat event last night not clear if this can be some sort of ocular migraine but if that is the case should not be associated with droopy face. Will consult neurology, consult cardiology for transesophageal echocardiogram, continue to watch patient on heart monitor to make sure there is no atrial fibrillation can explain thrombus might have caused a TIA at this time. Patient be going for transesophageal echocardiogram also will be seen neurology and vascular will continue antiplatelet agent continue further research to make sure patient does not have any nonsustained A-fib might require loop recorder monitor longer-term heart monitor with cardiology. _PAD and severe stenosis of the right internal carotid artery: Will consult vascular for possible need for surgery. Vascular believe there is a slight narrowing of the left internal carotid as well no need for intervention yet but might require follow-up with vascular on more regular basis. _Advanced atherosclerotic heart disease with cardiomyopathy: Has been seen cardiology on more regular basis remain on atorvastatin, aspirin, Brilinta, metoprolol and should be on ARB. _Type 2 diabetes: Remain on Trulicity, Actos, metformin and Tresiba 30 unit daily continue Accu-Chek with sliding scale coverage and resume medication. _Iron deficiency anemia: Her test from 2 weeks ago was consistent with mild anemia, patient gastroenterology testing are up-to-date last colonoscopy from 3 years ago with polyp she was supposed to have it in 2 more years. CBC today does not show any sign of anemia. _Hypertension: Has been well-controlled on metoprolol the patient was previously on a small low-dose of ARB which is losartan or valsartan. _Hyperlipidemia: Remain on atorvastatin 80 mg daily try to keep her LDL below 70. _Severe GERD: Remain on pantoprazole 40 mg a day resume medication. _Mild peripheral neuropathy mostly diabetic patient refused being on medication at this point still have mild symptoms. _Mild IBS: Most likely the effect of metformin and pioglitazone patient still using antidiarrhea medication every so often. _Anticoagulation treatment and management: Remain on Brilinta for now whether need to be switched to Plavix or not to be determined. Discussion: Plus esophageal echocardiogram failed to show any PFO or any thrombus patient ended up seeing cardiology and having loop recorder monitor placed. Hospital course:Patient was admitted to the hospital on 01/13/2024 with CVA/TIA and the second episode within 2 weeks ended up having slight droopy face with slight slurred speech along with ocular headache and discomfort. Also had quite a bit weakness and numbness on the right side. Symptoms are reversed to some degree with Surgery and for any finding consistent with explanation to why this event had happened, patient was seen neurology and agree with the dual antiplatelet agent along with aspirin initially less for from the reason to do longer-term anticoagulation with Eliquis. Patient ended up seeing cardiology and try to find any Nonsustained A-fib had transesophageal echocardiogram failed to show any PFO or any thrombus can explain his CVA. As a conclusion decided to have patient have loop recorder monitor and when seen in the office will extend the antiplatelet agent for now while watching the loop recorder monitor for any A-fib or any abnormality might require longer term anticoagulation with Novel agent. Patient is doing well with PT OT been Independent she will be discharged home to return to the office in few days and provide see neurology in the next week or so. Time spent in discharge patient was over 35 minutes. Patient Condition at Discharge: Serious Plan - Discharge Summary Discharge Rx Participant: No New Discharge Prescriptions: New Docusate [Colace] 100 mg PO Q8HR cap Dulaglutide [Trulicity] 3 mg SQ BARNARD Atorvastatin [Lipitor] 80 mg PO DAILY #90 tab amLODIPine [Norvasc] 5 mg PO DAILY #60 tab Pioglitazone [Actos] 30 mg PO HS #60 tab Aspirin 81 mg PO DAILY tab Continue metFORMIN HCL [Glucophage] 1,000 mg PO BID Metoprolol Tartrate [Lopressor] 25 mg PO BID Citalopram Hydrobromide [CeleXA] 40 mg PO HS Meclizine HCl 25 mg PO DAILY Pantoprazole [Protonix] 40 mg PO BID Ferrous Sulfate [Iron (65 MG Elemental)] 325 mg PO DAILY Acetaminophen-Codeine 300-30mg [Tylenol w/codeine #3] 1 tab PO Q6H PRN PRN Reason: Pain Cyanocobalamin (Vitamin B-12) [Vitamin B-12] 1,000 mcg PO DAILY Magnesium 250 mg PO DAILY Clopidogrel [Plavix] 75 mg PO HS Insulin Degludec [Tresiba Flextouch U-200 Pen] 25 - 30 units SQ HS Discontinued Pioglitazone [Actos] 15 mg PO HS Atorvastatin [Lipitor] 40 mg PO HS Discharge Medication List Citalopram Hydrobromide [CeleXA] 40 mg PO HS 09/19/17 [History] Meclizine HCl 25 mg PO DAILY 09/19/17 [History] Metoprolol Tartrate [Lopressor] 25 mg PO BID 09/19/17 [History] metFORMIN HCL [Glucophage] 1,000 mg PO BID 09/19/17 [History] Pantoprazole [Protonix] 40 mg PO BID 11/06/22 [History] Acetaminophen-Codeine 300-30mg [Tylenol w/codeine #3] 1 tab PO Q6H PRN 01/13/24 [History] Clopidogrel [Plavix] 75 mg PO HS 01/13/24 [History] Cyanocobalamin (Vitamin B-12) [Vitamin B-12] 1,000 mcg PO DAILY 01/13/24 [History] Ferrous Sulfate [Iron (65 MG Elemental)] 325 mg PO DAILY 01/13/24 [History] Magnesium 250 mg PO DAILY 01/13/24 [History] Insulin Degludec [Tresiba Flextouch U-200 Pen] 25 - 30 units SQ HS 01/14/24 [History] Aspirin 81 mg PO DAILY tab 01/15/24 [Rx] Atorvastatin [Lipitor] 80 mg PO DAILY #90 tab 01/15/24 [Rx] Docusate [Colace] 100 mg PO Q8HR cap 01/15/24 [Rx] Dulaglutide [Trulicity] 3 mg SQ BARNARD 01/15/24 [Rx] Pioglitazone [Actos] 30 mg PO HS #60 tab 01/15/24 [Rx] amLODIPine [Norvasc] 5 mg PO DAILY #60 tab 01/15/24 [Rx] Follow up Appointment(s)/Referral(s): Gris Cotto MD [STAFF PHYSICIAN] - 01/30/24 2:45 pm Diomedes Gan DO [STAFF PHYSICIAN] - 01/22/24 8:45 am Varun Hartley MD [Primary Care Provider] - 1-2 days Patient Instructions/Handouts: Transient Ischemic Attack (DC), Transesophageal Echocardiogram (DC) Discharge Disposition: HOME SELF-CARE
== END 2024-01-15 13:35 | disposition home or self-care (01) | DRG 69 ==
LOC: EC 20:45 → 3SCARD 23:47
PROVIDERS: ADMIT Internal Medicine Geriatric Medicine; ATTEND Internal Medicine Geriatric Medicine
PROC: B246ZZ4 Ultrasonography of Right and Left Heart, Transesophageal (ICD-10-PCS; principal; 2024-01-14 12:30)
DX: G45.9 Transient cerebral ischemic attack, unspecified (principal); I42.9 Cardiomyopathy, unspecified; R47.01 Aphasia; E11.42 Type 2 diabetes mellitus with diabetic polyneuropathy; E11.51 Type 2 diabetes mellitus with diabetic peripheral angiopathy without gangrene; D50.9 Iron deficiency anemia, unspecified; I10 Essential (primary) hypertension; I65.21 Occlusion and stenosis of right carotid artery; Z79.4 Long term (current) use of insulin; Z28.310 Unvaccinated for COVID-19; E78.5 Hyperlipidemia, unspecified; Z86.74 Personal history of sudden cardiac arrest; K21.9 Gastro-esophageal reflux disease without esophagitis; I25.2 Old myocardial infarction; I25.10 Atherosclerotic heart disease of native coronary artery without angina pectoris; K58.9 Irritable bowel syndrome, unspecified; R53.1 Weakness; G47.30 Sleep apnea, unspecified; H57.12 Ocular pain, left eye; R13.10 Dysphagia, unspecified; Z79.02 Long term (current) use of antithrombotics/antiplatelets; Z79.84 Long term (current) use of oral hypoglycemic drugs; Z79.899 Other long term (current) drug therapy; Z95.5 Presence of coronary angioplasty implant and graft; Z86.73 Personal history of transient ischemic attack (TIA), and cerebral infarction without residual deficits
CPT/HCPCS: 36415; 70450; 70496; 70498; 71046; 80053; 80061; 82550; 83036; 84484; 85025; 85610; 85730; 93005; 93270; 93312; 93320; 93325; 93880; 99291

== ENCOUNTER 2024-10-23 00:43 | Observation (INO) | payer MEDICARE ==
--- NOTE | 2024-10-23 01:05 | ED ---
General Adult HPI - General Chief complaint: Chest Pain Stated complaint: Chest pain Time Seen by Provider: 10/23/24 01:00 Source: patient Mode of arrival: ambulatory - History of Present Illness Initial comments: Patient is a 69-year-old female past medical history of CAD status post stenting, prior TIA, hypertension presenting today for chest pain. Patient states about the day today she has had left-sided upper chest pressure and this evening it radiated down to her left breast. She states with her prior heart attack she had similar pressure radiating into both breasts. She took 1 sublingual nitroglycerin about 1 hour prior to arrival without relief of pain. Pain did at 1 point radiate to the left shoulder however this has since resolved. Did began having a headache after sublingual nitro. She denies any fevers, chills, cough, hemoptysis, diaphoresis, nausea, vomiting, abdominal pain, new numbness or weakness, changes in vision, slurred speech, lower extremity swelling. Her health underwriter is Dr. Wilson. - Related Data Home Medications Medication Instructions Recorded Confirmed Citalopram Hydrobromide [CeleXA] 40 mg PO HS 09/19/17 10/23/24 Meclizine HCl 25 mg PO DAILY 09/19/17 10/23/24 Metoprolol Tartrate [Lopressor] 25 mg PO BID 09/19/17 10/23/24 metFORMIN HCL [Glucophage] 1,000 mg PO BID 09/19/17 10/23/24 Pantoprazole [Protonix] 40 mg PO BID 11/06/22 10/23/24 Clopidogrel [Plavix] 75 mg PO HS 01/13/24 10/23/24 Insulin Degludec [Tresiba 30 units SQ HS 01/14/24 10/23/24 Flextouch U-200 Pen] Atorvastatin Calcium [Lipitor] 40 mg PO HS 10/23/24 10/23/24 Pioglitazone [Actos] 15 mg PO HS 10/23/24 10/23/24 Semaglutide [Ozempic] 1 mg SQ BARNARD 10/23/24 10/23/24 amLODIPine [Norvasc] 5 mg PO HS 10/23/24 10/23/24 Previous Rx's Medication Instructions Recorded Losartan [Cozaar] 12.5 mg PO DAILY #30 tab 10/24/24 Allergies Allergy/AdvReac Type Severity Reaction Status Date / Time No Known Allergies Allergy Verified 10/23/24 07:32 Review of Systems ROS Statement: Those systems with pertinent positive or pertinent negative responses have been documented in the HPI. ROS Other: All systems not noted in ROS Statement are negative. Constitutional: Denies: fever, chills Respiratory: Denies: cough, dyspnea, hemoptysis Cardiovascular: Reports: chest pain. Denies: palpitations, edema Gastrointestinal: Denies: abdominal pain, nausea, vomiting Past Medical History Past Medical History: Chest Pain / Angina, CVA/TIA, Diabetes Mellitus, Hyperlipidemia, Hypertension, Myocardial Infarction ([place]), Sleep Apnea/CPAP/BIPAP Last Myocardial Infarction Date:: 2006 History of Any Multi-Drug Resistant Organisms: None Reported Past Surgical History: Section, Cholecystectomy, Heart Catheterization With Stent Additional Past Surgical History / Comment(s): 2012 dr wilson repaired/replace a stent Past Anesthesia/Blood Transfusion Reactions: No Reported Reaction Date of Last Stent Placement:: 2012 Past Psychological History: No Psychological Hx Reported Smoking Status: Never smoker Past Alcohol Use History: None Reported Past Drug Use History: None Reported - Past Family History Mother Additional Family Medical History / Comment(s): passed from liver failure. No history of coronary artery disease. Father Additional Family Medical History / Comment(s): passed from kidney failure. No history of coronary artery disease. Sister(s) Family Medical History: No Reported History Brother(s) Family Medical History: No Reported History Daughter(s) Family Medical History: No Reported History Son(s) Additional Family Medical History / Comment(s): both sons have addiction problems, depression and anxiety General Exam - General Exam Comments Initial Comments: PE: CONSTITUTIONAL: No apparent distress, well appearing SKIN: Warm, dry, no jaundice, hives or petechiae EYES: Pupils are equally round, extraocular movements intact without nystagmus, clear conjunctiva, non-icteric sclera HENT: Normocephalic, atraumatic, moist mucus membranes, oropharynx clear without exudates NECK: , Full range of motion, normal appearance PULMONARY: Clear to auscultation without wheezes, rhonchi, or rales, normal excursion, no accessory muscle use and no stridor CARDIOVASCULAR: Regular rate, rhythm, normal S1 and S2. No appreciated murmurs, rubs or gallops. Strong radial pulses with intact distal perfusion. No lower extremity edema GASTROINTESTINAL: Soft, active bowel sounds throughout, non-tender, non- distended, no palpable masses, no rebound or guarding. No hepatosplenomegaly GENITOURINARY: MUSCULOSKELETAL: Extremities have no gross deformity, no edema, redness, or swelling. No calf swelling NEUROLOGIC:_a/o x 3, GCS 15, normal mentation and speech. Moves all extremities x 4 without motor or sensory deficit PSYCHIATRIC:_normal mood and affect, thought process is clear and linear Course Vital Signs 10/23/24 10/23/24 10/23/24 00:56 02:15 03:51 Temperature 98.7 F Pulse Rate 65 64 68 Respiratory 16 16 16 Rate Blood Pressure 160/75 121/76 113/56 O2 Sat by Pulse 98 99 97 Oximetry 10/23/24 10/23/24 10/23/24 05:39 09:00 13:00 Temperature 98.2 F 98.0 F 98.0 F Pulse Rate 67 61 80 Respiratory 16 16 18 Rate Blood Pressure 100/53 116/69 116/65 O2 Sat by Pulse 96 98 97 Oximetry 10/23/24 10/23/24 10/23/24 14:15 16:45 17:20 Temperature 98.0 F 97.8 F Pulse Rate 71 68 71 Respiratory 16 14 16 Rate Blood Pressure 132/75 113/64 O2 Sat by Pulse 97 98 Oximetry 10/23/24 10/23/24 10/23/24 18:35 19:28 20:17 Temperature 98.0 F Pulse Rate 65 62 66 Respiratory 16 18 16 Rate Blood Pressure 124/69 142/76 O2 Sat by Pulse 97 98 97 Oximetry 10/23/24 10/24/24 10/24/24 23:02 01:15 04:50 Temperature 97.9 F 97.8 F Pulse Rate 62 69 86 Respiratory 16 16 16 Rate Blood Pressure 147/66 142/67 133/76 O2 Sat by Pulse 98 98 99 Oximetry 10/24/24 10/24/24 09:01 13:46 Temperature 97.9 F Pulse Rate 70 58 L Respiratory 15 18 Rate Blood Pressure 127/85 111/76 O2 Sat by Pulse 98 99 Oximetry EKG Findings - EKG Comments: EKG Findings:: Sinus bradycardia, rate 58 bpm OK interval 156 ms QRS duration 89 ms QT/QTc 431/420 ms, normal axis, no ST elevations or depressions, T wave flattening lead IIICompared to EKG performed on 01/12/2024, aside from T wave flattening in lead III, and now upright T waves in aVL no significant changes from prior Medical Decision Making - Medical Decision Making Was pt. sent in by a medical professional or institution ([facility] Nelson, JANITORIAL MANAGER, urgent care, hospital, or half-way...) When possible be specific @ -No Did you speak to anyone other than the patient for history (EMS, parent, family, police, friend...)? What history was obtained from this source @ -No Did you review nursing and triage notes (agree or disagree)? Why? @ -I reviewed with nursing and triage notes- however pt did have relief of cp after nitro Were old charts reviewed (outside hosp., previous admission, EMS record, old EKG, old radiological studies, urgent care reports/EKG's, half-way records)? Report findings @ -Medical records reviewed-reviewed echo report from January 13, 2024, EF 55% with mild to moderate left atrial dilation Differential Diagnosis (chest pain, altered mental status, abdominal pain women, abdominal pain men, vaginal bleeding, weakness, fever, dyspnea, syncope, headache, dizziness, GI bleed, back pain, seizure, CVA, palpatations, mental health, musculoskeletal)? Differential Chest Pain: Stable Angina, Unstable Angina, STEMI, NSTEMI pericarditis, pleurisy, chostochondirits, Pneumothorax, Musculoskeletal, Esophageal Spasm GERD, Cholecystitis, Pancreatitis, Zoster, this is not meant to be an all-inclusive list. EKG interpreted by me (3pts min.). @ -As above X-rays interpreted by me (1pt min.). @No pneumothorax, consolidations, pleural effusions or cardiomegaly, aortic contour appears wnl CT interpreted by me (1pt min.). @ -None done U/S interpreted by me (1pt. min.). @ -None done What testing was considered but not performed or refused? (CT, X-rays, U/S, labs)? Why? @ -None What meds were considered but not given or refused? Why? @ -None Did you discuss the management of the patient with other professionals (professionals i.e. , FEDERICO, JANITORIAL MANAGER, lab, RT, psych nurse, director of social media marketing, varnish blender, teacher, duty officer, manager of case management)? Give summary @ -No Was smoking cessation discussed for >3mins.? @ -No Was critical care preformed (if so, how long)? @ -No Were there social determinants of health that impacted care today? How? (Homelessness, low income, unemployed, alcoholism, drug addiction, transportation, low edu. Level, literacy, decrease access to med. care, group home, rehab)? @ -No Was there de-escalation of care discussed even if they declined (Discuss DNR or withdrawal of care, Hospice)? @ -No What co-morbidities impacted this encounter? (DM, HTN, Smoking, COPD, CAD, Cancer, CVA, ARF, Chemo, Hep., AIDS, mental health diagnosis, sleep apnea, morbid obesity)? @ CAD, DM, HTN Was patient admitted / discharged? Hospital course, mention meds given and route, prescriptions, significant lab abnormalities, going to OR and other pert inent info. @ -Admission-This is a pleasant 69-year-old female presenting today for left- sided chest pressure. States has resolved on arrival. On my assessment well- appearing, pleasant awake and alert. No acute distress. Complete physical exam performed. Has multiple risk factors for ACS. Plan for chest pain workup and anticipate admission. Tylenol ordered for patient's headache. Pt agreeable with POC. Labs and imaging reviewed. Grossly within normal limits. Abnormal values not concerning for acute pathology related to presenting complaint. Patient with elevated heart score will admit for observation. Updated pt to findings. She is agreeable with POC. Case discussed with Dr. Banegas, kindly accepts pt for admission. Undiagnosed new problem with uncertain prognosis? @ -No Drug Therapy requiring intensive monitoring for toxicity (Heparin, Nitro, Insulin, Cardizem)? @ -No Were any procedures done? @ -No Diagnosis/symptom? @ Chest pain Acute, or Chronic, or Acute on Chronic? @ acute Uncomplicated (without systemic symptoms) or Complicated (systemic symptoms)? @ -uncomplicated Side effects of treatment? @ -No Exacerbation, Progression, or Severe Exacerbation? @ -No Poses a threat to life or bodily function? How? (Chest pain, [place], [place], pneumonia, PE, COPD, DKA, ARF, appy, cholecystitis, CVA, Diverticulitis, Homicidal, Suicidal, threat to staff... and all critical care pts) @ Yes - Lab Data Result diagrams: 10/24/24 03:29 10/24/24 03:29 Lab Results 10/23/24 10/23/24 10/23/24 Range/Units 01:23 01:23 01:23 WBC 9.5 (3.8-10.6) k/uL RBC 4.42 (3.80-5.40) m/uL Hgb 13.3 (11.4-16.0) gm/dL Hct 39.9 (34.0-46.0) % MCV 90.2 (80.0-100.0) fL MCH 30.0 (25.0-35.0) pg MCHC 33.2 (31.0-37.0) g/dL RDW 14.2 (11.5-15.5) % Plt Count 276 (150-450) k/uL MPV 7.3 Neutrophils % 49 % Lymphocytes % 41 % Monocytes % 4 % Eosinophils % 3 % Basophils % 1 % Neutrophils # 4.7 (1.3-7.7) k/uL Lymphocytes # 3.9 (1.0-4.8) k/uL Monocytes # 0.4 (0-1.0) k/uL Eosinophils # 0.3 (0-0.7) k/uL Basophils # 0.1 (0-0.2) k/uL PT 9.6 L (10.0-12.5) sec INR 0.8 (<1.2) APTT 18.9 L (22.0-30.0) sec Sodium 132 L (137-145) mmol/L Potassium 4.7 (3.5-5.1) mmol/L Chloride 100 (98-107) mmol/L Carbon Dioxide 19 L (22-30) mmol/L Anion Gap 13 mmol/L BUN 17 (7-17) mg/dL Creatinine 0.88 (0.52-1.04) mg/dL Est GFR (CKD-EPI)AfAm 78 (>60 ml/min/1.73 sqM) Est GFR (CKD-EPI)NonAf 67 (>60 ml/min/1.73 sqM) Glucose 136 H (74-99) mg/dL Calcium 9.5 (8.4-10.2) mg/dL Magnesium 1.9 (1.6-2.3) mg/dL Total Bilirubin 0.3 (0.2-1.3) mg/dL AST 21 (14-36) U/L ALT 17 (4-34) U/L Alkaline Phosphatase 65 (38-126) U/L Troponin I (0.000-0.034) ng/mL NT-Pro-B Natriuret Pep 122 pg/mL Total Protein 7.1 (6.3-8.2) g/dL Albumin 4.5 (3.5-5.0) g/dL Lipase 77 (23-300) U/L 10/23/24 Range/Units 01:23 WBC (3.8-10.6) k/uL RBC (3.80-5.40) m/uL Hgb (11.4-16.0) gm/dL Hct (34.0-46.0) % MCV (80.0-100.0) fL MCH (25.0-35.0) pg MCHC (31.0-37.0) g/dL RDW (11.5-15.5) % Plt Count (150-450) k/uL MPV Neutrophils % % Lymphocytes % % Monocytes % % Eosinophils % % Basophils % % Neutrophils # (1.3-7.7) k/uL Lymphocytes # (1.0-4.8) k/uL Monocytes # (0-1.0) k/uL Eosinophils # (0-0.7) k/uL Basophils # (0-0.2) k/uL PT (10.0-12.5) sec INR (<1.2) APTT (22.0-30.0) sec Sodium (137-145) mmol/L Potassium (3.5-5.1) mmol/L Chloride (98-107) mmol/L Carbon Dioxide (22-30) mmol/L Anion Gap mmol/L BUN (7-17) mg/dL Creatinine (0.52-1.04) mg/dL Est GFR (CKD-EPI)AfAm (>60 ml/min/1.73 sqM) Est GFR (CKD-EPI)NonAf (>60 ml/min/1.73 sqM) Glucose (74-99) mg/dL Calcium (8.4-10.2) mg/dL Magnesium (1.6-2.3) mg/dL Total Bilirubin (0.2-1.3) mg/dL AST (14-36) U/L ALT (4-34) U/L Alkaline Phosphatase (38-126) U/L Troponin I <0.012 (0.000-0.034) ng/mL NT-Pro-B Natriuret Pep pg/mL Total Protein (6.3-8.2) g/dL Albumin (3.5-5.0) g/dL Lipase (23-300) U/L Disposition Clinical Impression: Chest pain Disposition: ADMITTED IP TO THIS HOSP Condition: Stable
[2024-10-23] MEDS: ASPIRIN 81 MG PO STA (01:28)
[2024-10-23] MEDS: ACETAMINOPHEN TAB 500 MG TAB PO STA (01:28)
[2024-10-23 01:49] LABS: Basophils # (A) 0.1 k/uL (0-0.2); Basophils % (A) 1 %; Eosinophils # (A) 0.3 k/uL (0-0.7); Eosinophils % (A) 3 %; HCT 39.9 % (34.0-46.0); HGB 13.3 gm/dL (11.4-16.0); Lymphocytes # (A) 3.9 k/uL (1.0-4.8); Lymphocytes % (A) 41 %; MCHC 33.2 g/dL (31.0-37.0); MCV 90.2 fL (80.0-100.0); Mean Platelet Volume 7.3; Monocytes # (A) 0.4 k/uL (0-1.0); Monocytes % (A) 4 %; Neutrophils # (A) 4.7 k/uL (1.3-7.7); Neutrophils % (A) 49 %; Platelet Count 276 k/uL (150-450); RBC 4.42 m/uL (3.80-5.40); RDW 14.2 % (11.5-15.5); WBC 9.5 k/uL (3.8-10.6)
[2024-10-23 02:15] LABS: ALT 17 U/L (4-34); AST 21 U/L (14-36); African American GFR (CKD) 78 (>60 ml/min/1.73 sqM); Albumin 4.5 g/dL (3.5-5.0); Alkaline Phosphatase 65 U/L (38-126); Anion Gap 13 mmol/L; Blood Urea Nitrogen 17 mg/dL (7-17); Calcium 9.5 mg/dL (8.4-10.2); Carbon Dioxide 19 mmol/L (22-30); Chloride 100 mmol/L (98-107); Glucose 136 mg/dL (74-99); Lipase 77 U/L (23-300); Magnesium 1.9 mg/dL (1.6-2.3); Non-African American GFR(CKD) 67 (>60 ml/min/1.73 sqM); Potassium 4.7 mmol/L (3.5-5.1); Sodium 132 mmol/L (137-145); Total Bilirubin 0.3 mg/dL (0.2-1.3); Total Protein 7.1 g/dL (6.3-8.2)
[2024-10-23 02:23] LABS: NT-Pro-B-Type Natriuretic Pept 122 pg/mL
[2024-10-23 02:26] LABS: INR 0.8 (<1.2); Prothrombin Time 9.6 sec (10.0-12.5)
[2024-10-23 02:32] LABS: Partial Thromboplastin Time 18.9 sec (22.0-30.0)
[2024-10-23] MEDS ORDERED: MORPHINE SULFATE 2 MG/ML SYRINGE IVP PRN (03:11)
[2024-10-23] MEDS ORDERED: NITROGLYCERIN SL TABS 0.4 MG TAB SUBLINGUAL PRN (03:11)
[2024-10-23] MEDS ORDERED: ACETAMINOPHEN TAB 325 MG TAB PO PRN (03:11)
--- NOTE | 2024-10-23 04:52 | XR ---
EXAM: XR Chest, 2 Views CLINICAL HISTORY: ITS.REASON XR Reason: Chest Pain TECHNIQUE: Frontal and lateral views of the chest. COMPARISON: No relevant prior studies available. IMPRESSION: 1. Mild dependent atelectatic changes of the right lung base without acute cardiopulmonary abnormality.
--- NOTE | 2024-10-23 11:29 | P.CRDCN ---
History of Present Illness History of present illness: HISTORY OF PRESENT ILLNESS: This is a 69-year-old female with a past medical history significant for coronary artery disease with previous stenting, hypertension, hyperlipidemia, peripheral vascular disease, and diabetes. Patient follows in the office with Dr. Wilson. We have been asked to see the patient in consultation for chest pain. Patient examined at the bedside in the emergency room. Patient states yesterday she began having pain in the middle of her chest while she was watc alma delia TV. She states that then the pain started to go lower into her chest and also into her back. She denies any worsening pain with ambulation or exertion. She states the pain lasted for a few hours. At the time of examination she denies any chest pain or pressure. She denies any dizziness or lightheadedness. Denies any shortness of breath. DIAGNOSTICS: - EKG reveals sinus mechanism with nonspecific ST-T wave changes. - Chest xray mild dependent atelectatic changes of the right lung base without acute cardiopulmonary abnormality - Laboratory data: WBC 9.5. Hemoglobin 13.3. Platelet count 276. Sodium 132. Potassium 4.7. BUN 17. Creatinine 0.88. Magnesium 1.9. Troponin negative x 3. proBNP 122. - Current home cardiac medications include amlodipine 5 mg at night, atorvastatin 40 mg at night, Plavix 75 mg at night, metoprolol tartrate 25 mg twice a day - Most recent echocardiogram obtained in October 2022 revealed ejection fraction 55%, mild MR, mild TR - Cardiac catheterization history: October 2022 revealing critical stenosis in the mid LAD, patent stent in the proximal LAD and OM1, mild to moderate disease in the mid RCA. Patient underwent stenting of the mid LAD. REVIEW OF SYSTEMS: At the time of my exam: CONSTITUTIONAL: Denies fever or chills. HEENT: Denies blurred vision, vision changes, or eye pain. Denies hemoptysis CARDIOVASCULAR: Denies chest pain. Denies orthopnea. Denies PND. Denies palpitations RESPIRATORY: Denies shortness of breath. GASTROINTESTINAL: Denies abdominal pain. Denies nausea or vomiting. HEMATOLOGIC: Denies bleeding disorders. GENITOURINARY: Denies any blood in urine. SKIN: Denies pruitis. Denies rash. PHYSICAL EXAM: VITAL SIGNS: Reviewed. GENERAL: Well-developed in no acute distress. HEENT: Head is normocephalic. Pupils are equal, round. Sclerae anicteric. Mucous membranes of the mouth are moist. Neck supple. No JVD or thyromegaly LUNGS: Respirations even and unlabored. Lungs essentially clear to auscultation bilaterally. HEART: Regular rate and rhythm. S1 and S2 heard. ABDOMEN: Soft. Nondistended. Nontender. EXTREMITIES: Normal range of motion. No clubbing or cyanosis. Peripheral pulses intact. No lower extremity edema NEUROLOGIC: Awake and alert. Oriented x 3. ASSESSMENT: Chest pain, troponin negative x 3 Coronary artery disease with previous stenting, most recently to mid LAD, 10/2022 Hypertension Hyperlipidemia History of peripheral vascular disease Diabetes History of vertigo, on meclizine outpatient PLAN: An acute coronary event has been ruled out Obtain 2D echo to assess cardiac structure and function Resume home cardiac medications Patient to undergo stress echocardiogram today. If negative, she may be discharged home from a cardiac standpoint Further recommendations pending patient course Nurse practitioner note has been reviewed by physician. Signing provider agrees with the documented findings, assessment, and plan of care documented by SQL SERVER DBA DEVELOPER as a scribe. Past Medical History Past Medical History: Chest Pain / Angina, CVA/TIA, Diabetes Mellitus, Hyperlipidemia, Hypertension, Myocardial Infarction ([place]), Sleep Apnea/CPAP/BIPAP Last Myocardial Infarction Date:: 2006 History of Any Multi-Drug Resistant Organisms: None Reported Past Surgical History: Section, Cholecystectomy, Heart Catheterization With Stent Additional Past Surgical History / Comment(s): 2012 dr wilson repaired/replace a stent Past Anesthesia/Blood Transfusion Reactions: No Reported Reaction Date of Last Stent Placement:: 2012 Past Psychological History: No Psychological Hx Reported Smoking Status: Never smoker Past Alcohol Use History: None Reported Past Drug Use History: None Reported - Past Family History Mother Additional Family Medical History / Comment(s): passed from liver failure. No history of coronary artery disease. Father Additional Family Medical History / Comment(s): passed from kidney failure. No history of coronary artery disease. Sister(s) Family Medical History: No Reported History Brother(s) Family Medical History: No Reported History Daughter(s) Family Medical History: No Reported History Son(s) Additional Family Medical History / Comment(s): both sons have addiction problems, depression and anxiety Medications and Allergies Home Medications Medication Instructions Recorded Confirmed Type Citalopram Hydrobromide [CeleXA] 40 mg PO HS 09/19/17 10/23/24 History Meclizine HCl 25 mg PO DAILY 09/19/17 10/23/24 History Metoprolol Tartrate [Lopressor] 25 mg PO BID 09/19/17 10/23/24 History metFORMIN HCL [Glucophage] 1,000 mg PO BID 09/19/17 10/23/24 History Pantoprazole [Protonix] 40 mg PO BID 11/06/22 10/23/24 History Clopidogrel [Plavix] 75 mg PO HS 01/13/24 10/23/24 History Insulin Degludec [Tresiba 30 units SQ HS 01/14/24 10/23/24 History Flextouch U-200 Pen] Atorvastatin Calcium [Lipitor] 40 mg PO HS 10/23/24 10/23/24 History Pioglitazone [Actos] 15 mg PO HS 10/23/24 10/23/24 History Semaglutide [Ozempic] 1 mg SQ BARNARD 10/23/24 10/23/24 History amLODIPine [Norvasc] 5 mg PO HS 10/23/24 10/23/24 History Allergies Allergy/AdvReac Type Severity Reaction Status Date / Time No Known Allergies Allergy Verified 10/23/24 07:32 Physical Exam Vitals: Vital Signs Temp Pulse Resp BP Pulse Ox 10/23/24 09:00 98.0 F 61 16 116/69 98 10/23/24 05:39 98.2 F 67 16 100/53 96 10/23/24 03:51 68 16 113/56 97 10/23/24 02:15 64 16 121/76 99 10/23/24 00:56 98.7 F 65 16 160/75 98 Intake and Output 10/22/24 10/23/24 10/23/24 22:59 06:59 14:59 Other: Weight 79.379 kg Results 10/23/24 01:23 10/23/24 01:23 Cardiac Enzymes 10/23/24 10/23/24 10/23/24 Range/Units 01:23 01:23 03:45 AST 21 (14-36) U/L Troponin I <0.012 <0.012 (0.000-0.034) ng/mL 10/23/24 Range/Units 05:29 AST (14-36) U/L Troponin I <0.012 (0.000-0.034) ng/mL Coagulation 10/23/24 Range/Units 01:23 PT 9.6 L (10.0-12.5) sec APTT 18.9 L (22.0-30.0) sec CBC 10/23/24 Range/Units 01:23 WBC 9.5 (3.8-10.6) k/uL RBC 4.42 (3.80-5.40) m/uL Hgb 13.3 (11.4-16.0) gm/dL Hct 39.9 (34.0-46.0) % Plt Count 276 (150-450) k/uL Comprehensive Metabolic Panel 10/23/24 Range/Units 01:23 Sodium 132 L (137-145) mmol/L Potassium 4.7 (3.5-5.1) mmol/L Chloride 100 (98-107) mmol/L Carbon Dioxide 19 L (22-30) mmol/L BUN 17 (7-17) mg/dL Creatinine 0.88 (0.52-1.04) mg/dL Glucose 136 H (74-99) mg/dL Calcium 9.5 (8.4-10.2) mg/dL AST 21 (14-36) U/L ALT 17 (4-34) U/L Alkaline Phosphatase 65 (38-126) U/L Total Protein 7.1 (6.3-8.2) g/dL Albumin 4.5 (3.5-5.0) g/dL Current Medications Generic Name Dose Route Start Last Admin Trade Name Freq PRN Reason Stop Dose Admin Acetaminophen 650 mg 10/23/24 03:11 Acetaminophen Tab 325 Mg Tab PO Q4HR PRN Pain Clopidogrel Bisulfate 75 mg 10/23/24 21:00 Clopidogrel 75 Mg Tab PO HS AISLINN Morphine Sulfate 2 mg 10/23/24 03:11 Morphine Sulfate 2 Mg/Ml Syringe IVP Q5M PRN Chest Pain Nitroglycerin 0.4 mg 10/23/24 03:11 Nitroglycerin Sl Tabs 0.4 Mg Tab SUBLINGUAL Q5M PRN Chest Pain Intake and Output 10/22/24 10/23/24 10/23/24 22:59 06:59 14:59 Other: Weight 79.379 kg 10/23/24 01:23 10/23/24 01:23
[2024-10-23] MEDS ORDERED: DEXTROSE 50% SYRINGE 50 ML IVP PRN ×2 (13:14)
--- NOTE | 2024-10-23 13:19 | P.HPIM ---
History of Present Illness H&P Date: 10/23/24 Chief Complaint: Chest pain Patient is a 69-year-old female with diabetes mellitus, hyperlipidemia, hypertension, history of CVA/TIA, history of CAD status post 6 stents in the past (last stent about 2 to 4 years ago), and sleep apnea presents earlier today to the emergency department for chest pain. Patient was seen at bedside. Patient reports that yesterday around 2 PM she started having left-sided chest pain that radiated down towards her left breast while she was sitting in the sofa watching TV. She described it felt like a belt around her chest along with some pressure sensation in the substernal region. She said it does feel similar to her heart attacks in the past. She reports chest pain to be intermittent, with a 6 out of 10 severity. Each episode lasted about 20 minutes. Patient did take 1 sublingual nitroglycerin about 1 hour prior to arrival to the ED without relief of pain. Patient also reports feeling dizzy, but no loss of consciousness, passing out, syncope. Patient denies fever, chills, shortness of breath, nausea, vomiting, belly pain, lower extremity swelling, dysuria, hematochezia/melena, diarrhea/constipation, upper or lower extremity numbness/tingling. ED documentation reviewed. In the ED patient was treated with aspirin 324 mg x 1, Tylenol 1000 mg p.o. x 1 Vitals on admission temperature 98, pulse rate 61, respiratory rate 16, blood pressure 160/69, O2 sat 98% on room air EKG independently interpreted as sinus bradycardia with a ventricular rate of 58 bpm, QTc interval 428 ms, low QRS voltage in precordial leads CXR shows mild dependent atelectatic changes of the right lung base without acute cardiopulmonary abnormality Labs on admission show WBC 9.5, hemoglobin 13.3, hematocrit 39.9, platelets 276, PT 9.6, PTT 18.9, INR 0.8, sodium 132, potassium 4.7, chloride 100, carbon dioxide 19, BUN 17, creatinine 0.88, glucose 136, troponin less than 0.012 x 3, BNP 122 Review of systems: Pertinent positives and negatives as discussed in HPI, a complete review of systems was performed and all other systems are negative. PMH: diabetes mellitus, hyperlipidemia, hypertension, history of CVA/TIA, history of CAD status post stenting, and sleep apnea PSH: , cholecystectomy, heart cath with stent FMH: Mother and father had no history of coronary artery disease Allergies: No known drug allergies Social history: Tobacco: Never smoker Alcohol: No alcohol use Recreational drugs: No drug use Travel: No travel history Sick contacts: No sick contacts Physical examination: Vital signs reviewed General: nontoxic, no distress, appears at stated age Derm: warm, dry, intact Head: atraumatic, normocephalic, symmetric Eyes: EOMI, anicteric sclera Mouth: no lip lesion, mucus membranes moist Cardiovascular: S1 S2 reg, no murmur Lungs: CTA bilateral, no rhonchi, no rales, no accessory muscle use Abdominal: soft, non-tender to palpation Extremities: No cyanosis, clubbing, or pedal edema. Neuro: Alert, Oriented to time, person, place, Gross neurological examination did not reveal any focal deficits. Cranial nerves II to XII grossly intact. Bilateral upper and lower extremity muscle strength intact and sensation intact. Psych: well appearing, appropriate affect Assessment/Plan: Patient is a 69-year-old female with diabetes mellitus, hyperlipidemia, hypertension, history of CVA/TIA, history of CAD status post stenting, and sleep apnea presents today to the emergency department for chest pain. Patient will be admitted to the internal medicine service. Active: #. Chest pain with atypical features, rule out ACS Troponin less than 0.012 x 3 EKG interpreted as sinus bradycardia with a ventricular rate of 58 bpm, QTc interval 428 ms, low QRS voltage in precordial leads BNP 122 Continue aspirin 81 mg daily and Plavix 75 mg at bedtime Cardiology consulted, await results from stress test Continue cardiac monitoring Order echocardiogram Obtain lipid panel #. Hyponatremia Sodium 132 Initiate normal saline at 75 cc an hour Monitor morning BMP #. Hyperglycemia with a history of diabetes mellitus Takes 30 units insulin at bedtime Initiate sliding scale insulin Chronic: #. Hypertension Continue home amlodipine 5 mg at bedtime and metoprolol tartrate 25 mg twice daily #. Hyperlipidemia Continue home atorvastatin 40 mg at bedtime #. GERD Continue pantoprazole 40 mg twice daily F: No restrictions E: Replete as needed N: Heart healthy diet A: Ambulatory DVT prophylaxis: Lovenox 40 mg subcu daily The patient is admitted with an anticipated less than 2 midnight stay for evaluation of chest pain CODE STATUS: Full code Discussed with: Patient Anticipated discharge place: Home Attestation: I have personally seen and examined the patient with Resident, reviewed the documentation and participated and agree with the assessment and plan as written. Abilio Lafleur MD Past Medical History Past Medical History: Chest Pain / Angina, CVA/TIA, Diabetes Mellitus, Hyperlipidemia, Hypertension, Myocardial Infarction (NM), Sleep Apnea/CPAP/BIPAP Last Myocardial Infarction Date:: 2006 History of Any Multi-Drug Resistant Organisms: None Reported Past Surgical History: Section, Cholecystectomy, Heart Catheterization With Stent Additional Past Surgical History / Comment(s): 2012 dr wilson repaired/replace a stent Past Anesthesia/Blood Transfusion Reactions: No Reported Reaction Date of Last Stent Placement:: 2012 Past Psychological History: No Psychological Hx Reported Smoking Status: Never smoker Past Alcohol Use History: None Reported Past Drug Use History: None Reported - Past Family History Mother Additional Family Medical History / Comment(s): passed from liver failure. No history of coronary artery disease. Father Additional Family Medical History / Comment(s): passed from kidney failure. No history of coronary artery disease. Sister(s) Family Medical History: No Reported History Brother(s) Family Medical History: No Reported History Daughter(s) Family Medical History: No Reported History Son(s) Additional Family Medical History / Comment(s): both sons have addiction problems, depression and anxiety Medications and Allergies Home Medications Medication Instructions Recorded Confirmed Type Citalopram Hydrobromide [CeleXA] 40 mg PO HS 09/19/17 10/23/24 History Meclizine HCl 25 mg PO DAILY 09/19/17 10/23/24 History Metoprolol Tartrate [Lopressor] 25 mg PO BID 09/19/17 10/23/24 History metFORMIN HCL [Glucophage] 1,000 mg PO BID 09/19/17 10/23/24 History Pantoprazole [Protonix] 40 mg PO BID 11/06/22 10/23/24 History Clopidogrel [Plavix] 75 mg PO HS 01/13/24 10/23/24 History Insulin Degludec [Tresiba 30 units SQ HS 01/14/24 10/23/24 History Flextouch U-200 Pen] Atorvastatin Calcium [Lipitor] 40 mg PO HS 10/23/24 10/23/24 History Pioglitazone [Actos] 15 mg PO HS 10/23/24 10/23/24 History Semaglutide [Ozempic] 1 mg SQ BARNARD 10/23/24 10/23/24 History amLODIPine [Norvasc] 5 mg PO HS 10/23/24 10/23/24 History Losartan [Cozaar] 12.5 mg PO DAILY #30 tab 10/24/24 Rx Allergies Allergy/AdvReac Type Severity Reaction Status Date / Time No Known Allergies Allergy Verified 10/23/24 07:32 Physical Exam Vitals: Vital Signs Temp Pulse Resp BP Pulse Ox 10/23/24 09:00 98.0 F 61 16 116/69 98 10/23/24 05:39 98.2 F 67 16 100/53 96 10/23/24 03:51 68 16 113/56 97 10/23/24 02:15 64 16 121/76 99 10/23/24 00:56 98.7 F 65 16 160/75 98 Intake and Output 10/22/24 10/23/24 10/23/24 22:59 06:59 14:59 Other: Weight 79.379 kg Results CBC & Chem 7: 10/24/24 03:29 10/24/24 03:29 Labs: Abnormal Lab Results - Last 24 Hours (Table) 10/23/24 10/23/24 Range/Units 01:23 01:23 PT 9.6 L (10.0-12.5) sec APTT 18.9 L (22.0-30.0) sec Sodium 132 L (137-145) mmol/L Carbon Dioxide 19 L (22-30) mmol/L Glucose 136 H (74-99) mg/dL
--- NOTE | 2024-10-23 13:21 | CA ---
Stress Echo Report Roz Hameed Age: 69 Gender: F : 1955 Exam Date: 10/23/2024 12:10 Exam Location: [place] Stress Ht (in): 66 Wt (lb): 175 Ordering Physician: Shanti Armenta Referring Physician: [id number] Mica Sizer: Joon Aguilar Technologist Procedure CPT: Indication: CP ICD-9 Codes: Rhythm: Patient History: Cardiac Medications: SEE CHART Medications in past 24 hours: Contrast: Definity Stress Results Protocol: Ascencion Total dose(mL): 2 Exercise Duration (min:sec): 5:[address] Depression (mm): Angina Score: Mendoza Score: METS: 7.1 Resting HR: 68 Resting BP: 133 / 70 Peak HR: 127 Peak BP: 192 / 75 Max Predicted HR: 150 85 % Max Predicted HR Target HR: 128 Double Product: [id number] Stress Summary: BP Response: Reason for Termination: SEVERE SHORT OF BREATH/MAX EFFORT Cardiac Symptoms: SHORT OF BREATH ECG Analysis Resting ECG: Stress ECG: Arrhythmia: Echo Analysis Resting Echo: Peak Echo Analysis: MEASUREMENTS (Male/Female) Normal Values CONCLUSIONS Average exercise tolerance Mild EKG changes noted on recovery Normal echocardiogram in response to exercise with no evidence of wall motion abnormalities Dr. Griffin Ferreira MD (Electronically Signed) Final Date: 23 October 2024 13:20
[2024-10-23] MEDS: SODIUM CHLORIDE 0.9% 1,000 ML IV SCH (14:18)
[2024-10-23 14:23] LABS: Glucose,Whole Blood 129 mg/dL (70-110)
[2024-10-23 17:12] LABS: Glucose,Whole Blood 130 mg/dL (70-110)
[2024-10-23] MEDS: INSULIN ASPART (NovoLOG) 100 UNIT/ML VIAL SQ SCH (17:12)
[2024-10-23] MEDS: PANTOPRAZOLE 40 MG TABLET PO SCH (17:17)
[2024-10-23 20:07] LABS: Glucose,Whole Blood 183 mg/dL (70-110)
[2024-10-23] MEDS: amLODIPine 5 MG TAB PO SCH (20:17)
[2024-10-23] MEDS: ATORVASTATIN 40 MG TAB PO SCH (20:17)
[2024-10-23] MEDS: METOPROLOL TARTRATE 25 MG TAB PO SCH (20:18)
[2024-10-23] MEDS: CLOPIDOGREL 75 MG TAB PO SCH (20:18)
--- NOTE | 2024-10-24 07:35 | CA ---
Transthoracic Echo Report Name: Roz Hameed Age: 69 Gender: F : 1955 Exam Date: 10/23/2024 14:02 Exam Location: [facility] Echo Ht (in): 66 Wt (lb): 175 Ordering Physician: Shanti Armenta Attending/Referring Phys: [id number], Geovany Pool Table Mechanic Roberta Ballard RDCS Procedure CPT: Indications: LV function, chest pain, history of CAD Cardiac Hx: Technical Quality: Good Contrast 1: Total Dose (mL): Contrast 2: Total Dose (mL): MEASUREMENTS (Male / Female) Normal Values 2D ECHO LV Diastolic Diameter PLAX 5.2 cm 4.2 - 5.9 / 3.9 - 5.3 cm LV Systolic Diameter PLAX 3.4 cm IVS Diastolic Thickness 0.9 cm 0.6 - 1.0 / 0.6 - 0.9 cm LVPW Diastolic Thickness 1.1 cm 0.6 - 1.0 / 0.6 - 0.9 cm LV Relative Wall Thickness 0.4 RV Internal Dim ED PLAX 3.7 cm LA Systolic Diameter LX 3.6 cm 3.0 - 4.0 / 2.7 - 3.8 cm LV Diastolic Volume MOD BP 84.8 cm??? 67 - 155 / 56 - 104 cm??? LV Systolic Volume MOD BP 39.5 cm??? 22 - 58 / 19 - 49 cm??? LV Ejection Fraction MOD BP 53.4 % >= 55 % LV Cardiac Index MOD BP 1748.3 cm???/min???m??? LV Diastolic Volume MOD 4C 73.7 cm??? LV Systolic Volume MOD 4C 35.6 cm??? LV Ejection Fraction MOD 4C 51.6 % LV Cardiac Index MOD 4C 1469.7 cm???/min???m??? LV Diastolic Length 4C 7.6 cm LV Systolic Length 4C 6.5 cm LV Diastolic Volume MOD 2C 96.9 cm??? LV Systolic Volume MOD 2C 44.1 cm??? LV Ejection Fraction MOD 2C 54.5 % LV Cardiac Index MOD 2C 2038.2 cm???/min???m??? LV Diastolic Length 2C 7.6 cm LV Systolic Length 2C 6.8 cm M-MODE Aortic Root Diameter MM 3.4 cm AV Cusp Separation MM 2.0 cm DOPPLER AV Peak Velocity 128.4 cm/s AV Peak Gradient 6.6 mmHg Mitral E Point Velocity 101.0 cm/s Mitral A Point Velocity 114.1 cm/s Mitral E to A Ratio 0.9 MV Deceleration Time 259.8 ms MV E' Velocity 8.2 cm/s Mitral E to MV E' Ratio 12.4 TR Peak Velocity 235.4 cm/s TR Peak Gradient 22.2 mmHg Right Ventricular Systolic Press 32.2 mmHg FINDINGS Left Ventricle Left ventricular ejection fraction is estimated at 55-60 %. Left ventricular cavity size normal. Mildly increased posterior wall thickness. Mildly decreased left ventricular ejection fraction. Right Ventricle Mild right ventricular dilatation. Right ventricular systolic pressure within normal limits. Right Atrium Normal right atrial size. No right atrial thrombus or mass seen. Left Atrium Normal left atrial size. No left atrial thrombus or mass present. Mitral Valve Structurally normal mitral valve. Mild to moderate mitral regurgitation. Aortic Valve Trileaflet aortic valve. Aortic valve sclerosis. Mild aortic regurgitation. Tricuspid Valve Structurally normal tricuspid valve. Mild tricuspid regurgitation. Pulmonic Valve Structurally normal pulmonic valve. No pulmonic regurgitation. Pericardium No pericardial effusion. Aorta Normal size aortic root and proximal ascending aorta. CONCLUSIONS Technically difficult study for interpretation Normal biventricular systolic function Mildly dilated right ventricle Mild to moderate mitral regurgitation Normal pulmonary artery systolic pressure No pericardial effusion Previewed by: Dr. Griffin Ferreira MD (Electronically Signed) Final Date: 24 October 2024 07:35
[2024-10-24 08:31] LABS: Glucose,Whole Blood 129 mg/dL (70-110)
[2024-10-24 09:00] LABS: BUN/Creat Ratio 17.71 Ratio (12.00-20.00); Blood Urea Nitrogen 12.4 mg/dL (9.0-27.0); Carbon Dioxide 24.1 mmol/L (21.6-31.8); Chloride 101 mmol/L (96-109); Chol/HDL Ratio 2.88 Ratio; Glucose 192 mg/dL (70-110); Potassium 4.1 mmol/L (3.5-5.5); Sodium 136 mmol/L (135-145)
[2024-10-24 09:01] LABS: Calcium 9.3 mg/dL (8.7-10.3)
[2024-10-24 09:02] VITALS: TEMP 97.9
[2024-10-24 09:03] LABS: Basophils # (A) 0.05 X 10*3/uL (0.00-0.10); Basophils % (A) 0.6 %; Eosinophils # (A) 0.18 X 10*3/uL (0.04-0.35); Eosinophils % (A) 2.1 %; HCT 35.8 % (37.2-46.3); HGB 11.6 g/dL (12.0-15.0); Lymphocytes # (A) 2.89 X 10*3/uL (0.90-5.00); Lymphocytes % (A) 33.4 %; MCHC 32.4 g/dL (32.0-37.0); MCV 89.5 FL (80.0-97.0); Monocytes # (A) 0.49 X 10*3/uL (0.20-1.00); Monocytes % (A) 5.7 %; NRBC Per 100 WBC 0 X 10*3/uL (0.00-0.01); Neutrophils # (A) 5.01 X 10*3/uL (1.80-7.70); Neutrophils % (A) 57.9 %; Platelet Count 266 X 10*3/uL (140-440); RDW 14.1 % (11.5-14.5); WBC 8.65 X 10*3/uL (4.50-10.00)
[2024-10-24] MEDS: ENOXAPARIN 40 MG/0.4 ML SYRINGE SQ SCH (09:33)
[2024-10-24] MEDS: ASPIRIN 81 MG PO SCH (09:35)
--- NOTE | 2024-10-24 10:48 | P.PN ---
Subjective HISTORY OF PRESENT ILLNESS: This is a 69-year-old female with a past medical history significant for coronary artery disease with previous stenting, hypertension, hyperlipidemia, peripheral vascular disease, and diabetes. Patient follows in the office with Dr. Hsu. We have been asked to see the patient in consultation for chest pain. Patient examined at the bedside in the emergency room. Patient states yesterday she began having pain in the middle of her chest while she was watching TV. She states that then the pain started to go lower into her chest and also into her back. She denies any worsening pain with ambulation or exertion. She states the pain lasted for a few hours. At the time of examination she denies any chest pain or pressure. She denies any dizziness or lightheadedness. Denies any shortness of breath. DIAGNOSTICS: - EKG reveals sinus mechanism with nonspecific ST-T wave changes. - Chest xray mild dependent atelectatic changes of the right lung base without acute cardiopulmonary abnormality - Laboratory data: WBC 9.5. Hemoglobin 13.3. Platelet count 276. Sodium 132. Potassium 4.7. BUN 17. Creatinine 0.88. Magnesium 1.9. Troponin negative x 3. proBNP 122. - Current home cardiac medications include amlodipine 5 mg at night, atorvastatin 40 mg at night, Plavix 75 mg at night, metoprolol tartrate 25 mg twice a day - Most recent echocardiogram obtained in October 2022 revealed ejection fraction 55%, mild MR, mild TR - Cardiac catheterization history: October 2022 revealing critical stenosis in the mid LAD, patent stent in the proximal LAD and OM1, mild to moderate disease in the mid RCA. Patient underwent stenting of the mid LAD. 10/24/2024 Patient underwent stress echocardiogram yesterday which was negative for ischemia. Patient examined Aracelis at the bedside. Patient denies any further episodes of chest pain or pressure. Vital signs are stable. Echocardiogram completed revealing ejection fraction 55 to 60%, mild to moderate MR, no pericardial effusion PHYSICAL EXAM: VITAL SIGNS: Reviewed. GENERAL: Well-developed in no acute distress. HEENT: Head is normocephalic. Pupils are equal, round. Sclerae anicteric. Mucous membranes of the mouth are moist. Neck supple. No JVD or thyromegaly LUNGS: Respirations even and unlabored. Lungs essentially clear to auscultation bilaterally. HEART: Regular rate and rhythm. S1 and S2 heard. ABDOMEN: Soft. Nondistended. Nontender. EXTREMITIES: Normal range of motion. No clubbing or cyanosis. Peripheral pulses intact. No lower extremity edema NEUROLOGIC: Awake and alert. Oriented x 3. ASSESSMENT: Chest pain, troponin negative x 3, status post negative stress echo Coronary artery disease with previous stenting, most recently to mid LAD, 10/2022 Hypertension Hyperlipidemia History of peripheral vascular disease Diabetes History of vertigo, on meclizine outpatient PLAN: Continue current cardiac medications Patient is stable for discharge home today from a cardiac standpoint We will sign off. Please reconsult if needed. Nurse practitioner note has been reviewed by physician. Signing provider agrees with the documented findings, assessment, and plan of care documented by MANUFACTURING ASSISTANT as a scribe. Objective - Vital Signs Vital signs: Vital Signs Temp 97.9 F 10/24/24 09:01 Pulse 70 10/24/24 09:01 Resp 15 10/24/24 09:01 BP 127/85 10/24/24 09:01 Pulse Ox 98 10/24/24 09:01 FiO2 Intake & Output 10/23/24 10/24/24 10/24/24 18:59 06:59 18:59 Weight 79.379 kg - Labs CBC & Chem 7: 10/24/24 03:29 10/24/24 03:29 Labs: Abnormal Lab Results - Last 24 Hours (Table) 10/23/24 10/23/24 10/23/24 Range/Units 14:20 17:11 20:05 RBC (4.10-5.20) X 10*6/uL Hgb (12.0-15.0) g/dL Hct (37.2-46.3) % Glucose (70-110) mg/dL POC Glucose (mg/dL) 129 H 130 H 183 H (70-110) mg/dL Hemoglobin A1c (<=6.0) % Triglycerides (0.00-149.00) mg/dL 10/24/24 10/24/24 10/24/24 Range/Units 03:29 03:29 03:29 RBC 4.00 L (4.10-5.20) X 10*6/uL Hgb 11.6 L (12.0-15.0) g/dL Hct 35.8 L (37.2-46.3) % Glucose 192 H (70-110) mg/dL POC Glucose (mg/dL) (70-110) mg/dL Hemoglobin A1c 7.3 H (<=6.0) % Triglycerides 182.00 H (0.00-149.00) mg/dL 10/24/24 Range/Units 08:29 RBC (4.10-5.20) X 10*6/uL Hgb (12.0-15.0) g/dL Hct (37.2-46.3) % Glucose (70-110) mg/dL POC Glucose (mg/dL) 129 H (70-110) mg/dL Hemoglobin A1c (<=6.0) % Triglycerides (0.00-149.00) mg/dL
[2024-10-24 13:47] VITALS: BP 111/76; PULSE 58; RESP 18
--- NOTE | 2024-10-24 14:37 | P.DS ---
Providers Date of admission: 10/23/24 03:11 Expected date of discharge: 10/24/24 Attending physician: Varun Hartley Consults: Cardiology Primary care physician: Varun Hartley [facility] Course: Patient is a 69-year-old female with diabetes mellitus, hyperlipidemia, hypertension, history of CVA/TIA, history of CAD status post 6 stents in the past (last stent about 2-4 years ago), and sleep apnea presented on 10/23/2024 to the emergency department for chest pain. Patient was seen at bedside. Patient reports that yesterday around 2 PM she started having left-sided chest pain that radiated down towards her left breast while she was sitting in the sofa watching TV. She described it felt like a belt around her chest along with some pressure sensation in the substernal region. She said it does feel similar to her heart attacks in the past. She reports chest pain to be intermittent, with a 6 out of 10 severity. Each episode lasted about 20 minutes. Patient did take 1 sublingual nitroglycerin about 1 hour prior to arrival to the ED without relief of pain. Patient also reports feeling dizzy, but no loss of consciousness, passing out, syncope. Patient denies fever, chills, shortness of breath, nausea, vomiting, belly pain, lower extremity swelling, dysuria, hematochezia/melena, diarrhea/constipation, upper or lower extremity numbness/tingling. Vitals on admission include temperature 98, pulse rate 61, respiratory rate 16, blood pressure 160/69, O2 sat 98% on room air. EKG showed sinus bradycardia with a ventricular rate of 58 bpm. Chest x-ray shows mild dependent atelectatic changes of the right lung base without acute cardiopulmonary abnormality. Labs on admission was significant for sodium 132, glucose 136 with a troponin less than 0.012 x 3, BNP 122. Patient was admitted to internal medicine service and worked up before chest pain with atypical features rule out ACS. During the course of patient's hospitalization, cardiology was consulted and patient underwent stress test and echocardiogram. Stress echo showed normal echocardiogram and response to exercise with no evidence of wall motion abnormalities. Patient's echocardiogram result showed left ventricular ejection fraction of 55 to 60%. Patient seen on 10/24/2024 with no acute complaints. She denied any further chest pain episodes. Patient was also found to be slightly hyponatremic during initial presentation and this resolved with normal saline. Patient is currently stable to be discharged back home and follow-up with her primary care physician Dr. Hartley and register in chancery Dr. Hsu. Losartan 12.5 mg daily will be added to patient's home medication list. Discharge physical examination GENERAL: This is a 69-year-old in no apparent distress at the time of examination. Pleasant and cooperative. HEENT: Head is atraumatic, normocephalic. Pupils are equal, round, and reactive to light. Sclerae anicteric. Conjunctivae are clear. Mucus membranes of the mouth are moist. Neck is supple. RESPIRATORY: Clear to auscultation. No wheezes, rales, or rhonchi. No use of accessory muscles. Patient maintaining oxygen saturation greater than 92%. No chest wall tenderness is noted on palpation or with deep breathing. CARDIOVASCULAR: Regular rate and rhythm. S1 and S2 noted. No systolic or diastolic murmur auscultated. No JVD noted. No S3 or S4 noted. GASTROINTESTINAL: No distention noted. Abdomen soft and round. Normal active bowel sounds auscultated x 4 quadrants. No pain or tenderness noted upon palpation. INTEGUMENTARY: No cyanosis. No jaundice. No rashes noted. No cellulitis noted. EXTREMITIES: 2+ peripheral pulses. No evidence of peripheral edema. No calf tenderness noted. NEUROLOGIC: Cranial nerves II-XII intact. PSYCHIATRIC: Awake, alert. Appropriate affect. Intact judgement and insight. Attestation: I have personally seen and examined the patient with Resident, reviewed the documentation and participated and agree with the assessment and plan as written. Abilio Lafleur MD Assessment: Chest pain with atypical features Hyponatremia Pertinent Studies: Echocardiogram on 10/23/2024: Normal biventricular systolic function with left ventricular ejection fraction estimated at 55 to 60% Stress echo on 10/23/2024: Normal echocardiogram and response to exercise with no evidence of wall motion abnormalities Procedures: Echocardiogram Stress echo Patient Condition at Discharge: Stable Plan - Discharge Summary New Discharge Prescriptions: New Losartan [Cozaar] 12.5 mg PO DAILY #30 tab Continue metFORMIN HCL [Glucophage] 1,000 mg PO BID Metoprolol Tartrate [Lopressor] 25 mg PO BID Citalopram Hydrobromide [CeleXA] 40 mg PO HS Meclizine HCl 25 mg PO DAILY Pantoprazole [Protonix] 40 mg PO BID Atorvastatin Calcium [Lipitor] 40 mg PO HS Clopidogrel [Plavix] 75 mg PO HS Insulin Degludec [Tresiba Flextouch U-200 Pen] 30 units SQ HS Pioglitazone [Actos] 15 mg PO HS amLODIPine [Norvasc] 5 mg PO HS Semaglutide [Ozempic] 1 mg SQ BARNARD Discharge Medication List Citalopram Hydrobromide [CeleXA] 40 mg PO HS 09/19/17 [History] Meclizine HCl 25 mg PO DAILY 09/19/17 [History] Metoprolol Tartrate [Lopressor] 25 mg PO BID 09/19/17 [History] metFORMIN HCL [Glucophage] 1,000 mg PO BID 09/19/17 [History] Pantoprazole [Protonix] 40 mg PO BID 11/06/22 [History] Clopidogrel [Plavix] 75 mg PO HS 01/13/24 [History] Insulin Degludec [Tresiba Flextouch U-200 Pen] 30 units SQ HS 01/14/24 [History] Atorvastatin Calcium [Lipitor] 40 mg PO HS 10/23/24 [History] Pioglitazone [Actos] 15 mg PO HS 10/23/24 [History] Semaglutide [Ozempic] 1 mg SQ BARNARD 10/23/24 [History] amLODIPine [Norvasc] 5 mg PO HS 10/23/24 [History] Losartan [Cozaar] 12.5 mg PO DAILY #30 tab 10/24/24 [Rx] Follow up Appointment(s)/Referral(s): Varun Hartley MD [Primary Care Provider] - 1-2 days Danisha Hsu MD [STAFF PHYSICIAN] - 1 Week Patient Instructions/Handouts: Chest Pain (ED) Activity/Diet/Wound Care/Special Instructions: Please follow up with primary care and cardiology Discharge Disposition: HOME SELF-CARE
== END 2024-10-24 13:50 | disposition home or self-care (01) ==
LOC: EC 00:43 → 6NMEDSUR 03:11
PROVIDERS: ADMIT Internal Medicine Geriatric Medicine; ATTEND Internal Medicine Geriatric Medicine
DX: R07.89 Other chest pain (principal); R00.1 Bradycardia, unspecified; R42 Dizziness and giddiness; E87.1 Hypo-osmolality and hyponatremia; E11.65 Type 2 diabetes mellitus with hyperglycemia; I25.10 Atherosclerotic heart disease of native coronary artery without angina pectoris; I10 Essential (primary) hypertension; E78.5 Hyperlipidemia, unspecified; G47.30 Sleep apnea, unspecified; E11.51 Type 2 diabetes mellitus with diabetic peripheral angiopathy without gangrene; K21.9 Gastro-esophageal reflux disease without esophagitis; I25.2 Old myocardial infarction; Z86.73 Personal history of transient ischemic attack (TIA), and cerebral infarction without residual deficits; Z95.5 Presence of coronary angioplasty implant and graft; Z79.02 Long term (current) use of antithrombotics/antiplatelets; Z79.4 Long term (current) use of insulin; Z79.82 Long term (current) use of aspirin; Z79.84 Long term (current) use of oral hypoglycemic drugs; Z79.85 Long-term (current) use of injectable non-insulin antidiabetic drugs; Z79.899 Other long term (current) drug therapy
CPT/HCPCS: 96360; 96361 ×2; 99285; 36415; 93005 ×2; 93306; 83880; 80061; 80053; 80048; 83690; 83735; 84484; 85025 ×2; 85610; 85730; 83036; 71046; G0378 ×2; C8930; Q9957; 93351